=== PATIENT | male | born 1965 | race Caucasian/White ===

== ENCOUNTER → 2018-04-10 09:07 | Outpatient (REF) | payer MEDICAID, SELFPAY ==
[2018-04-10 20:16] LABS: Abs Immature Grans 0.01 k/cumm (0.0-0.09); Absolute Basophil Count 0.02 k/cumm (0.0-0.2); Absolute Eosinophil Count 0.43 k/cumm (0.0-0.7); Absolute Lymphocyte Count 2.38 k/cumm (1.2-3.4); Absolute Monocyte Count 0.66 k/cumm (0.11-0.7); Absolute Neutrophil Count 4.46 k/cumm (1.2-6.7); Basophils % 0.3; Eosinophils % 5.4; HGB 13.5 g/dL (13.5-17.5); Immature Grans % 0.1; Lymphocytes % 29.9; Mean Corp. HGB Concentration 32.9 g/dL (32.0-36.0); Mean Corpuscular Hemoglobin 31.5 pg (27.0-33.0); Mean Corpuscular Volume 95.6 fL (80-95); Mean Platelet Volume 10.9 fL (8.0-11.0); Monocytes % 8.3; Platelet Count 151 x1000/uL (130-400); RBC 4.29 m/cumm (4.50-6.00); RBC Distribution Width 14.9 % (11.8-14.1); White Blood Cell Count 7.96 k/cumm (4.4-10.8)
== END ==
LOC: NCHCN 09:07
PROVIDERS: PCP Internal Medicine; Visit Provider Internal Medicine
DX: F20.9 Schizophrenia, unspecified (principal); Z79.899 Other long term (current) drug therapy
CPT/HCPCS: 85025

== ENCOUNTER → 2018-05-08 15:51 | Outpatient (REF) | payer MEDICAID, SELFPAY ==
[2018-05-08 19:46] LABS: Abs Immature Grans 0.01 k/cumm (0.0-0.09); Absolute Basophil Count 0.02 k/cumm (0.0-0.2); Absolute Eosinophil Count 0.22 k/cumm (0.0-0.7); Absolute Lymphocyte Count 2.11 k/cumm (1.2-3.4); Absolute Monocyte Count 0.72 k/cumm (0.11-0.7); Absolute Neutrophil Count 6.09 k/cumm (1.2-6.7); Basophils % 0.2; Eosinophils % 2.4; HCT 42.9 % (40.0-50.0); Immature Grans % 0.1; Mean Corp. HGB Concentration 32.6 g/dL (32.0-36.0); Mean Corpuscular Hemoglobin 31.1 pg (27.0-33.0); Mean Corpuscular Volume 95.3 fL (80-95); Mean Platelet Volume 10.2 fL (8.0-11.0); Monocytes % 7.9; Neutrophils % 66.4; Platelet Count 169 x1000/uL (130-400); RBC Distribution Width 14.9 % (11.8-14.1); White Blood Cell Count 9.17 k/cumm (4.4-10.8)
== END ==
LOC: NCHCN 15:51
PROVIDERS: PCP Internal Medicine; Visit Provider Internal Medicine
DX: Z51.81 Encounter for therapeutic drug level monitoring (principal); Z79.899 Other long term (current) drug therapy; F20.9 Schizophrenia, unspecified
CPT/HCPCS: 85025

== ENCOUNTER 2018-06-05 10:29 | Outpatient (REF) | payer MEDICAID, SELFPAY ==
[2018-06-05 20:36] LABS: Abs Immature Grans 0.02 k/cumm (0.0-0.09); Absolute Basophil Count 0.03 k/cumm (0.0-0.2); Absolute Eosinophil Count 0.56 k/cumm (0.0-0.7); Absolute Lymphocyte Count 2.44 k/cumm (1.2-3.4); Absolute Monocyte Count 0.79 k/cumm (0.11-0.7); Absolute Neutrophil Count 7.28 k/cumm (1.2-6.7); Basophils % 0.3; HCT 39.7 % (40.0-50.0); HGB 13.2 g/dL (13.5-17.5); Immature Grans % 0.2; Lymphocytes % 21.9; Mean Corp. HGB Concentration 33.2 g/dL (32.0-36.0); Mean Corpuscular Hemoglobin 31.4 pg (27.0-33.0); Mean Corpuscular Volume 94.3 fL (80-95); Monocytes % 7.1; Neutrophils % 65.5; Platelet Count 216 x1000/uL (130-400); RBC 4.21 m/cumm (4.50-6.00); RBC Distribution Width 14.3 % (11.8-14.1); White Blood Cell Count 11.12 k/cumm (4.4-10.8)
== END 2018-06-05 10:49 ==
LOC: NCHCN 10:29
PROVIDERS: PCP Internal Medicine; Visit Provider Internal Medicine
DX: Z51.81 Encounter for therapeutic drug level monitoring (principal)
CPT/HCPCS: 85025

== ENCOUNTER 2018-07-02 20:05 | Outpatient (RCR) | payer MEDICAID, SELFPAY ==
[2018-07-02 21:46] LABS: Abs Immature Grans 0.03 k/cumm (0.0-0.09); Absolute Basophil Count 0.04 k/cumm (0.0-0.2); Absolute Eosinophil Count 0.52 k/cumm (0.0-0.7); Absolute Monocyte Count 1.02 k/cumm (0.11-0.7); Basophils % 0.3; HCT 40.8 % (40.0-50.0); HGB 13.5 g/dL (13.5-17.5); Immature Grans % 0.2; Lymphocytes % 19.8; Mean Corp. HGB Concentration 33.1 g/dL (32.0-36.0); Mean Corpuscular Hemoglobin 31.6 pg (27.0-33.0); Mean Corpuscular Volume 95.6 fL (80-95); Mean Platelet Volume 11.1 fL (8.0-11.0); Monocytes % 7.8; Neutrophils % 67.9; Platelet Count 169 x1000/uL (130-400); RBC 4.27 m/cumm (4.50-6.00); RBC Distribution Width 15.3 % (11.8-14.1); White Blood Cell Count 13.11 k/cumm (4.4-10.8)
== END 2018-07-10 23:59 | disposition home or self-care (01) ==
LOC: NCHCN 20:05
PROVIDERS: PCP Internal Medicine; Visit Provider Internal Medicine
DX: Z51.81 Encounter for therapeutic drug level monitoring (principal)
CPT/HCPCS: 85025

== ENCOUNTER 2018-07-30 13:18 | Outpatient (REF) | payer MEDICAID, SELFPAY ==
[2018-07-30 19:38] LABS: Abs Immature Grans 0.02 k/cumm (0.0-0.09); Absolute Basophil Count 0.03 k/cumm (0.0-0.2); Absolute Eosinophil Count 0.32 k/cumm (0.0-0.7); Absolute Lymphocyte Count 1.76 k/cumm (1.2-3.4); Absolute Monocyte Count 0.55 k/cumm (0.11-0.7); Basophils % 0.4; Eosinophils % 4.4; HCT 42.3 % (40.0-50.0); HGB 13.9 g/dL (13.5-17.5); Immature Grans % 0.3; Lymphocytes % 24.2; Mean Corp. HGB Concentration 32.9 g/dL (32.0-36.0); Mean Corpuscular Hemoglobin 31.2 pg (27.0-33.0); Mean Corpuscular Volume 95.1 fL (80-95); Mean Platelet Volume 10.5 fL (8.0-11.0); Monocytes % 7.6; Neutrophils % 63.1; Platelet Count 183 x1000/uL (130-400); RBC 4.45 m/cumm (4.50-6.00); RBC Distribution Width 14.7 % (11.8-14.1); White Blood Cell Count 7.28 k/cumm (4.4-10.8)
[2018-07-30 19:51] LABS: ALT 18 U/L (12-78); AST 25 U/L (15-37); Albumin 4.1 g/dL (3.4-5.0); Alkaline Phosphatase 129 U/L (46-116); Anion Gap 9.7 mmol/L (3-11); BUN 12 mg/dL (7-18); Bilirubin, Total 0.3 mg/dL (0.2-1.0); CO2 29.3 mmol/L (21.0-32.0); CREATININE 1.16 mg/dL (0.70-1.30); Calcium 9.8 mg/dL (8.5-10.1); Chloride 100 mmol/L (98-107); Glucose 99 mg/dL (70-100); LDL CHOLESTEROL 145 mg/dL (<100); Potassium 4.3 mmol/L (3.5-5.1); Sodium 139 mmol/L (136-145); TSH 1.49 uIU/mL (0.358-3.74); Total Protein 7.9 g/dL (6.4-8.2)
== END 2018-07-30 13:38 ==
LOC: NCHCN 13:18
PROVIDERS: PCP Internal Medicine; Visit Provider Internal Medicine
DX: F20.9 Schizophrenia, unspecified (principal); Z79.899 Other long term (current) drug therapy; E78.5 Hyperlipidemia, unspecified; Z13.29 Encounter for screening for other suspected endocrine disorder
CPT/HCPCS: 80053; 83721; 84443; 85025

== ENCOUNTER 2018-08-26 19:08 | Outpatient (REF) | payer MEDICAID, SELFPAY ==
[2018-08-26 19:40] LABS: Abs Immature Grans 0.01 k/cumm (0.0-0.09); Absolute Basophil Count 0.02 k/cumm (0.0-0.2); Absolute Eosinophil Count 0.54 k/cumm (0.0-0.7); Absolute Lymphocyte Count 2.86 k/cumm (1.2-3.4); Absolute Monocyte Count 0.73 k/cumm (0.11-0.7); Absolute Neutrophil Count 6.19 k/cumm (1.2-6.7); Basophils % 0.2; Eosinophils % 5.2; HCT 39.3 % (40.0-50.0); Immature Grans % 0.1; Lymphocytes % 27.6; Mean Corp. HGB Concentration 33.1 g/dL (32.0-36.0); Mean Corpuscular Hemoglobin 31.5 pg (27.0-33.0); Mean Corpuscular Volume 95.2 fL (80-95); Mean Platelet Volume 11.2 fL (8.0-11.0); Monocytes % 7.1; Neutrophils % 59.8; Platelet Count 174 x1000/uL (130-400); RBC 4.13 m/cumm (4.50-6.00); RBC Distribution Width 14.2 % (11.8-14.1); White Blood Cell Count 10.35 k/cumm (4.4-10.8)
== END 2018-08-26 19:28 ==
LOC: NCHCN 19:08
PROVIDERS: PCP Internal Medicine; Visit Provider Internal Medicine
DX: Z51.81 Encounter for therapeutic drug level monitoring (principal); Z79.899 Other long term (current) drug therapy
CPT/HCPCS: 85025

== ENCOUNTER 2018-09-24 14:18 | Outpatient (REF) | payer MEDICAID, SELFPAY ==
[2018-09-24 19:27] LABS: Abs Immature Grans 0.01 k/cumm (0.0-0.09); Absolute Basophil Count 0.02 k/cumm (0.0-0.2); Absolute Eosinophil Count 0.31 k/cumm (0.0-0.7); Absolute Lymphocyte Count 2.32 k/cumm (1.2-3.4); Absolute Monocyte Count 0.86 k/cumm (0.11-0.7); Absolute Neutrophil Count 5.62 k/cumm (1.2-6.7); Basophils % 0.2; Eosinophils % 3.4; HCT 38.9 % (40.0-50.0); Immature Grans % 0.1; Lymphocytes % 25.4; Mean Corp. HGB Concentration 33.4 g/dL (32.0-36.0); Mean Corpuscular Hemoglobin 31.3 pg (27.0-33.0); Mean Corpuscular Volume 93.7 fL (80-95); Mean Platelet Volume 10.2 fL (8.0-11.0); Monocytes % 9.4; Neutrophils % 61.5; Platelet Count 155 x1000/uL (130-400); RBC 4.15 m/cumm (4.50-6.00); RBC Distribution Width 13.6 % (11.8-14.1); White Blood Cell Count 9.14 k/cumm (4.4-10.8)
== END 2018-09-24 14:38 ==
LOC: NCHCN 14:18
PROVIDERS: PCP Internal Medicine; Visit Provider Internal Medicine
DX: F20.9 Schizophrenia, unspecified (principal); Z51.81 Encounter for therapeutic drug level monitoring; Z79.899 Other long term (current) drug therapy
CPT/HCPCS: 85025

== ENCOUNTER 2018-10-22 09:37 | Outpatient (REF) | payer MEDICAID, SELFPAY ==
[2018-10-22 18:22] LABS: Abs Immature Grans 0.08 k/cumm (0.0-0.09); Absolute Basophil Count 0.01 k/cumm (0.0-0.2); Absolute Eosinophil Count 0.17 k/cumm (0.0-0.7); Absolute Monocyte Count 1.37 k/cumm (0.11-0.7); Absolute Neutrophil Count 10.55 k/cumm (1.2-6.7); Basophils % 0.1; Eosinophils % 1.2; HCT 38.3 % (40.0-50.0); HGB 12.9 g/dL (13.5-17.5); Immature Grans % 0.6; Lymphocytes % 12.9; Mean Corp. HGB Concentration 33.7 g/dL (32.0-36.0); Mean Corpuscular Hemoglobin 31.5 pg (27.0-33.0); Mean Corpuscular Volume 93.6 fL (80-95); Monocytes % 9.8; Neutrophils % 75.4; Platelet Count 145 x1000/uL (130-400); RBC 4.09 m/cumm (4.50-6.00); RBC Distribution Width 12.9 % (11.8-14.1); White Blood Cell Count 13.99 k/cumm (4.4-10.8)
== END 2018-10-22 09:57 ==
LOC: NCHCN 09:37
PROVIDERS: PCP Internal Medicine; Visit Provider Internal Medicine
DX: Z51.81 Encounter for therapeutic drug level monitoring (principal); Z79.899 Other long term (current) drug therapy
CPT/HCPCS: 85025

== ENCOUNTER 2018-11-20 21:32 | Outpatient (REF) | payer MEDICAID, SELFPAY ==
[2018-11-20 21:23] LABS: Abs Immature Grans 0.01 k/cumm (0.0-0.09); Absolute Basophil Count 0.02 k/cumm (0.0-0.2); Absolute Eosinophil Count 0.21 k/cumm (0.0-0.7); Absolute Monocyte Count 0.71 k/cumm (0.11-0.7); Absolute Neutrophil Count 5.49 k/cumm (1.2-6.7); Basophils % 0.2; Eosinophils % 2.6; HCT 40.2 % (40.0-50.0); HGB 13.6 g/dL (13.5-17.5); Immature Grans % 0.1; Lymphocytes % 20.9; Mean Corp. HGB Concentration 33.8 g/dL (32.0-36.0); Mean Corpuscular Hemoglobin 31.8 pg (27.0-33.0); Mean Corpuscular Volume 93.9 fL (80-95); Monocytes % 8.7; Neutrophils % 67.5; Platelet Count 186 x1000/uL (130-400); RBC 4.28 m/cumm (4.50-6.00); RBC Distribution Width 13.7 % (11.8-14.1); Reticulocyte 1.8 % (0.5-2.4); White Blood Cell Count 8.14 k/cumm (4.4-10.8)
[2018-11-20 21:33] LABS: Iron 71 ug/dL (50-175)
[2018-11-20 21:58] LABS: ALT 19 U/L (12-78); AST 30 U/L (15-37); Albumin 4.3 g/dL (3.4-5.0); Alkaline Phosphatase 148 U/L (46-116); Anion Gap 9.9 mmol/L (3-11); BUN 5 mg/dL (7-18); Bilirubin, Total 0.4 mg/dL (0.2-1.0); CO2 29.1 mmol/L (21.0-32.0); CREATININE 1.14 mg/dL (0.70-1.30); Calcium 9.9 mg/dL (8.5-10.1); Chloride 94 mmol/L (98-107); Ferritin 186 ng/mL (8-388); Folate 16.7 ng/mL (8.6-20.0); Glucose 109 mg/dL (70-100); Potassium 4.3 mmol/L (3.5-5.1); Sodium 133 mmol/L (136-145); Vitamin B12 496 pg/mL (193-986)
[2018-11-22 09:36] LABS: Hepatitis C Ab w Rflx HCV PCR Negative (NEGAT)
[2018-11-26 13:22] LABS: Methylmalonic Acid 0.18 nmol/mL (<=0.40)
== END 2018-11-20 21:52 ==
LOC: NCHCN 21:32
PROVIDERS: PCP Internal Medicine; Visit Provider Internal Medicine
DX: E78.5 Hyperlipidemia, unspecified (principal); K21.9 Gastro-esophageal reflux disease without esophagitis; F20.9 Schizophrenia, unspecified; Z51.81 Encounter for therapeutic drug level monitoring; Z11.59 Encounter for screening for other viral diseases
CPT/HCPCS: 80053; 80186; 86803; 82607; 82728; 82746; 83540; 85025; 85045

== ENCOUNTER 2018-12-17 10:58 | Outpatient (REF) | payer MEDICAID, SELFPAY ==
[2018-12-17 19:02] LABS: HCT 40.6 % (40.0-50.0); HGB 13.6 g/dL (13.5-17.5); Mean Corp. HGB Concentration 33.5 g/dL (32.0-36.0); Mean Corpuscular Hemoglobin 31.5 pg (27.0-33.0); Mean Platelet Volume 10.1 fL (8.0-11.0); Platelet Count 177 x1000/uL (130-400); RBC 4.32 m/cumm (4.50-6.00); RBC Distribution Width 13.5 % (11.8-14.1); White Blood Cell Count 7.81 k/cumm (4.4-10.8)
[2018-12-17 19:07] LABS: TSH 0.91 uIU/mL (0.358-3.74)
[2018-12-17 19:15] LABS: GGT 121 U/L (15-85)
[2018-12-18 14:14] LABS: Abs Immature Grans 0.03 k/cumm (0.0-0.09); Absolute Basophil Count 0.02 k/cumm (0.0-0.2); Absolute Eosinophil Count 0.25 k/cumm (0.0-0.7); Absolute Lymphocyte Count 1.93 k/cumm (1.2-3.4); Absolute Monocyte Count 0.64 k/cumm (0.11-0.7); Absolute Neutrophil Count 4.94 k/cumm (1.2-6.7); Basophils % 0.3; Eosinophils % 3.2; Immature Grans % 0.4; Lymphocytes % 24.7; Monocytes % 8.2; Neutrophils % 63.2
[2018-12-19 06:08] LABS: Vitamin D 25 Total 24.4 ng/ml (30-100)
== END 2018-12-17 11:18 ==
LOC: NCHCN 10:58
PROVIDERS: PCP Internal Medicine; Visit Provider Internal Medicine
DX: Z00.00 Encounter for general adult medical examination without abnormal findings (principal); Z51.81 Encounter for therapeutic drug level monitoring
CPT/HCPCS: 82306; 85027; 82977; 84443; 85007

== ENCOUNTER 2019-01-14 09:36 | Outpatient (REF) | payer MEDICAID, SELFPAY ==
[2019-01-14 20:07] LABS: Abs Immature Grans 0.01 k/cumm (0.0-0.09); Absolute Basophil Count 0.01 k/cumm (0.0-0.2); Absolute Eosinophil Count 0.18 k/cumm (0.0-0.7); Absolute Lymphocyte Count 1.92 k/cumm (1.2-3.4); Absolute Monocyte Count 0.59 k/cumm (0.11-0.7); Basophils % 0.1; Eosinophils % 2.6; HCT 42.1 % (40.0-50.0); HGB 14.1 g/dL (13.5-17.5); Immature Grans % 0.1; Lymphocytes % 28.2; Mean Corp. HGB Concentration 33.5 g/dL (32.0-36.0); Mean Corpuscular Hemoglobin 31.3 pg (27.0-33.0); Mean Corpuscular Volume 93.3 fL (80-95); Mean Platelet Volume 10.5 fL (8.0-11.0); Monocytes % 8.7; Neutrophils % 60.3; Platelet Count 171 x1000/uL (130-400); RBC 4.51 m/cumm (4.50-6.00); RBC Distribution Width 13.4 % (11.8-14.1); White Blood Cell Count 6.81 k/cumm (4.4-10.8)
== END 2019-01-14 09:56 ==
LOC: NCHCN 09:36
PROVIDERS: PCP Internal Medicine; Visit Provider Internal Medicine
DX: Z51.81 Encounter for therapeutic drug level monitoring (principal)
CPT/HCPCS: 85025

== ENCOUNTER 2019-02-12 12:10 | Outpatient (REF) | payer MEDICAID, SELFPAY ==
[2019-02-12 20:12] LABS: Abs Immature Grans 0.01 k/cumm (0.0-0.09); Absolute Basophil Count 0.01 k/cumm (0.0-0.2); Absolute Eosinophil Count 0.26 k/cumm (0.0-0.7); Absolute Neutrophil Count 3.62 k/cumm (1.2-6.7); Basophils % 0.1; Eosinophils % 3.8; HGB 13.9 g/dL (13.5-17.5); Immature Grans % 0.1; Lymphocytes % 33.8; Mean Corp. HGB Concentration 33.9 g/dL (32.0-36.0); Mean Corpuscular Hemoglobin 31.6 pg (27.0-33.0); Mean Corpuscular Volume 93.2 fL (80-95); Monocytes % 8.8; Neutrophils % 53.4; Platelet Count 177 x1000/uL (130-400); RBC Distribution Width 13.8 % (11.8-14.1)
== END 2019-02-12 12:30 ==
LOC: NCHCN 12:10
PROVIDERS: PCP Internal Medicine; Visit Provider Internal Medicine
DX: Z79.899 Other long term (current) drug therapy (principal); Z51.81 Encounter for therapeutic drug level monitoring
CPT/HCPCS: 85025

== ENCOUNTER 2019-03-18 11:28 | Outpatient (REF) | payer MEDICAID, SELFPAY ==
[2019-03-18 18:50] LABS: Abs Immature Grans 0.02 k/cumm (0.0-0.09); Absolute Basophil Count 0.02 k/cumm (0.0-0.2); Absolute Eosinophil Count 0.23 k/cumm (0.0-0.7); Absolute Neutrophil Count 4.37 k/cumm (1.2-6.7); Basophils % 0.3; Eosinophils % 3.1; HCT 40.4 % (40.0-50.0); HGB 13.6 g/dL (13.5-17.5); Immature Grans % 0.3; Lymphocytes % 31.8; Mean Corp. HGB Concentration 33.7 g/dL (32.0-36.0); Mean Corpuscular Hemoglobin 31.2 pg (27.0-33.0); Mean Corpuscular Volume 92.7 fL (80-95); Mean Platelet Volume 10.6 fL (8.0-11.0); Monocytes % 6.6; Neutrophils % 57.9; Platelet Count 128 x1000/uL (130-400); RBC 4.36 m/cumm (4.50-6.00); RBC Distribution Width 13.9 % (11.8-14.1); White Blood Cell Count 7.54 k/cumm (4.4-10.8)
== END 2019-03-18 11:48 ==
LOC: NCHCN 11:28
PROVIDERS: PCP Internal Medicine; Visit Provider Internal Medicine
DX: Z51.81 Encounter for therapeutic drug level monitoring (principal); Z79.899 Other long term (current) drug therapy
CPT/HCPCS: 85025

== ENCOUNTER 2019-03-20 09:21 | Emergency (ER) | payer MEDICAID, SELFPAY ==
--- NOTE | 2019-03-20 09:23 | ED.GENADUL_ITS ---
Discharge Plan Disposition Patient Disposition: HOME Condition: Improving Discharge Details Chief Complaint: Abd Prob Clinical Impression: Ileus, Constipation, Nausea & vomiting, Dehydration Primary Care Provider: Vaibhav Brock ED Provider: Jailene Velasquez [place] Meds and New Rx's Prescriptions: New ondansetron 4 mg tablet,disintegrating 4 mg PO TID PRN (Reason: nausea and vomiting) Qty: 10 RF: 0 Continued Myrbetriq 25 MG tablet extended release 24 hr 25 mg PO DAILY Qty: 30 RF: 12 tamsulosin [Flomax] 0.4 mg capsule 0.4 mg PO DAILY Qty: 90 RF: 4 clonazepam 0.5 mg Tablet 0.5 - 1 mg PO TID PRNRF: 0 carbamazepine 200 mg Tablet 200 mg PO BID RF: 0 acetaminophen 325 MG tablet 650 mg PO PRN PRN (Reason: Discomfort) RF: 0 polyethylene glycol 3350 17 GM powder in packet 17 gm PO DAILY RF: 0 clozapine [Clozaril] 100 MG tablet 300 mg PO DAILY AM RF: 0 clonazepam 0.5 MG tablet 0.5 mg PO BID RF: 0 propranolol 60 MG tablet 60 mg PO BID RF: 0 simvastatin 40 MG tablet 60 mg PO HS RF: 0 pantoprazole 40 MG tablet,delayed release (DR/EC) 40 mg PO DAILY RF: 0 buspirone 10 MG tablet 20 mg PO HS RF: 0 benztropine 2 MG tablet 2 mg PO BID RF: 0 risperidone 4 MG tablet,disintegrating 6 mg PO HS RF: 0 Discharge Instructions Instructions: Constipation (ED), Dehydration (ED), Ileus (ED) Additional Instructions: You need to increase the amount of water you drink on a daily basis. Cut back on the soda. Pain increase in your water, you will soften your stools. Please take a stool softener after daily. Please follow-up with your primary care, call today to schedule follow-up within the next few days. Monitor for worsening symptoms including increased pain, fever/chills, inability stay hydrated. If these or other new/worsening symptoms arise please seek care urgently once again. You may use the Zofran as prescribed if you develop recurrence of your nausea. Referrals: Vaibhav Brock [Primary Care Provider] - Discharge Data Discharge Date/Time-TO BE ENTERED AT DEPARTURE: 03/20/19 12:46 Medical Decision Making Patient is a 53-year-old male, accompanied by home care provider, presenting today with c/c of abdominal pain. He reports that he awoke this morning at 2 AM with abdominal discomfort, nausea and vomiting. No change in bowel or bladder habits. No previous abdominal surgeries. He reports that he has had fairly generalized abdominal discomfort since onset. States that it is slightly improved at this time. Has had 3 episodes of emesis. He does report chronic dry heaves but states that this is typically associated with coughing fit that he has every morning. Patient is a heavy smoker and smokes 2 packs/day. On exam, the patient appears nontoxic. His abdomen is round but soft with no peritoneal findings. Normal bowel sounds. Endorses generalized discomfort but seems to be maximal over the left lower quadrant. And concern for possible diverticulitis versus other etiology. He denies any pain radiating into the testicles. No back pain. Plan for laboratory evaluation and CT scan. Patient denies nausea at this time. Laboratory evaluation significant for leukocytosis with white count of 12.4. Creatinine 1.31 which is up from patient's baseline. Is likely associated with his vomiting and dehydrated state. Patient receiving IV fluids. He is drinking here, able to tolerate his daily medications which were offered by his home care provider. CT reviewed by radiologist: MPRESSION: 1. Large amount of stool throughout the colon suspicious for c onstipation. 2. Mild to moderately dilated loops of small bowel without transition point, which may represent an ileus. 3. Nonspecific trace amount of free fluid in the pelvis. Discussed findings with the patient. He takes Miralax occasionally for constipation. he has history of constipation. Discussed using oral treatment vs. enema. Patient feels he is able to have a BM at this point. Patient was able to have a very large bowel movement. Patient feeling much improved. Has not had any nausea or vomiting here today. No pain on reexamination of abdomen. Patient drinking water. Typically only drinks soda, patient was counseled on this. Called [facility] where patient resides and gave report, customer care specialist is calling patients PCP for appointmenttomorrow for reevaluation. Advised that his nausea and vomiting may be associated with viral illness. Will be prescribed Zofran for any recurrence of symptoms. Advise close follow-up with primary care, care provider is contacting PCP to arrange for follow-up. Encourage hydration. Advised on new/worsening symptoms that should prompt him to seek emergent evaluation once again. Advised that he stick with a daily bowel regimen at this time. All the questions and concerns were addressed and they are in agreement with this plan. HPI General Mode of arrival: ambulatory . Date/Time Provider Initiated Documentation: 03/20/19 09:22 . Limitations to Documentation: no limitations . Information obtained by: patient, family (Accompanied by home care provider) and RN notes reviewed . History of Present Illness 53 year old M presents to the emergency department with the chief complaint of abdominal pain, nausea/vomiting, described as moderate, Quality is described as aching, and is localized to the abdomen. Patient reports no radiation. Patient started experiencing this hour(s) (0200) and it has been constant. No relieving factors improve symptom(s), No exacerbating factors reported . Patient notes cough (chronic, smokes 2ppd), loss of appetite and nausea/vomiting; denies chest pain, diaphoresis, fever/chills, headaches, malaise, rash, shortness of breath and weakness. Patient did receive the following treatments prior to arrival, none Related Data Home Medications Medication Instructions Recorded Confirmed acetaminophen 650 mg PO PRN PRN 01/19/17 03/20/19 benztropine 2 mg PO BID 01/19/17 03/20/19 buspirone 20 mg PO HS 01/19/17 03/20/19 clonazepam 0.5 mg PO BID 01/19/17 03/20/19 clozapine [Clozaril] 300 mg PO DAILY AM 01/19/17 03/20/19 pantoprazole 40 mg PO DAILY 01/19/17 03/20/19 polyethylene glycol 3350 17 gm PO DAILY 01/19/17 03/20/19 propranolol 60 mg PO BID 01/19/17 03/20/19 risperidone 6 mg PO HS 01/19/17 03/20/19 simvastatin 60 mg PO HS 01/19/17 03/20/19 Myrbetriq 25 mg PO DAILY #30 tab-cap 02/15/18 03/20/19 tamsulosin 0.4 mg capsule 0.4 mg PO DAILY #90 tab-cap 07/09/18 03/20/19 carbamazepine 200 mg PO BID 03/20/19 03/20/19 clonazepam 0.5 - 1 mg PO TID PRN 03/20/19 03/20/19 ondansetron 4 mg PO TID PRN #10 tab 03/20/19 Previous Rx's Medication Instructions Recorded Myrbetriq 25 mg PO DAILY #30 tab-cap 02/15/18 tamsulosin 0.4 mg capsule 0.4 mg PO DAILY #90 tab-cap 07/09/18 ondansetron 4 mg PO TID PRN #10 tab 03/20/19 Allergies Allergy/AdvReac Type Severity Reaction Status Date / Time No Known Allergies Allergy Unverified 03/20/19 09:33 Review of Systems Constitutional Reports as per HPI, Denies chills, Denies fatigue, Denies fever(s) and Denies headache(s) ENT Denies headache(s) Cardiovascular Reports as per HPI, Denies chest pain and Denies dyspnea Respiratory Reports as per HPI, Denies cough and Denies dyspnea Gastrointestinal Reports as per HPI Genitourinary Denies system reviewed and no additional complaints, except as docu (patient denies any change in urinary habits) Musculoskeletal Reports as per HPI and Denies back pain Integumentary/Breasts Reports as per HPI and Denies rash Neurologic Reports as per HPI and Denies headache(s) Endocrine Denies fatigue [facility] Medical History Paranoid schizophrenia (Acute) Social History Smoking/Tobacco Use Status: Current every day Alcohol Intake: never Drug use: Never Substance use type: does not use Do you feel safe at home: Yes Do you feel safe in your relationship?: Yes Exam Const General: cooperative, healthy appearing, comfortable, no acute distress and well developed Nutritional Appearance: average body habitus and well nourished Orientation: alert and awake [facility] Head: normal to inspection Mouth: moist mucous membranes Resp Effort & Inspection: normal respiratory effort, able to speak in complete sentences and no respiratory distress Auscultation: clear to auscultation bilaterally, no rales, no rhonchi and no wheezes Cardio Rate: regular rate Rhythm: regular rhythm Heart Sounds: S1 normal and S2 normal GI Inspection: distended (patients abdomen round and firm, he reports this is typical for him) and no large pannus Palpation: soft, no hepatosplenomegaly, no aortic enlargement, no guarding, not rigid and nontender Percussion: normal to percussion Auscultation: normal bowel sounds Back/Spine/Pelvis Back: no CVA tenderness Skin General skin exam: no rashes or lesions noted Trauma: no lacerations or abrasions Neuro General: alert and awake Cognition: normal cognition Speech: speech normal Gait: normal gait Psych Appearance: grossly normal and well kempt Mental Status: mental status grossly normal Speech and Movement: speech and movement normal
[2019-03-20 09:28] VITALS: BP 116/93; PULSE 104; RESP 16; TEMP 36.6; O2SAT 99
--- NOTE | 2019-03-20 09:39 | DI.CT_ITS ---
SYMPTOMS/DIAGNOSIS: LEFT LOWER QUADRANT PAIN, NAUSEA/VOMITING X [address] SCAN OF THE ABDOMEN AND PELVIS: CT scan of the abdomen and pelvis was performed following the uneventful administration of intravenous contrast material. Comparison CT scan of the pelvis was 01/19/17. Mild dependent atelectatic changes are seen in the lung bases. The liver is normal in size. No suspicious hepatic mass is seen. The portal, superior mesenteric and splenic veins are patent. The gallbladder is negative. There is no biliary ductal dilatation. The pancreas and peripancreatic soft tissues are unremarkable. There are calcified splenic granulomas seen. The adrenal glands are unremarkable. The kidneys show normal and symmetric enhancement. No evidence of a solid renal mass or obstruction. The urinary bladder is intact and incompletely distended. The reproductive organs are unremarkable. There is atherosclerosis of the abdominal aorta, but no aneurysmal dilatation is present. No significant abdominal or pelvic adenopathy or pneumoperitoneum is present. There is a large amount of stool seen throughout the colon and rectum. No bowel wall thickening is present. There is mild to moderate distention of the small bowel throughout its length. No transition point is seen. No significant bowel wall thickening is present. This may represent an ileus. There is a trace amount of free fluid in the pelvis, which is nonspecific. Degenerative changes are seen in the spine. IMPRESSION: 1. Large amount of stool throughout the colon suspicious for constipation. 2. Mild to moderately dilated loops of small bowel without transition point, which may represent an ileus. 3. Nonspecific trace amount of free fluid in the pelvis. The findings were discussed with the Emergency Department on the date of the examination.
[2019-03-20] MEDS: Normal Saline 1,000 ML 1000 ML IV ×2 (10:00→12:01)
[2019-03-20 10:09] LABS: Abs Immature Grans 0.02 k/cumm (0.0-0.09); Absolute Basophil Count 0.01 k/cumm (0.0-0.2); Absolute Eosinophil Count 0.09 k/cumm (0.0-0.7); Absolute Lymphocyte Count 1.96 k/cumm (1.2-3.4); Absolute Monocyte Count 0.76 k/cumm (0.11-0.7); Absolute Neutrophil Count 9.56 k/cumm (1.2-6.7); Basophils % 0.1; Eosinophils % 0.7; HCT 43.9 % (40.0-50.0); HGB 15.2 g/dL (13.5-17.5); Immature Grans % 0.2; Lymphocytes % 15.8; Mean Corp. HGB Concentration 34.6 g/dL (32.0-36.0); Mean Corpuscular Hemoglobin 31.7 pg (27.0-33.0); Mean Corpuscular Volume 91.5 fL (80-95); Mean Platelet Volume 9.1 fL (8.0-11.0); Monocytes % 6.1; Neutrophils % 77.1; Platelet Count 191 x1000/uL (130-400); RBC Distribution Width 14.1 % (11.8-14.1)
[2019-03-20 10:24] LABS: ALT 24 U/L (12-78); AST 24 U/L (15-37); Albumin 4.6 g/dL (3.4-5.0); Alkaline Phosphatase 160 U/L (46-116); Anion Gap 11.8 mmol/L (3-11); BUN 17 mg/dL (7-18); Bilirubin, Total 0.5 mg/dL (0.2-1.0); CO2 29.2 mmol/L (21.0-32.0); CREATININE 1.31 mg/dL (0.70-1.30); Calcium 9.8 mg/dL (8.5-10.1); Chloride 92 mmol/L (98-107); Estimated GFR 57.46 (mL/min/1.73m2); Glucose 123 mg/dL (70-100); Lipase 107 U/L (73-393); Magnesium 2.1 mg/dL (1.8-2.4); Potassium 4.3 mmol/L (3.5-5.1); Sodium 133 mmol/L (136-145); Total Protein 8.7 g/dL (6.4-8.2)
[2019-03-20 10:26] LABS: Troponin I < 0.05 ng/mL (0.00-0.06)
[2019-03-20] MEDS: Omnipaque 350 MG/ML 100 ML BTL IV (11:09)
[2019-03-20 11:39] LABS: Bilirubin Negative (Negative); Blood Trace-intact (Negative); Clarity Clear (Clear); Glucose Negative (Negative); Ketones Negative (Negative); Leukocyte Esterase Negative (Negative); Nitrite Negative (Negative); Urobilinogen 0.2 EU/dL (Up TO 0.2)
--- NOTE | 2019-03-20 11:55 | NUR.NOTE ---
Nursing Note: pt stated that he need to have a bowel movement, ambulated to bathroom and had an extremely large soft brown bowel movement.
[2019-03-20 12:01] LABS: Bacteria Negative HPF (Negative); C & S Indicated? No; Casts Negative LPF (Negative); Crystals Negative HPF (Negative); Epithelial Cells Negative HPF (Negative); Mucus Negative (Negative); RBC 0-2 (0-2); WBC Negative HPF (0-5)
[2019-03-20 12:45] VITALS: BP 116/90; PULSE 90; RESP 16; TEMP 36.6; O2SAT 99
== END 2019-03-20 12:46 | disposition home or self-care (01) ==
PROVIDERS: Emergency Provider Physician Assistant; PCP Internal Medicine
DX: K56.7 Ileus, unspecified (principal); K59.00 Constipation, unspecified; R11.2 Nausea with vomiting, unspecified; E86.0 Dehydration; R10.84 Generalized abdominal pain; F17.210 Nicotine dependence, cigarettes, uncomplicated
CPT/HCPCS: 36415; 80053; 83690; 93005; 96360; 96361; 99285; 74177; 81003; 81015; 83735; 84484; 85025; 93010; 99284; J3490

== ENCOUNTER 2019-04-08 18:23 | Outpatient (REF) | payer MEDICAID, SELFPAY ==
[2019-04-08 18:49] LABS: Abs Immature Grans 0.01 k/cumm (0.0-0.09); Absolute Basophil Count 0.01 k/cumm (0.0-0.2); Absolute Eosinophil Count 0.31 k/cumm (0.0-0.7); Absolute Lymphocyte Count 2.18 k/cumm (1.2-3.4); Absolute Monocyte Count 0.44 k/cumm (0.11-0.7); Absolute Neutrophil Count 4.67 k/cumm (1.2-6.7); Basophils % 0.1; Eosinophils % 4.1; HCT 38.3 % (40.0-50.0); HGB 13.2 g/dL (13.5-17.5); Immature Grans % 0.1; Lymphocytes % 28.6; Mean Corp. HGB Concentration 34.5 g/dL (32.0-36.0); Mean Corpuscular Hemoglobin 31.6 pg (27.0-33.0); Mean Corpuscular Volume 91.6 fL (80-95); Monocytes % 5.8; Neutrophils % 61.3; Platelet Count 175 x1000/uL (130-400); RBC 4.18 m/cumm (4.50-6.00); RBC Distribution Width 13.4 % (11.8-14.1); White Blood Cell Count 7.62 k/cumm (4.4-10.8)
== END 2019-04-08 18:43 ==
LOC: NCHCN 18:23
PROVIDERS: PCP Internal Medicine; Visit Provider Internal Medicine
DX: Z79.899 Other long term (current) drug therapy (principal)
CPT/HCPCS: 85025

== ENCOUNTER 2019-05-04 12:23 | Emergency (ER) | payer MEDICAID, SELFPAY ==
[2019-05-04 12:25] VITALS: BP 155/96; PULSE 80; RESP 18; TEMP 36.4; O2SAT 97
--- NOTE | 2019-05-04 13:26 | ED.GENADUL_ITS ---
Discharge Plan Disposition Patient Disposition: HOME Discharge Details Chief Complaint: Abd Prob Clinical Impression: Constipation Primary Care Provider: Vaibhav Brock ED Provider: George Zaidi Home Meds and New Rx's Prescriptions: New docusate sodium [Dulcolax Stool Softener (dss)] 100 mg capsule 100 mg PO DAILY Qty: 30 RF: 2 Continued Myrbetriq 25 MG tablet extended release 24 hr 25 mg PO DAILY Qty: 30 RF: 12 tamsulosin [Flomax] 0.4 mg capsule 0.4 mg PO QAM Qty: 90 RF: 4 clonazepam 0.5 mg Tablet 0.5 - 1 mg PO BID RF: 0 carbamazepine 200 mg Tablet 200 mg PO BID RF: 0 ondansetron 4 mg tablet,disintegrating 4 mg PO TID PRN (Reason: nausea and vomiting) Qty: 10 RF: 0 amantadine HCl 100 mg Tablet 100 mg PO BID RF: 0 diphenhydramine HCl [Benadryl] 25 mg Capsule 25 - 50 mg PO Q6H PRNRF: 0 ibuprofen 400 mg Tablet 400 mg PO TID PRNRF: 0 loperamide 2 mg Tablet 2 - 4 mg PO PRN PRNRF: 0 magnesium hydroxide [Milk of Magnesia] 400 mg/5 mL Suspension 5 - 15 ml PO PRN PRNRF: 0 Cerovite Senior Tablet 1 tab PO QAM RF: 0 cholecalciferol (vitamin D3) [Vitamin D3] 400 unit Tablet 400 unit PO QAM RF: 0 acetaminophen 325 MG tablet 650 mg PO PRN PRN (Reason: Discomfort) RF: 0 polyethylene glycol 3350 17 GM powder in packet 17 gm PO DAILY RF: 0 clozapine [Clozaril] 100 MG tablet 300 - 500 mg PO BID RF: 0 clonazepam 0.5 MG tablet 0.5 mg PO BID RF: 0 propranolol 60 MG tablet 60 mg PO BID RF: 0 simvastatin 40 MG tablet 60 mg PO HS RF: 0 pantoprazole 40 MG tablet,delayed release (DR/EC) 40 mg PO DAILY RF: 0 buspirone 10 MG tablet 20 mg PO QAM RF: 0 benztropine 2 MG tablet 2 mg PO BID RF: 0 risperidone 4 MG tablet,disintegrating 4 mg PO HS RF: 0 Discharge Instructions Instructions: Constipation (ED) Additional Instructions: Please follow-up with your primary care physician regarding your medications. Please take a stool softener like Dulcolax daily. Please contact your primary care physician to arrange follow-up. Return to the ER for any worsening or new concerning symptoms. Referrals: Vaibhav Brock [Primary Care Provider] - Discharge Data Discharge Date/Time-TO BE ENTERED AT DEPARTURE: 05/04/19 14:05 Medical Decision Making 53-year-old male here with constipation. Abdominal exam benign. Patient was given soapsuds enema here and had large bowel movement. Feeling much better, symptoms completely resolved. Usual customary discharge instructions were provided. HPI General Mode of arrival: ambulatory . Date/Time Provider Initiated Documentation: 05/04/19 12:26 . Limitations to Documentation: no limitations . Information obtained by: patient . HPI Narrative: 53-year-old male here with constipation. Patient notes no bowel movement over the past 4 days. Constipation is severe. Usually has bowel movements daily. He tried a stool softener/laxative which did not help. He has associated abdominal fullness. No vomiting. No fever. Patient had similar a couple months ago. Related Data Home Medications Medication Instructions Recorded Confirmed acetaminophen 650 mg PO PRN PRN 01/19/17 03/20/19 benztropine 2 mg PO BID 01/19/17 03/20/19 buspirone 20 mg PO QAM 01/19/17 05/04/19 clonazepam 0.5 mg PO BID 01/19/17 05/04/19 clozapine [Clozaril] 300 - 500 mg PO BID 01/19/17 05/04/19 pantoprazole 40 mg PO DAILY 01/19/17 05/04/19 polyethylene glycol 3350 17 gm PO DAILY 01/19/17 05/04/19 propranolol 60 mg PO BID 01/19/17 05/04/19 risperidone 4 mg PO HS 01/19/17 05/04/19 simvastatin 60 mg PO HS 01/19/17 05/04/19 Myrbetriq 25 mg PO DAILY #30 tab-cap 02/15/18 05/04/19 tamsulosin 0.4 mg capsule 0.4 mg PO QAM #90 tab-cap 07/09/18 05/04/19 carbamazepine 200 mg PO BID 03/20/19 05/04/19 clonazepam 0.5 - 1 mg PO BID 03/20/19 05/04/19 ondansetron 4 mg PO TID PRN #10 tab 03/20/19 Cerovite Senior 1 tab PO QAM 05/04/19 05/04/19 amantadine HCl 100 mg PO BID 05/04/19 05/04/19 cholecalciferol (vitamin D3) 400 unit PO QAM 05/04/19 05/04/19 [Vitamin D3] diphenhydramine HCl [Benadryl] 25 - 50 mg PO Q6H PRN 05/04/19 05/04/19 docusate sodium [Dulcolax Stool 100 mg PO DAILY #30 cap 05/04/19 Softener (dss)] ibuprofen 400 mg PO TID PRN 05/04/19 05/04/19 loperamide 2 - 4 mg PO PRN PRN 05/04/19 05/04/19 magnesium hydroxide [Milk of 5 - 15 ml PO PRN PRN 05/04/19 05/04/19 Magnesia] Previous Rx's Medication Instructions Recorded Myrbetriq 25 mg PO DAILY #30 tab-cap 02/15/18 tamsulosin 0.4 mg capsule 0.4 mg PO QAM #90 tab-cap 07/09/18 ondansetron 4 mg PO TID PRN #10 tab 03/20/19 docusate sodium [Dulcolax Stool 100 mg PO DAILY #30 cap 05/04/19 Softener (dss)] Allergies Allergy/AdvReac Type Severity Reaction Status Date / Time No Known Allergies Allergy Unverified 05/04/19 12:31 General Stated Complaint: Abd Prob MILENA: 3 Review of Systems Review of Systems All systems reviewed & are unremarkable except as noted in HPI and below Constitutional Denies fever(s) Gastrointestinal Reports as per HPI, Denies abdominal pain, Denies nausea and Denies vomiting PFSH Medical History Paranoid schizophrenia (Acute) Social History Smoking/Tobacco Use Status: Former Tobacco Use Quit Date: 04/20/19 Alcohol Intake: never Drug use: Never Substance use type: does not use Do you feel safe at home: Yes Do you feel safe in your relationship?: Yes Exam Const General: cooperative and no acute distress HENMT Mouth: moist mucous membranes Eyes Conjunctivae: normal conjunctivae Sclera: normal sclerae Resp Auscultation: clear to auscultation bilaterally, no rales, no rhonchi and no wheezes Cardio Jugular venous pressure: no JVD Rate: regular rate and not tachycardic Rhythm: regular rhythm GI Palpation: soft, not firm, no guarding, no masses, not rigid and nontender Neuro General: alert, awake and tone normal Extrem General: no edema Course Vital Signs Temperature 36.4 C L 05/04/19 12:25 Pulse 80 05/04/19 12:25 Respiratory Rate 18 05/04/19 12:25 Blood Pressure 155/96 H 05/04/19 12:25 Pulse Oximetry 97 05/04/19 12:25 Temperature 36.4 C L 05/04/19 12:25 Temperature Source Skin 05/04/19 12:25 Pulse 80 05/04/19 12:25 Respiratory Rate 18 05/04/19 12:25 Respiratory Effort 05/04/19 12:31 Blood Pressure 155/96 H 05/04/19 12:25 Pulse Oximetry 97 05/04/19 12:25 Oxygen Delivery Method Room Air 05/04/19 12:25 Oxygen Flow Rate 0 05/04/19 12:25 Pain Level 2 05/04/19 12:25
== END 2019-05-04 14:05 | disposition home or self-care (01) ==
LOC: ER 14:17
PROVIDERS: Emergency Provider Student in an Organized Health Care Education/Training Program; PCP Internal Medicine
DX: K59.00 Constipation, unspecified (principal)
CPT/HCPCS: 99283; 99282

== ENCOUNTER 2019-05-06 12:29 | Outpatient (REF) | payer MEDICAID, SELFPAY ==
[2019-05-06 18:39] LABS: Abs Immature Grans 0.01 k/cumm (0.0-0.09); Absolute Basophil Count 0.01 k/cumm (0.0-0.2); Absolute Eosinophil Count 0.21 k/cumm (0.0-0.7); Absolute Lymphocyte Count 2.17 k/cumm (1.2-3.4); Absolute Monocyte Count 0.57 k/cumm (0.11-0.7); Absolute Neutrophil Count 4.58 k/cumm (1.2-6.7); Basophils % 0.1; Eosinophils % 2.8; HCT 40.1 % (40.0-50.0); HGB 13.7 g/dL (13.5-17.5); Immature Grans % 0.1; Lymphocytes % 28.7; Mean Corp. HGB Concentration 34.2 g/dL (32.0-36.0); Mean Corpuscular Hemoglobin 31.6 pg (27.0-33.0); Mean Corpuscular Volume 92.6 fL (80-95); Mean Platelet Volume 9.6 fL (8.0-11.0); Monocytes % 7.5; Neutrophils % 60.8; Platelet Count 219 x1000/uL (130-400); RBC 4.33 m/cumm (4.50-6.00); RBC Distribution Width 12.8 % (11.8-14.1); White Blood Cell Count 7.55 k/cumm (4.4-10.8)
== END 2019-05-06 12:49 ==
LOC: NCHCN 12:29
PROVIDERS: PCP Internal Medicine; Visit Provider Internal Medicine
DX: Z79.899 Other long term (current) drug therapy (principal)
CPT/HCPCS: 85025

== ENCOUNTER 2019-06-04 11:05 | Outpatient (REF) | payer MEDICAID, SELFPAY ==
[2019-06-04 20:30] LABS: Abs Immature Grans 0.02 k/cumm (0.0-0.09); Absolute Basophil Count 0.02 k/cumm (0.0-0.2); Absolute Lymphocyte Count 2.07 k/cumm (1.2-3.4); Absolute Monocyte Count 0.48 k/cumm (0.11-0.7); Absolute Neutrophil Count 3.29 k/cumm (1.2-6.7); Basophils % 0.3; Eosinophils % 4.9; HGB 13.6 g/dL (13.5-17.5); Immature Grans % 0.3; Lymphocytes % 33.5; Mean Corpuscular Hemoglobin 32.2 pg (27.0-33.0); Mean Corpuscular Volume 94.8 fL (80-95); Mean Platelet Volume 9.8 fL (8.0-11.0); Monocytes % 7.8; Neutrophils % 53.2; Platelet Count 182 x1000/uL (130-400); RBC 4.22 m/cumm (4.50-6.00); RBC Distribution Width 13.9 % (11.8-14.1); White Blood Cell Count 6.18 k/cumm (4.4-10.8)
== END 2019-06-04 11:25 ==
LOC: NCHCN 11:05
PROVIDERS: PCP Internal Medicine; Visit Provider Internal Medicine
DX: F20.9 Schizophrenia, unspecified (principal); Z79.899 Other long term (current) drug therapy
CPT/HCPCS: 85025

== ENCOUNTER 2019-07-01 11:31 | Outpatient (REF) | payer MEDICAID, SELFPAY ==
[2019-07-01 20:16] LABS: Abs Immature Grans 0.04 k/cumm (0.0-0.09); Basophils % 0.1; Eosinophils % 1.9; HCT 42.4 % (40.0-50.0); HGB 14.2 g/dL (13.5-17.5); Immature Grans % 0.3; Lymphocytes % 16.1; Mean Corp. HGB Concentration 33.5 g/dL (32.0-36.0); Mean Corpuscular Hemoglobin 31.6 pg (27.0-33.0); Mean Corpuscular Volume 94.4 fL (80-95); Mean Platelet Volume 9.9 fL (8.0-11.0); Monocytes % 6.9; Neutrophils % 74.7; Platelet Count 223 x1000/uL (130-400); RBC 4.49 m/cumm (4.50-6.00); RBC Distribution Width 13.4 % (11.8-14.1); White Blood Cell Count 14.39 k/cumm (4.4-10.8)
[2019-07-01 20:28] LABS: Absolute Basophil Count 0.01 k/cumm (0.0-0.2); Absolute Eosinophil Count 0.27 k/cumm (0.0-0.7); Absolute Lymphocyte Count 2.32 k/cumm (1.2-3.4); Absolute Monocyte Count 0.99 k/cumm (0.11-0.7); Absolute Neutrophil Count 10.75 k/cumm (1.2-6.7)
== END 2019-07-01 11:51 ==
LOC: NCHCN 11:31
PROVIDERS: PCP Internal Medicine; Visit Provider Internal Medicine
DX: F20.9 Schizophrenia, unspecified (principal); Z79.899 Other long term (current) drug therapy
CPT/HCPCS: 85025

== ENCOUNTER 2019-07-29 11:00 | Outpatient (REF) | payer MEDICAID, SELFPAY ==
[2019-07-29 20:53] LABS: Abs Immature Grans 0.01 k/cumm (0.0-0.09); Absolute Basophil Count 0.01 k/cumm (0.0-0.2); Absolute Eosinophil Count 0.36 k/cumm (0.0-0.7); Absolute Lymphocyte Count 2.58 k/cumm (1.2-3.4); Absolute Monocyte Count 0.58 k/cumm (0.11-0.7); Absolute Neutrophil Count 3.55 k/cumm (1.2-6.7); Basophils % 0.1; Eosinophils % 5.1; HCT 43.2 % (40.0-50.0); HGB 14.6 g/dL (13.5-17.5); Immature Grans % 0.1; Lymphocytes % 36.4; Mean Corp. HGB Concentration 33.8 g/dL (32.0-36.0); Mean Corpuscular Hemoglobin 31.5 pg (27.0-33.0); Mean Corpuscular Volume 93.3 fL (80-95); Mean Platelet Volume 9.9 fL (8.0-11.0); Monocytes % 8.2; Neutrophils % 50.1; Platelet Count 201 x1000/uL (130-400); RBC 4.63 m/cumm (4.50-6.00); White Blood Cell Count 7.09 k/cumm (4.4-10.8)
== END 2019-07-29 11:20 ==
LOC: NCHCN 11:00
PROVIDERS: PCP Internal Medicine; Visit Provider Internal Medicine
DX: Z79.899 Other long term (current) drug therapy (principal); Z51.81 Encounter for therapeutic drug level monitoring
CPT/HCPCS: 85025

== ENCOUNTER 2019-08-26 11:36 | Outpatient (REF) | payer MEDICAID, SELFPAY ==
[2019-08-26 19:12] LABS: Abs Immature Grans 0.02 k/cumm (0.0-0.09); Absolute Basophil Count 0.02 k/cumm (0.0-0.2); Absolute Eosinophil Count 0.33 k/cumm (0.0-0.7); Absolute Lymphocyte Count 2.47 k/cumm (1.2-3.4); Absolute Monocyte Count 0.66 k/cumm (0.11-0.7); Basophils % 0.2; Eosinophils % 3.5; HCT 41.2 % (40.0-50.0); Immature Grans % 0.2; Mean Corpuscular Hemoglobin 31.5 pg (27.0-33.0); Mean Corpuscular Volume 92.6 fL (80-95); Mean Platelet Volume 9.2 fL (8.0-11.0); Monocytes % 6.9; Neutrophils % 63.2; Platelet Count 192 x1000/uL (130-400); RBC 4.45 m/cumm (4.50-6.00); RBC Distribution Width 13.2 % (11.8-14.1)
== END 2019-08-26 11:56 ==
LOC: NCHCN 11:36
PROVIDERS: PCP Internal Medicine; Visit Provider Internal Medicine
DX: Z51.81 Encounter for therapeutic drug level monitoring (principal); Z79.899 Other long term (current) drug therapy
CPT/HCPCS: 85025

== ENCOUNTER 2019-09-23 11:43 | Outpatient (REF) | payer MEDICAID, SELFPAY ==
[2019-09-23 19:44] LABS: Abs Immature Grans 0.01 k/cumm (0.0-0.09); Absolute Basophil Count 0.02 k/cumm (0.0-0.2); Absolute Eosinophil Count 0.32 k/cumm (0.0-0.7); Absolute Lymphocyte Count 2.22 k/cumm (1.2-3.4); Absolute Monocyte Count 0.63 k/cumm (0.11-0.7); Absolute Neutrophil Count 4.73 k/cumm (1.2-6.7); Basophils % 0.3; HCT 40.4 % (40.0-50.0); HGB 13.7 g/dL (13.5-17.5); Immature Grans % 0.1 %; Mean Corp. HGB Concentration 33.9 g/dL (32.0-36.0); Mean Corpuscular Hemoglobin 31.4 pg (27.0-33.0); Mean Corpuscular Volume 92.7 fL (80-95); Mean Platelet Volume 9.9 fL (8.0-11.0); Monocytes % 7.9; Neutrophils % 59.7; Platelet Count 191 x1000/uL (130-400); RBC 4.36 m/cumm (4.50-6.00); RBC Distribution Width 13.3 % (11.8-14.1); White Blood Cell Count 7.93 k/cumm (4.4-10.8)
== END 2019-09-23 12:03 ==
LOC: NCHCN 11:43
PROVIDERS: PCP Internal Medicine; Visit Provider Internal Medicine
DX: Z51.81 Encounter for therapeutic drug level monitoring (principal); Z79.899 Other long term (current) drug therapy
CPT/HCPCS: 85025

== ENCOUNTER 2019-10-09 11:29 | Emergency (ER) | payer MEDICAID, SELFPAY ==
--- NOTE | 2019-10-09 | DI.RAD_ITS ---
EXAM: XR HUMERUS LT CLINICAL HISTORY: known fracture TECHNIQUE: COMPARISON: No exams were available for comparison FINDINGS: Five views were obtained. There is a comminuted moderately displaced fracture of the proximal humeru s. No additional humeral fracture seen. No evidence of a glenohumeral dislocation. IMPRESSION:
[2019-10-09 11:32] VITALS: BP 105/87; PULSE 75; RESP 18; TEMP 37.1; O2SAT 99
--- NOTE | 2019-10-09 11:55 | ED.GENADUL_ITS ---
Discharge Plan Disposition Patient Disposition: HOME Condition: Good Discharge Details Chief Complaint: Orthopedic Clinical Impression: Fracture of humeral head Primary Care Provider: Vaibhav Brock ED Provider: Jailene Velasquez Pacolet Meds and New Rx's Prescriptions: Continued Myrbetriq 25 MG tablet extended release 24 hr 25 mg PO DAILY Qty: 30 RF: 12 tamsulosin [Flomax] 0.4 mg capsule 0.4 mg PO QAM Qty: 90 RF: 4 clonazepam 0.5 mg Tablet 0.5 - 1 mg PO BID RF: 0 carbamazepine 200 mg Tablet 200 mg PO BID RF: 0 ondansetron 4 mg tablet,disintegrating 4 mg PO TID PRN (Reason: nausea and vomiting) Qty: 10 RF: 0 amantadine HCl 100 mg Tablet 100 mg PO BID RF: 0 diphenhydramine HCl [Benadryl] 25 mg Capsule 25 - 50 mg PO Q6H PRNRF: 0 ibuprofen 400 mg Tablet 400 mg PO TID PRNRF: 0 loperamide 2 mg Tablet 2 - 4 mg PO PRN PRNRF: 0 magnesium hydroxide [Milk of Magnesia] 400 mg/5 mL Suspension 5 - 15 ml PO PRN PRNRF: 0 Cerovite Senior Tablet 1 tab PO QAM RF: 0 cholecalciferol (vitamin D3) [Vitamin D3] 400 unit Tablet 400 unit PO QAM RF: 0 docusate sodium [Dulcolax Stool Softener (dss)] 100 mg capsule 100 mg PO DAILY Qty: 30 RF: 2 acetaminophen 325 MG tablet 650 mg PO PRN PRN (Reason: Discomfort) RF: 0 polyethylene glycol 3350 17 GM powder in packet 17 gm PO DAILY RF: 0 clozapine [Clozaril] 100 MG tablet 300 - 500 mg PO BID RF: 0 clonazepam 0.5 MG tablet 0.5 mg PO BID RF: 0 propranolol 60 MG tablet 60 mg PO BID RF: 0 simvastatin 40 MG tablet 60 mg PO HS RF: 0 pantoprazole 40 MG tablet,delayed release (DR/EC) 40 mg PO DAILY RF: 0 buspirone 10 MG tablet 20 mg PO QAM RF: 0 benztropine 2 MG tablet 2 mg PO BID RF: 0 risperidone 4 MG tablet,disintegrating 4 mg PO HS RF: 0 No Action Mylanta Maximum Strength 400-400-40 mg/5 mL Suspension 15 - 30 ml PO QID PRNRF: 0 Discharge Instructions Instructions: Proximal Humerus Fracture (ED) Additional Instructions: Encourage rest, ice. You may use the Tylenol and/or ibuprofen as needed for discomfort. If this is unsuccessful alleviating your discomfort, please augment this with the narcotics as prescribed by orthopedics. Continue with sling to help with immobilization. You have an appointment with orthopedics October 14 at 2:45 PM. If you develop increased pain, fever/chills, altered sensation or other new/worsening symptom please seek care urgently once again. Referrals: Chase Sun MD [ [facility]FF PHYSICIAN] - 10/14/19 2:45 pm Vaibhav Brock [Primary Care Provider] - Discharge Data Discharge Date/Time-TO BE ENTERED AT DEPARTURE: 10/09/19 14:30 Medical Decision Making Patient is a 54-year-old [id number] male presenting with chief complaint of left humeral pain. We made aware of the patient coming in prior to his arrival. Patient was seen at [facility] 8 days ago at which time he was diagnosed with a comminuted proximal left humeral fracture. Surgical intervention was advised at that point but was delayed secondary to postoperative planning management issues. Per caregivers history, patient has had a history of aggression but it has been several years since his last outburst. Sounds like this is what caused the delay in the patient getting the help that was recommended. He denies any other injury since that time. Denies any numbness or tingling. No previous surgery or injury to this arm prior to recent fracture. No recent fevers or chills. Has been having difficulty sleeping secondary to the discomfort. Has been using hydrocodone to help with his pain. On exam, patient is pleasant and appropriate. He does not appear to be in any acute discomfort or distress. He does have discomfort when trying to move the left upper extremity. 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 He has notable ecchymosis across the left upper extremity extending onto the left lateral chest wall. Unable to see images from [facility]. Plan to repeat x-rays of the left humerus. Patient does have notable ecchymosis down the left upper extremity and across the left anterior chest wall. He is neurologically intact, good range of motion of the elbow. Would not attempt to range the shoulder with known fractured discomfort. FINDINGS: Five views were obtained. There is a comminuted moderately displaced fracture of the proximal humerus. No additional humeral fracture seen. No evidence of a glenohumeral dislocation. IMPRESSION: Consulted with orthopedics regarding the patient's fracture. He advised that he was able to compare this to the previous CT that was completed. He feels like the alignment is improved and that this could heal with Nonsurgical option. He did not recommend any acute intervention. He recommended follow-up with orthopedics next week. As the patient did not like the fit of his previous sling, he was refitted with one today and feels that this is much improved. Patient has an appointment with orthopedics next Sunday. We discussed supportive measures to help with his discomfort. In particular, we did discuss positioning while asleep which should greatly help with his pain. Although anjum velasco has been taking his hydrocodone, he has not been using his as needed Tylenol or ibuprofen which I encouraged they begin using primarily and then augment this further with the narcotics as needed. They are given return precautions. All of their questions and concerns were addressed and they are in agreement this plan. HPI General Mode of arrival: ambulatory . Date/Time Provider Initiated Documentation: 10/09/19 11:47 . Limitations to Documentation: no limitations . Information obtained by: patient, family (accompanied by care givers) and RN notes reviewed . History of Present Illness 54 year old M presents to the emergency department with the chief complaint of left humeral fracture, described as severe, with intensity rated at 10. Quality is described as stabbing, and is localized to the left and upper extremity. Patient extremity. Patient started experiencing this day(s) (8) and it has been constant. Immobilization improves symptom(s), Movement worsens symptoms . Patient notes no other symptoms.. Patient did receive the following treatments prior to arrival, other (vicodin) Related Data Home Medications Medication Instructions Recorded Confirmed acetaminophen 650 mg PO PRN PRN 01/19/17 10/09/19 benztropine 2 mg PO BID 01/19/17 03/20/19 buspirone 20 mg PO QAM 01/19/17 10/09/19 clonazepam 0.5 mg PO BID 01/19/17 10/09/19 clozapine [Clozaril] 300 - 500 mg PO BID 01/19/17 10/09/19 pantoprazole 40 mg PO DAILY 01/19/17 10/09/19 polyethylene glycol 3350 17 gm PO DAILY 01/19/17 10/09/19 propranolol 60 mg PO BID 01/19/17 10/09/19 risperidone 4 mg PO HS 01/19/17 10/09/19 simvastatin 60 mg PO HS 01/19/17 10/09/19 Myrbetriq 25 mg PO DAILY #30 tab-cap 02/15/18 10/09/19 tamsulosin 0.4 mg capsule 0.4 mg PO QAM #90 tab-cap 07/09/18 10/09/19 carbamazepine 200 mg PO BID 03/20/19 10/09/19 clonazepam 0.5 - 1 mg PO BID 03/20/19 10/09/19 ondansetron 4 mg PO TID PRN #10 tab 03/20/19 10/09/19 Cerovite Senior 1 tab PO QAM 05/04/19 10/09/19 amantadine HCl 100 mg PO BID 05/04/19 10/09/19 cholecalciferol (vitamin D3) 400 unit PO QAM 05/04/19 10/09/19 [Vitamin D3] diphenhydramine HCl [Benadryl] 25 - 50 mg PO Q6H PRN 05/04/19 10/09/19 docusate sodium [Dulcolax Stool 100 mg PO DAILY #30 cap 05/04/19 10/09/19 Softener (dss)] ibuprofen 400 mg PO TID PRN 05/04/19 10/09/19 loperamide 2 - 4 mg PO PRN PRN 05/04/19 10/09/19 magnesium hydroxide [Milk of 5 - 15 ml PO PRN PRN 05/04/19 10/09/19 Magnesia] alum-mag hydroxide-simeth [Mylanta 15 - 30 ml PO QID PRN 10/09/19 10/09/19 Maximum Strength] Previous Rx's Medication Instructions Recorded Myrbetriq 25 mg PO DAILY #30 tab-cap 02/15/18 tamsulosin 0.4 mg capsule 0.4 mg PO QAM #90 tab-cap 07/09/18 ondansetron 4 mg PO TID PRN #10 tab 03/20/19 docusate sodium [Dulcolax Stool 100 mg PO DAILY #30 cap 05/04/19 Softener (dss)] Allergies Allergy/AdvReac Type Severity Reaction Status Date / Time No Known Allergies Allergy Unverified 10/09/19 11:41 General Stated Complaint: Orthopedic MILENA: 3 Review of Systems Constitutional Constitutional: Reports as per HPI, Denies chills, Denies fever(s), Denies headache(s) and Denies weakness ENT Ears, Nose, Mouth, and Throat: Denies headache(s) Cardiovascular Cardiovascular: Reports as per HPI Respiratory Respiratory: Reports as per HPI and Denies cough Musculoskeletal Musculoskeletal: Reports as per HPI and Denies tingling Integumentary/Breasts Skin/Breast: Reports as per HPI, Denies rash and Denies wounds Neurologic Neurologic: Reports as per HPI, Denies headache(s), Denies tingling, Denies paresthesias and Denies weakness [facility] Medical History Lower urinary tract symptoms (LUTS) (Acute) Paranoid schizophrenia (Acute) Social History Smoking/Tobacco Use Status: Current every day Tobacco Type: cigarettes Alcohol Intake: never Drug use: Never Substance use type: does not use Do you feel safe at home: Yes Do you feel safe in your relationship?: Yes Exam Const General: cooperative, healthy appearing, comfortable, no acute distress, well developed and well groomed Nutritional Appearance: average body habitus and well nourished Orientation: alert and awake Chest Chest: abnormal inspection of the chest (Yellowed ecchymosis noted on the left lateral aspect of his chest wall), normal palpation of entire chest wall, no localized rib tenderness, no masses and no tenderness Resp Effort & Inspection: normal respiratory effort, able to speak in complete sentences and no respiratory distress Auscultation: clear to auscultation bilaterally Cardio Rate: regular rate Rhythm: regular rhythm Heart Sounds: S1 normal and S2 normal Skin General skin exam: ecchymosis (Hydrated ecchymosis extending from left upper extremity across chest and to) Neuro General: alert and awake Cognition: normal cognition Speech: speech normal Gait: normal gait Motor: muscle tone normal throughout Sensory Exam: no sensory deficits noted Extrem Left upper extremity: normal capillary refill, no joint enlargement, shoulder/upper arm Details: tenderness, axillary nerve sensory function normal and ecchymosis; abnormal to inspection, no swelling, ROM limited, no abrasions, no crepitus, no deformity and no unsual warmth, elbow/forearm Details: normal to inspection and normal ROM; no tenderness and no swelling, wrist Details: normal to inspection and hand Details: normal to inspection, normal capillary refill, neuromotor exam normal and neurosensory exam normal; abnormal to inspection (Ecchymosis is diffuse, circumferential) and ROM limited (Did not assess range of motion of the patient's left shoulder) Psych Appearance: grossly normal and well kempt Mental Status: mental status grossly normal Speech and Movement: speech and movement normal Course Vital Signs Vital signs: Vital Signs Temperature 37.1 C 10/09/19 11:32 Pulse 75 10/09/19 11:32 Respiratory Rate 18 10/09/19 11:32 Blood Pressure 105/87 10/09/19 11:32 Pulse Oximetry 99 10/09/19 11:32 Temperature 37.1 C 10/09/19 11:32 Temperature Source Skin 10/09/19 11:32 Pulse 75 10/09/19 11:32 Respiratory Rate 18 10/09/19 11:32 Respiratory Effort Non-Labored 10/09/19 11:45 Blood Pressure 105/87 10/09/19 11:32 Blood Pressure Position Sitting 10/09/19 11:32 Pulse Oximetry 99 10/09/19 11:32 Oxygen Delivery Method Room Air 10/09/19 11:32 Oxygen Flow Rate 0 10/09/19 11:32 Pain Level 10 10/09/19 11:47
--- NOTE | 2019-10-09 13:59 | NUR.NOTE ---
Nursing Note: JENNIFER CALLED FOR APPT TO SEE HIM ON AT [id number]
--- NOTE | 2019-10-09 14:01 | NUR.NOTE ---
Nursing Note: order food for patient, [id number]
== END 2019-10-09 14:30 | disposition home or self-care (01) ==
PROVIDERS: Emergency Provider Physician Assistant; PCP Internal Medicine
DX: S42.292A Other displaced fracture of upper end of left humerus, initial encounter for closed fracture (principal); W19.XXXA Unspecified fall, initial encounter
CPT/HCPCS: 99283; 73060; L3650

== ENCOUNTER 2019-10-14 15:20 | Outpatient (CLI) | payer MEDICAID, SELFPAY ==
--- NOTE | 2019-10-14 15:40 | DI.RAD_ITS ---
EXAM: XR SHOULDER LT COMPLETE 2+V INDICATION: Pain. COMPARISON: XR SHOULDER MIN 2V LT from 10/01/2019 TECHNIQUE: 2D digital imaging was performed. FINDINGS: There is again seen a comminuted fracture of the proximal left humerus. Two small fracture fragments show mild displacement but overall the alignment of the fracture is stable. No new fractures are id entified. There are degenerative changes of the acromioclavicular joint. The soft tissues are unrem arkable.
--- NOTE | 2019-10-14 15:52 | DI.RAD_ITS ---
EXAM: XR CHEST 1V IN DI DEPT CLINICAL HISTORY: check lungs. TECHNIQUE: 2D digital imaging was performed. COMPARISON: No exams were available for comparison FINDINGS: LUNGS: Clear. No pleural abnormality seen. HEART: Normal. MEDIASTINUM: Normal. OTHER FINDINGS: None. IMPRESSION: No acute pulmonary findings.
== END 2019-10-14 15:40 ==
PROVIDERS: PCP Internal Medicine; Visit Provider Student in an Organized Health Care Education/Training Program
DX: M25.512 Pain in left shoulder (principal); S42.292A Other displaced fracture of upper end of left humerus, initial encounter for closed fracture; Z13.83 Encounter for screening for respiratory disorder NEC
CPT/HCPCS: 71045; 73030

== ENCOUNTER 2019-10-16 09:20 | Day surgery (SDC) | payer MEDICAID, SELFPAY ==
[2019-10-16] VITALS (7 sets, daily range): BP systolic 100–118; BP diastolic 56–80; PULSE 68–75; RESP 12–18; TEMP 36.1–36.6; O2SAT 96–99
[2019-10-16] MEDS: Lactated Ringers 1,000 ML 100 ML IV ×3 (10:19→15:07)
--- NOTE | 2019-10-16 10:39 | W.PM.OP ---
Date of service: 10/16/19 Time of Service: 16:11 Operative Note Operative Note DATE OF PROCEDURE: 10/16/19 PRE-OP DIAGNOSIS: Left complex 4 part proximal humerus fracture POST-OP DIAGNOSIS: other 1. Left complex four-part proximal humerus fracture 2. Left long head of the biceps tendon incarceration fracture site PROCEDURE: 1. Left proximal humerus ORIF 2. Open biceps tenodesis SURGEON: Chase Sun NAIL KEGGER: mAalia Revelse ANESTHESIA: GETA and regional ESTIMATED BLOOD LOSS: 150 COMPLICATIONS: None Patient was transported to: PACU Patient's condition: stable Implants: 3.5 mm LCP Proximal Humerus Plate Indications: Please see complete medical record for details. Procedure Description: The patient was taken to the operating room and transferred to the operating room table. Anesthesia was induced. All bony prominences were well-padded. Preoperative antibiotics were administered. 1 g of TXA was administered. The left shoulder was prepped and draped in the usual sterile fashion. The correct patient, procedure, and side of the procedure were all verified prior to incision. The standard deltopectoral approach was used to obtain access to the proximal humerus fracture. Care was taken to mobilize and protect the cephalic vein medially. Hemorrhagic bursa was removed. Fracture fragments were identified. The anterior, superior, and posterior rotator cuff was tagged using #2 FiberWire at the tendon bone junction for later mobilization repair. Care was taken to avoid dissection medial to the humeral head and neck to preserve blood flow as best possible. The biceps tendon was identified incarcerated between the humeral head lesser tuberosity and shaft fracture and components with the distal tendon still present in the groove. A biceps tenodesis was performed in situ to the superior border of the pectoralis major tendon using #2 FiberWire in a [id number] fashion twice. The long head of the biceps remnant was was freed up from the fracture fragments and used to identify the rotator interval before amputating it from the superior labrum. Humeral head, greater tuberosity, and humeral shaft fracture fragments were carefully mobilized callus was removed, and provisionally reduced and fixated. An anatomic precontoured proximal humerus locking plate was placed appropriately lateral to the bicipital groove and distal to superior cuff insertion. This plate was provisionally held in place using K wires and a cortex shaft screw placed in the oblong hole to allow for adjustments. The reduction and plate placement were confirmed and optimized on orthogonal external rotation and internal rotation AP fluoroscopy. The most superior locking screws were then filled using an osteoporotic bone technique of drilling only the lateral cortex and then using the depth gauge as a sound for screw measurement taking care not to penetrate the articular surface. The distal most locking screws in the shaft were then placed in a bicortical fashion. The remainder of the proximal locking screw options were filled to obtain the most spread and purchase in the humeral head. Orthogonal AP external rotation and internal rotation fluoroscopy as well as modified axial views confirmed appropriate fracture site reduction and hardware placement. The #2 FiberWire previously placed in the rotator cuff was used to augment the repair and secure the anterior, superior, and posterior rotator cuff tendon and and bone fracture fragments to the suture holes in the plate. The shoulder was mobilized through a moderate arc of motion and fixation was found to be stable. The wound was copiously irrigated with normal saline. 1 g of vancomycin powder was distributed about the wound. The interval was reapproximated using 0 Vicryl in an interrupted fashion taking care to bury the cephalic vein atraumatically. Subcutaneous tissues were copiously irrigated with normal saline. Subcutaneous tissue was closed in 2-0 Monocryl in buried interrupted fashion. The skin was closed with 3-0 Monocryl in a buried running subcuticular fashion. Skin glue was applied over the incision followed by a silver impregnated bandage. Sling was applied. The patient woke from anesthesia without complication was taken to recovery room in stable condition.
[2019-10-16] MEDS: ceFAZolin 2 GM/50 ML BAG IVPB ×2 (11:25→14:25)
[2019-10-16] MEDS: Tranexamic Acid 1,000 MG/10 ML VIAL 1000 MG (11:47)
--- NOTE | 2019-10-16 12:30 | DI.RAD_ITS ---
EXAM: XR HUMERUS LT CLINICAL HISTORY: Closed fracture of left proximal humerus TECHNIQUE: C-arm fluoroscopy was utilized by Dr. Sun during open reduction and internal fixation o f fracture of the proximal humerus. COMPARISON: No exams were available for comparison FINDINGS: Hard copy shows plate and screw fixation in place transfixing the fracture fragments. Fluoro time: 142.3 seconds. IMPRESSION:
--- NOTE | 2019-10-16 16:11 | W.PM.DSUDISC ---
Discharge Plan Disposition Patient Disposition: OTHER Condition: Stable Discharge Details Reason For Visit: (L) PROXIMAL HUMERUS FX Attending Provider: Chase Sun Primary Care Provider: Vaibhav Brock Home Meds and New Rx's Prescriptions: New naproxen 250 mg tablet 250 - 500 mg PO BID PRN (Reason: pain, moderate) Qty: 60 RF: 0 aspirin 81 mg tablet,delayed release (DR/EC) 81 mg PO DAILY 14 Days Qty: 14 RF: 0 oxycodone 5 mg tablet 5 - 10 mg PO Q4H PRN (Reason: moderate to severe pain) Qty: 22 RF: 0 Continued hydrocodone-acetaminophen 7.5-500 mg tablet PO .Q4 PRNRF: 0 Myrbetriq 25 MG tablet extended release 24 hr 25 mg PO DAILY Qty: 30 RF: 12 tamsulosin [Flomax] 0.4 mg capsule 0.4 mg PO QAM Qty: 90 RF: 4 carbamazepine 200 mg Tablet 200 mg PO BID RF: 0 ondansetron 4 mg tablet,disintegrating 4 mg PO TID PRN (Reason: nausea and vomiting) Qty: 10 RF: 0 amantadine HCl 100 mg Tablet 100 mg PO BID RF: 0 diphenhydramine HCl [Benadryl] 25 mg Capsule 25 - 50 mg PO Q6H PRNRF: 0 ibuprofen 400 mg Tablet 400 mg PO TID PRNRF: 0 loperamide 2 mg Tablet 2 - 4 mg PO PRN PRNRF: 0 magnesium hydroxide [Milk of Magnesia] 400 mg/5 mL Suspension 5 - 15 ml PO PRN PRNRF: 0 Cerovite Senior Tablet 1 tab PO QAM RF: 0 cholecalciferol (vitamin D3) [Vitamin D3] 400 unit Tablet 400 unit PO QAM RF: 0 docusate sodium [Dulcolax Stool Softener (dss)] 100 mg capsule 100 mg PO DAILY Qty: 30 RF: 2 Mylanta Maximum Strength 400-400-40 mg/5 mL Suspension 15 - 30 ml PO QID PRNRF: 0 propranolol [Inderal LA] 60 mg Capsule,Extended Release 24 Hr 60 mg PO BID RF: 0 amantadine HCl 100 mg Capsule 100 mg PO BID RF: 0 acetaminophen 325 MG tablet 650 mg PO PRN PRN (Reason: Discomfort) RF: 0 polyethylene glycol 3350 17 GM powder in packet 17 gm PO DAILY RF: 0 clozapine [Clozaril] 100 MG tablet 300 - 500 mg PO BID RF: 0 clonazepam 0.5 MG tablet 0.5 mg PO BID RF: 0 propranolol 60 MG tablet 60 mg PO BID RF: 0 simvastatin 40 MG tablet 60 mg PO HS RF: 0 pantoprazole 40 MG tablet,delayed release (DR/EC) 40 mg PO DAILY RF: 0 buspirone 10 MG tablet 20 mg PO QAM RF: 0 benztropine 2 MG tablet 2 mg PO BID RF: 0 risperidone 4 MG tablet,disintegrating 4 mg PO HS RF: 0 Discharge Instructions Additional Instructions: Surgery: Left proximal humerus open reduction internal fixation and biceps tenodesis Activity: Non-weightbearing in sling for comfort. Recommend removing sling while inside and using sling outside. While inside, may rest forearm on a pillow or at side. May use left arm lightly for activities of daily living. No lifting, reaching away from body, or overhead. Encourage daily range of motion to the elbow, wrist, and hand. A physical therapy prescription will be provided separately today. Prescriptions: Aspirin 81 mg take 1 daily to prevent a blood clot for 2 weeks Naproxen 250 mg take 1-2 every 12 hours with a meal as needed for moderate pain Oxycodone 5 mg take 1-2 every 4-6 hours as needed for severe pain You may use [id number] Tylenol (acetaminophen) as needed for mild pain. These pain medications may be taken all at once or in different combinations as needed. Also, recommend Colace (docusate) as a stool softener as surgery and pain medicine cause constipation. Dressings: Leave splint and dressing in place until follow-up. Keep clean and dry at all times. Follow-up: 10-[address] Sun Please call the office during business hours with any questions or concerns. Let us know right away if you develop any redness, drainage, fevers, chest pain, or trouble breathing. Do not drink alcohol or drive for at least 24 hours after anesthesia. Stand Alone Forms: Anes.Nerve Block Instructions, DSU Post op Instructions, Elsa Jauregui (DSU) Referrals: Chase Sun MD [ [facility]YSIC[facility]] - Discharge Orders Discharge Orders: Discharge Order (Routine); Ordered 10/16/19 Ordered By: Chase Sun DS: Diagnosis Discharge Diagnosis (1) Closed fracture of left proximal humerus: Status: Acute (2) Schizophrenia: Status: Chronic
== END 2019-10-16 17:09 | disposition other institution (70) ==
PROVIDERS: PCP Internal Medicine; Visit Provider Student in an Organized Health Care Education/Training Program
PROC: (CPT 24420; principal; 2019-10-16 11:00)
PROC: (CPT 23430; 2019-10-16 11:00)
PROC: (CPT 23615; 2019-10-16 11:00)
DX: S42.242A 4-part fracture of surgical neck of left humerus, initial encounter for closed fracture (principal); S46.192A Other injury of muscle, fascia and tendon of long head of biceps, left arm, initial encounter; W00.0XXA Fall on same level due to ice and snow, initial encounter; F17.210 Nicotine dependence, cigarettes, uncomplicated; F20.0 Paranoid schizophrenia
CPT/HCPCS: 23615; 23430; C1713; 76942; 73060; J0171; J0690; J1100; J1720; J2001; J2250; J2370; J2405

== ENCOUNTER 2019-10-21 14:39 | Outpatient (REF) | payer MEDICAID, SELFPAY ==
[2019-10-21 19:39] LABS: Abs Immature Grans 0.03 k/cumm (0.0-0.09); HGB 10.5 g/dL (13.5-17.5); Mean Corp. HGB Concentration 32.8 g/dL (32.0-36.0); Mean Corpuscular Hemoglobin 30.9 pg (27.0-33.0); Mean Corpuscular Volume 94.1 fL (80-95); Mean Platelet Volume 9.2 fL (8.0-11.0); Platelet Count 378 x1000/uL (130-400); RBC Distribution Width 13.4 % (11.8-14.1); White Blood Cell Count 7.35 k/cumm (4.4-10.8)
[2019-10-21 20:42] LABS: Absolute Eosinophil Count 0.44 k/cumm (0.0-0.7); Absolute Monocyte Count 0.51 k/cumm (0.11-0.7); Absolute Neutrophil Count 5.29 k/cumm (1.2-6.7); Atypical Lymphocytes % 1; Diff Comment Manual Differential; RBC Morphology Normal
== END 2019-10-21 14:59 ==
LOC: NCHCN 14:39
PROVIDERS: PCP Internal Medicine; Visit Provider Internal Medicine
DX: Z51.81 Encounter for therapeutic drug level monitoring (principal)
CPT/HCPCS: 85025

== ENCOUNTER 2019-10-28 16:11 | Outpatient (CLI) | payer MEDICAID, SELFPAY ==
--- NOTE | 2019-10-28 11:45 | DI.RAD_ITS ---
EXAM: XR SHOULDER LT COMPLETE 2+V INDICATION: FOLLOW UP. COMPARISON: XR HUMERUS LT from 10/16/2019 TECHNIQUE: 2D digital imaging was performed. FINDINGS: There are again seen side plates and screws transfixing the comminuted proximal left humeral fracture . There has been no change in alignment of the orthopedic hardware or fracture components.
== END 2019-10-28 16:31 ==
PROVIDERS: PCP Internal Medicine; Visit Provider Student in an Organized Health Care Education/Training Program
DX: S42.292A Other displaced fracture of upper end of left humerus, initial encounter for closed fracture (principal)
CPT/HCPCS: 73030

== ENCOUNTER 2019-11-18 15:50 | Outpatient (REF) | payer MEDICAID, SELFPAY ==
[2019-11-18 20:13] LABS: Abs Immature Grans 0.02 k/cumm (0.0-0.09); Absolute Basophil Count 0.03 k/cumm (0.0-0.2); Absolute Eosinophil Count 0.21 k/cumm (0.0-0.7); Absolute Lymphocyte Count 1.82 k/cumm (1.2-3.4); Absolute Monocyte Count 0.64 k/cumm (0.11-0.7); Absolute Neutrophil Count 3.51 k/cumm (1.2-6.7); Basophils % 0.5; Eosinophils % 3.4; HCT 37.8 % (40.0-50.0); HGB 12.4 g/dL (13.5-17.5); Immature Grans % 0.3 %; Lymphocytes % 29.2; Mean Corp. HGB Concentration 32.8 g/dL (32.0-36.0); Mean Corpuscular Hemoglobin 31.3 pg (27.0-33.0); Mean Corpuscular Volume 95.5 fL (80-95); Mean Platelet Volume 9.3 fL (8.0-11.0); Monocytes % 10.3; Neutrophils % 56.3; Platelet Count 225 x1000/uL (130-400); RBC 3.96 m/cumm (4.50-6.00); RBC Distribution Width 14.1 % (11.8-14.1); White Blood Cell Count 6.23 k/cumm (4.4-10.8)
== END 2019-11-18 16:10 ==
LOC: NCHCN 15:50
PROVIDERS: PCP Internal Medicine; Visit Provider Internal Medicine
DX: Z51.81 Encounter for therapeutic drug level monitoring (principal)
CPT/HCPCS: 85025

== ENCOUNTER 2019-12-16 11:13 | Outpatient (REF) | payer MEDICAID, SELFPAY ==
[2019-12-16 19:13] LABS: Abs Immature Grans 0.03 k/cumm (0.0-0.09); Absolute Basophil Count 0.01 k/cumm (0.0-0.2); Absolute Lymphocyte Count 1.86 k/cumm (1.2-3.4); Absolute Monocyte Count 0.52 k/cumm (0.11-0.7); Absolute Neutrophil Count 3.45 k/cumm (1.2-6.7); Basophils % 0.2; Eosinophils % 3.3; HCT 40.7 % (40.0-50.0); HGB 13.8 g/dL (13.5-17.5); Immature Grans % 0.5 %; Lymphocytes % 30.6; Mean Corp. HGB Concentration 33.9 g/dL (32.0-36.0); Mean Corpuscular Hemoglobin 31.7 pg (27.0-33.0); Mean Corpuscular Volume 93.3 fL (80-95); Mean Platelet Volume 9.8 fL (8.0-11.0); Monocytes % 8.6; Neutrophils % 56.8; Platelet Count 163 x1000/uL (130-400); RBC 4.36 m/cumm (4.50-6.00); RBC Distribution Width 13.4 % (11.8-14.1); White Blood Cell Count 6.07 k/cumm (4.4-10.8)
== END 2019-12-16 11:33 ==
LOC: NCHCN 11:13
PROVIDERS: PCP Internal Medicine; Visit Provider Internal Medicine
DX: Z51.81 Encounter for therapeutic drug level monitoring (principal)
CPT/HCPCS: 85025

== ENCOUNTER 2020-01-13 11:46 | Outpatient (REF) | payer MEDICAID, SELFPAY ==
[2020-01-13 19:56] LABS: Abs Immature Grans 0.01 k/cumm (0.0-0.09); Absolute Basophil Count 0.02 k/cumm (0.0-0.2); Absolute Eosinophil Count 0.24 k/cumm (0.0-0.7); Absolute Lymphocyte Count 2.27 k/cumm (1.2-3.4); Absolute Monocyte Count 0.56 k/cumm (0.11-0.7); Absolute Neutrophil Count 3.69 k/cumm (1.2-6.7); Basophils % 0.3; Eosinophils % 3.5; HCT 38.2 % (40.0-50.0); Immature Grans % 0.1 %; Lymphocytes % 33.4; Mean Corpuscular Volume 91.2 fL (80-95); Mean Platelet Volume 9.5 fL (8.0-11.0); Monocytes % 8.2; Neutrophils % 54.5; Platelet Count 190 x1000/uL (130-400); RBC 4.19 m/cumm (4.50-6.00); RBC Distribution Width 13.1 % (11.8-14.1); White Blood Cell Count 6.79 k/cumm (4.4-10.8)
== END 2020-01-13 12:06 ==
LOC: NCHCN 11:46
PROVIDERS: PCP Internal Medicine; Visit Provider Internal Medicine
DX: Z79.899 Other long term (current) drug therapy (principal); Z51.81 Encounter for therapeutic drug level monitoring
CPT/HCPCS: 85025

== ENCOUNTER 2020-01-21 13:33 | Outpatient (CLI) | payer MEDICAID, SELFPAY ==
--- NOTE | 2020-01-21 13:15 | DI.RAD_ITS ---
EXAM: XR SHOULDER LT COMPLETE 2+V CLINICAL HISTORY: fracture TECHNIQUE: COMPARISON: CR XR SHOULDER LT COMPLETE 2+V from 10/28/2019 FINDINGS: Two views were obtained and show plate and screw fixation proximal humeral fracture. Alignment appea rs essentially unchanged comparison with previous examination October 28. IMPRESSION:
== END 2020-01-21 13:53 ==
PROVIDERS: PCP Internal Medicine; Visit Provider Physician Assistant Surgical
DX: S42.242D 4-part fracture of surgical neck of left humerus, subsequent encounter for fracture with routine healing (principal)
CPT/HCPCS: 73030

== ENCOUNTER 2020-02-10 14:52 | Outpatient (REF) | payer MEDICAID, SELFPAY ==
[2020-02-10 20:22] LABS: Abs Immature Grans 0.01 k/cumm (0.0-0.09); Absolute Basophil Count 0.01 k/cumm (0.0-0.2); Absolute Eosinophil Count 0.24 k/cumm (0.0-0.7); Absolute Lymphocyte Count 2.17 k/cumm (1.2-3.4); Absolute Monocyte Count 0.61 k/cumm (0.11-0.7); Absolute Neutrophil Count 2.77 k/cumm (1.2-6.7); Basophils % 0.2; Eosinophils % 4.1; HCT 40.4 % (40.0-50.0); HGB 13.5 g/dL (13.5-17.5); Immature Grans % 0.2 %; Lymphocytes % 37.3; Mean Corp. HGB Concentration 33.4 g/dL (32.0-36.0); Mean Corpuscular Hemoglobin 30.8 pg (27.0-33.0); Mean Platelet Volume 9.7 fL (8.0-11.0); Monocytes % 10.5; Neutrophils % 47.7; Platelet Count 190 x1000/uL (130-400); RBC 4.39 m/cumm (4.50-6.00); RBC Distribution Width 13.6 % (11.8-14.1); White Blood Cell Count 5.81 k/cumm (4.4-10.8)
== END 2020-02-10 15:12 ==
LOC: NCHCN 14:52
PROVIDERS: PCP Internal Medicine; Visit Provider Internal Medicine
DX: Z51.81 Encounter for therapeutic drug level monitoring (principal)
CPT/HCPCS: 85025

== ENCOUNTER 2020-02-18 18:09 | Outpatient (CLI) | payer MEDICAID, SELFPAY ==
--- NOTE | 2020-02-18 12:53 | DI.RAD_ITS ---
EXAM: XR SHOULDER LT COMPLETE 2+V CLINICAL HISTORY: fu fracture. TECHNIQUE: 2D digital imaging was performed. COMPARISON: CR XR SHOULDER LT COMPLETE 2+V from 01/21/2020 FINDINGS: BONES: There has been no change in alignment the sideplate and screws transfixing the fracture of the proximal left humerus. Fracture line is still visualized. Orthopedic hardware appears intact. No new fracture or dislocation is seen. No bony destructive lesion is seen. JOINTS: No dislocation present. SOFT TISSUE: Normal. IMPRESSION: Stable proximal left humeral fracture. DATA REPOSITORY: RADIATION DOSE DELIVERED:
== END 2020-02-18 18:29 ==
PROVIDERS: PCP Internal Medicine; Visit Provider Student in an Organized Health Care Education/Training Program
DX: S42.242D 4-part fracture of surgical neck of left humerus, subsequent encounter for fracture with routine healing (principal)
CPT/HCPCS: 73030

== ENCOUNTER 2020-02-23 11:38 | Outpatient (CLI) | payer MEDICAID, SELFPAY ==
--- NOTE | 2020-02-20 15:00 | DI.CT_ITS ---
EXAM: CT UPPER EXTREMITY LT WO CLINICAL HISTORY: Prominent screw, incomplete healing,[employer],S42.292.A TECHNIQUE: Imaging Protocol: Axial computed tomography images with coronal and sagittal reformatted images were created and reviewed. CONTRAST MATERIAL: Noncontrast COMPARISON: CR XR SHOULDER LT COMPLETE 2+V from 10/14/2019 CR XR SHOULDER LT COMPLETE 2+V from 02/18/2020 FINDINGS: Screw and plate in plate fixation is again noted lung the lateral aspect of the humeral head and and proximal humeral shaft. The hardware appears intact. There is some heterotopic ossification seen in the soft in the adjacent cysts soft tissues. A ends verse fracture remains visible at the inferior aspect of the humeral head with some fluid seen extending along the main fracture margin which does n ot show evidence of healing. A joint effusion is seen. There is no asymmetric muscle atrophy. The visualized portions of the left lung appear clear. 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 RADIATION DOSE DELIVERED: 316.58mGy.cm Total DLP DATA REPOSITORY: All CT scans at this facility are submitted to the National Radiology Data Registry (NRDR) Dose Index Registry (DIR) with the [employer] (ACR). RADIATION OPTIMIZATION: All CT scans at this facility use at least one of these dose optimization te chniques: automated exposure control; mA and/or kV adjustment per patient size (includes targeted exa ms where dose is matched to clinical indication); or iterative reconstruction.
== END 2020-02-23 11:58 ==
PROVIDERS: PCP Internal Medicine; Visit Provider Student in an Organized Health Care Education/Training Program
DX: S42.292K Other displaced fracture of upper end of left humerus, subsequent encounter for fracture with nonunion (principal); T84.84XA Pain due to internal orthopedic prosthetic devices, implants and grafts, initial encounter; M25.412 Effusion, left shoulder
CPT/HCPCS: 73200

== ENCOUNTER 2020-02-24 07:58 | Outpatient (CLI) | payer MEDICAID, SELFPAY ==
[2020-02-25 03:45] LABS: COVID-19 RT-PCR UVMMC Result Negative (Negative)
== END 2020-02-24 08:18 ==
PROVIDERS: PCP Internal Medicine; Visit Provider Student in an Organized Health Care Education/Training Program
DX: Z11.59 Encounter for screening for other viral diseases (principal); Z01.818 Encounter for other preprocedural examination
CPT/HCPCS: U0003

== ENCOUNTER 2020-02-27 08:50 | Day surgery (SDC) | payer MEDICAID, SELFPAY ==
[2020-02-27 09:04] VITALS: BP 130/97; PULSE 88; RESP 16; TEMP 35.9; O2SAT 99
[2020-02-27 09:30] LABS: Abs Immature Grans 0.01 k/cumm (0.0-0.09); Absolute Basophil Count 0.01 k/cumm (0.0-0.2); Absolute Eosinophil Count 0.29 k/cumm (0.0-0.7); Absolute Lymphocyte Count 2.05 k/cumm (1.2-3.4); Absolute Monocyte Count 0.49 k/cumm (0.11-0.7); Absolute Neutrophil Count 2.88 k/cumm (1.2-6.7); Basophils % 0.2; Eosinophils % 5.1; HCT 40.7 % (40.0-50.0); HGB 13.5 g/dL (13.5-17.5); Immature Grans % 0.2 %; Lymphocytes % 35.8; Mean Corp. HGB Concentration 33.2 g/dL (32.0-36.0); Mean Corpuscular Hemoglobin 30.8 pg (27.0-33.0); Mean Corpuscular Volume 92.7 fL (80-95); Mean Platelet Volume 9.1 fL (8.0-11.0); Monocytes % 8.6; Neutrophils % 50.1; Platelet Count 166 x1000/uL (130-400); RBC 4.39 m/cumm (4.50-6.00); RBC Distribution Width 13.9 % (11.8-14.1); White Blood Cell Count 5.73 k/cumm (4.4-10.8)
[2020-02-27] MEDS: Lactated Ringers 1,000 ML 100 ML IV (09:36)
[2020-02-27 10:13] LABS: ESR 28 mm/hr (1-20)
--- NOTE | 2020-02-27 11:29 | PDOC.DSDIS_ITS ---
Discharge Plan Disposition Patient Disposition: OTHER Condition: Stable Discharge Details Reason For Visit: Left shoulder surgery Attending Provider: Chase Sun Primary Care Provider: Vaibhav Brock Home Meds and New Rx's Prescriptions: New tramadol 50 mg Tablet 50 mg PO Q8H PRN PRN (Reason: severe pain) Qty: 5 RF: 0 Continued Myrbetriq 25 MG tablet extended release 24 hr 25 mg PO DAILY Qty: 30 RF: 12 tamsulosin [Flomax] 0.4 mg capsule 0.4 mg PO QAM Qty: 90 RF: 4 carbamazepine 200 mg Tablet 200 mg PO BID RF: 0 ondansetron 4 mg tablet,disintegrating 4 mg PO TID PRN (Reason: nausea and vomiting) Qty: 10 RF: 0 diphenhydramine HCl [Benadryl] 25 mg Capsule 25 - 50 mg PO Q6H PRNRF: 0 ibuprofen 400 mg Tablet 400 mg PO TID PRNRF: 0 loperamide 2 mg Tablet 2 - 4 mg PO PRN PRNRF: 0 magnesium hydroxide [Milk of Magnesia] 400 mg/5 mL Suspension 5 - 15 ml PO PRN PRNRF: 0 Cerovite Senior Tablet 1 tab PO QAM RF: 0 cholecalciferol (vitamin D3) [Vitamin D3] 400 unit Tablet 400 unit PO QAM RF: 0 docusate sodium [Dulcolax Stool Softener (dss)] 100 mg capsule 100 mg PO DAILY Qty: 30 RF: 2 alum-mag hydroxide-simeth [Mylanta Maximum Strength] 400-400-40 mg/5 mL Suspension 15 - 30 ml PO QID PRNRF: 0 amantadine HCl 100 mg Capsule 100 mg PO BID RF: 0 acetaminophen 325 MG tablet 650 mg PO PRN PRN (Reason: Discomfort) RF: 0 polyethylene glycol 3350 17 GM powder in packet 17 gm PO DAILY RF: 0 clozapine [Clozaril] 100 MG tablet 300 - 500 mg PO BID RF: 0 clonazepam 0.5 MG tablet 0.5 mg PO BID RF: 0 propranolol 60 MG tablet 60 mg PO BID RF: 0 simvastatin 40 MG tablet 60 mg PO HS RF: 0 pantoprazole 40 MG tablet,delayed release (DR/EC) 40 mg PO DAILY RF: 0 buspirone 10 MG tablet 20 mg PO QAM RF: 0 risperidone 4 MG tablet,disintegrating 4 mg PO HS RF: 0 Discharge Instructions Additional Instructions: Surgery: Left shoulder removal of hardware (1 screw) Activity: Continue light weightbearing, no heavy lifting left shoulder to allow for fracture healing. May use arm for ADLs. Gentle progressive range of motion okay. A physical therapy prescription will be provided separately in the office at follow-up if needed. Prescriptions: Naproxen 250 mg take 1-2 every 12 hours with a meal as needed for moderate pain Tramadol 50 mg take 1 every 8 hours as needed for severe pain You may use [id number] Tylenol (acetaminophen) as needed for mild pain. These pain medications may be taken all at once or in different combinations as needed. Also, recommend Colace (docusate) as a stool softener as surgery and pain medicine cause constipation. Dressings: Leave dressing in place for 5 days. May then remove and leave open to air or cover with Band-Aid. May shower after 7 days. Follow-up: 10-[address] Sun Please call the office during business hours with any questions or concerns. Let us know right away if you develop any redness, drainage, fevers, chest pain, or trouble breathing. Do not drink alcohol or drive for at least 24 hours after anesthesia. Referrals: Chase Sun MD [ [facility] STAFF PHYSICIAN] - Discharge Orders Discharge Orders: Discharge Order (Routine); Ordered 02/27/20 Ordered By: Chase Sun DS: Diagnosis Discharge Diagnosis (1) Painful orthopaedic hardware: Status: Acute
--- NOTE | 2020-02-27 11:30 | W.PM.OP ---
Date of service: 02/27/20 Time of Service: 13:02 Operative Note Operative Note DATE OF PROCEDURE: 02/27/20 PRE-OP DIAGNOSIS: Left shoulder prominent hardware POST-OP DIAGNOSIS: same PROCEDURE: Left shoulder removal of deep implant, CPT# 87683 SURGEON: Chase Sun [employer] WORKERS: Amalia Reveles ANESTHESIA: GETA and local ESTIMATED BLOOD LOSS: 5 COMPLICATIONS: None Patient was transported to: PACU Patient's condition: stable Implants: Removal of 1x 3.5 mm Synthes LCP proximal humerus plate screw Indications: Please see complete medical record for details. Findings: Proximal humerus fracture and all remaining hardware moving as one unit under exam under anesthesia. No signs of infection. Procedure Description: In the operating room, general anesthesia was induced. The patient was positioned supine on the operating room table. All bony prominences were well-padded. Preoperative antibiotics were administered. The left shoulder was prepped and draped in the usual sterile fashion. The correct patient, procedure, and side of the procedure were all verified prior to incision. Fluoroscopic guidance was used to localize the appropriate anterior lateral start point to target the removal of the planned slightly prominent most superior and posterior proximal humerus locking screw. A longitudinal stab incision was made, subcutaneous, deep tissues, and deltoid muscle fibers were split gently in line using a snap and then a tonsil. The tonsil was advanced down until the plate was palpated and then adjusted using fluoroscopic guidance until the tips were in the appropriate screw hole. The tonsil tips were spread apart and the screwdriver was inserted into the head of the screw. The screwdriver was used to unlock the screw from the plate but as it was backing out farther it did not have enough bony purchase to continue driving itself outward. Attempt was made to grab the head of the screw using a tonsil and then an Allis clamp so that it could be brought out while pulling backwards. This could not be done percutaneously. The incision was lengthened a centimeter proximally and distally. A Wily was used to spread again in line with deep tissue and gently through deltoid muscle fibers and retractors were placed exposing the screw head. Allis clamp was placed on had a screw and used to maintain backwards pressure all the screw was removed without difficulty. The screw was inspected found to be remove entirety. C arm images were used to confirm appropriate screw removal. Multiple orthogonal oblique views were used to also confirm there were no other prominent or loose screws. The fracture site malunion/delayed union move as a single unit through external rotation to 60 degrees, internal rotation to the patient's side, and almost 90 degrees abduction. There were no blocks to motion. Deeply, in the incision there was no purulence, fluid, or significant scar tissue about the visible superior posterior aspect of the plate. Normal saline irrigation was used copiously irrigate deeply. Deep fascia was closed using a single stitch of 0 Vicryl in a buried interrupted fashion. Subcutaneous tissues were irrigated and then closed in 2-0 Monocryl in buried and fashion. Skin was closed with 3-0 Monocryl in a buried running subcuticular fashion. Skin glue was applied over the incision followed by dry nonadherent Telfa, gauze and Tegaderm dressing. The patient awoke from anesthesia without complication and was transferred to the recovery room in a stable condition.
--- NOTE | 2020-02-27 12:40 | DI.RAD_ITS ---
EXAM: XR SHOULDER LT 1V CLINICAL HISTORY: PA[employer]. TECHNIQUE: 2D and realtime digital imaging was performed. COMPARISON: CR XR SHOULDER LT COMPLETE 2+V from 02/18/2020 FINDINGS: Fluoroscopy was provided in the OR. A fracture beneath the level of the humeral head and lateral fi xation plate is again noted. There has been no change in fracture alignment. Please see procedure n ote for details. Fluoro time: 5.17 mGy, 73 sec RADIATION DOSE DELIVERED:
[2020-02-27 12:54] VITALS: BP 131/84; PULSE 67; RESP 13; TEMP 36.5; O2SAT 98
[2020-02-27 12:59] VITALS: BP 137/89; PULSE 66; RESP 14; TEMP 36.5; O2SAT 98
[2020-02-27 13:04] VITALS: BP 136/92; PULSE 67; RESP 17; TEMP 36.5; O2SAT 98
[2020-02-27 14:00] VITALS: BP 140/97; PULSE 68; RESP 16; TEMP 36.1; O2SAT 16
[2020-02-27 16:46] LABS: CRP, High Sensitivity 2.69 mg/L (See Note)
== END 2020-02-27 14:40 | disposition other institution (70) ==
PROVIDERS: PCP Internal Medicine; Visit Provider Student in an Organized Health Care Education/Training Program
PROC: (CPT 20680; principal; 2020-02-27 10:00)
DX: T84.84XA Pain due to internal orthopedic prosthetic devices, implants and grafts, initial encounter (principal); S42.292D Other displaced fracture of upper end of left humerus, subsequent encounter for fracture with routine healing; X58.XXXD Exposure to other specified factors, subsequent encounter
CPT/HCPCS: 20680; 36415; 85652; 86141; 73020; 85025; J1100; J1885; J2001; J2405

== ENCOUNTER 2020-03-09 12:46 | Outpatient (REF) | payer MEDICAID, SELFPAY ==
[2020-03-09 19:11] LABS: Abs Immature Grans 0.02 k/cumm (0.0-0.09); Absolute Basophil Count 0.01 k/cumm (0.0-0.2); Absolute Eosinophil Count 0.21 k/cumm (0.0-0.7); Absolute Monocyte Count 0.62 k/cumm (0.11-0.7); Absolute Neutrophil Count 3.91 k/cumm (1.2-6.7); Basophils % 0.1; Eosinophils % 3.1; HCT 39.7 % (40.0-50.0); HGB 13.3 g/dL (13.5-17.5); Immature Grans % 0.3 %; Lymphocytes % 29.5; Mean Corp. HGB Concentration 33.5 g/dL (32.0-36.0); Mean Corpuscular Hemoglobin 30.9 pg (27.0-33.0); Mean Corpuscular Volume 92.1 fL (80-95); Mean Platelet Volume 9.5 fL (8.0-11.0); Monocytes % 9.2; Neutrophils % 57.8; Platelet Count 193 x1000/uL (130-400); RBC 4.31 m/cumm (4.50-6.00); RBC Distribution Width 13.7 % (11.8-14.1); White Blood Cell Count 6.77 k/cumm (4.4-10.8)
== END 2020-03-09 13:06 ==
LOC: NCHCN 12:46
PROVIDERS: PCP Internal Medicine; Visit Provider Internal Medicine
DX: Z51.81 Encounter for therapeutic drug level monitoring (principal)
CPT/HCPCS: 85025

== ENCOUNTER 2020-04-06 11:55 | Outpatient (REF) | payer MEDICAID, SELFPAY ==
[2020-04-06 19:01] LABS: Abs Immature Grans 0.02 10^3/uL (0.0-0.06); Absolute Basophil Count 0.03 10^3/uL (0.0-0.2); Absolute Eosinophil Count 0.26 10^3/uL (0.0-0.7); Absolute Lymphocyte Count 2.25 10^3/uL (1.2-3.4); Absolute Monocyte Count 0.55 10^3/uL (0.1-0.8); Absolute Neutrophil Count 4.76 10^3/uL (1.2-6.7); Basophils % 0.4; Eosinophils % 3.3; HCT 39.1 % (40.0-50.0); HGB 12.9 g/dL (13.5-17.5); Immature Grans % 0.3; Lymphocytes % 28.6; MCH 31.5 pg (27.0-33.0); MCV 95.6 fL (80-95); MPV 9.8 fL (8.0-11.0); Neutrophils % 60.4; Platelet Count 151 10^3/uL (130-400); RBC 4.09 10^6/uL (4.36-5.78); RDW 13.9 % (11.8-14.1); RDW-SD 48.7 fL; WBC 7.87 10^3/uL (4.4-10.8)
[2020-04-06 19:36] LABS: ALT 35 U/L (16-63); Anion Gap 10.3 mmol/L (3-11); BUN 13 mg/dL (7-18); CO2 27.7 mmol/L (21.0-32.0); CREATININE 0.93 mg/dL (0.70-1.30); Calcium 9.8 mg/dL (8.5-10.1); Calculated LDL 142 mg/dL (<100); Chloride 97 mmol/L (98-107); Cholesterol 238 mg/dL (<200); Glucose 88 mg/dL (74-106); HDL Cholesterol 65 mg/dL (40-60); Potassium 4.6 mmol/L (3.5-5.1); Sodium 135 mmol/L (136-145); Triglyceride 155 mg/dL (<150)
[2020-04-06 19:37] LABS: Hemoglobin A1C 5.5 % (3.8-5.6)
== END 2020-04-06 12:15 ==
LOC: NCHCN 11:55
PROVIDERS: PCP Internal Medicine; Visit Provider Internal Medicine
DX: E78.5 Hyperlipidemia, unspecified (principal); Z51.81 Encounter for therapeutic drug level monitoring; F20.9 Schizophrenia, unspecified
CPT/HCPCS: 80048; 80061; 83036; 84460; 85025

== ENCOUNTER 2020-04-28 15:50 | Outpatient (CLI) | payer MEDICAID, SELFPAY ==
--- NOTE | 2020-04-28 13:15 | DI.RAD_ITS ---
EXAM: XR SHOULDER LT COMPLETE 2+V INDICATION: fu after removal of hardware. COMPARISON: CR XR SHOULDER LT COMPLETE 2+V from 10/14/2019 XR HUMERUS LT from 10/16/2019 CR XR SHOULDER LT COMPLETE 2+V from 02/18/[address] UPPER EXTREMITY LT WO from 02/20/2020 RF XR SHOULDER LT 1V from 02/27/2020 TECHNIQUE: 2D digital imaging was performed. FINDINGS: There has been no change in the alignment of the proximal humeral fracture or fixation plate. No new abnormalities are seen. DATA REPOSITORY: RADIATION DOSE DELIVERED:
== END 2020-04-28 16:10 ==
PROVIDERS: PCP Internal Medicine; Referring Provider Internal Medicine; Visit Provider Student in an Organized Health Care Education/Training Program
DX: S42.202A Unspecified fracture of upper end of left humerus, initial encounter for closed fracture (principal)
CPT/HCPCS: 73030

== ENCOUNTER 2020-06-01 10:38 | Outpatient (REF) | payer MEDICAID, SELFPAY ==
[2020-06-01 19:44] LABS: Abs Immature Grans 0.02 10^3/uL (0.0-0.06); Absolute Basophil Count 0.03 10^3/uL (0.0-0.2); Absolute Eosinophil Count 0.42 10^3/uL (0.0-0.7); Absolute Lymphocyte Count 2.32 10^3/uL (1.2-3.4); Absolute Monocyte Count 0.51 10^3/uL (0.1-0.8); Absolute Neutrophil Count 4.16 10^3/uL (1.2-6.7); Basophils % 0.4; Eosinophils % 5.6; Immature Grans % 0.3; Lymphocytes % 31.1; MCH 31.9 pg (27.0-33.0); MCHC 35.1 % (32.0-36.0); MCV 90.7 fL (80-95); MPV 10.1 fL (8.0-11.0); Monocytes % 6.8; Neutrophils % 55.8; Nucleated RBC 0 %; Platelet Count 179 10^3/uL (130-400); RBC 4.08 10^6/uL (4.36-5.78); RDW 12.5 % (11.8-14.1); RDW-SD 41.6 fL; WBC 7.46 10^3/uL (4.4-10.8)
== END 2020-06-01 10:58 ==
LOC: NCHCN 10:38
PROVIDERS: PCP Internal Medicine; Visit Provider Internal Medicine
DX: Z51.81 Encounter for therapeutic drug level monitoring (principal)
CPT/HCPCS: 85025

== ENCOUNTER 2020-06-29 19:20 | Outpatient (REF) | payer MEDICAID, SELFPAY ==
[2020-06-29 19:18] LABS: Abs Immature Grans 0.02 10^3/uL (0.0-0.06); Absolute Basophil Count 0.04 10^3/uL (0.0-0.2); Absolute Eosinophil Count 0.27 10^3/uL (0.0-0.7); Absolute Lymphocyte Count 2.15 10^3/uL (1.2-3.4); Absolute Monocyte Count 0.42 10^3/uL (0.1-0.8); Basophils % 0.5; Eosinophils % 3.6; HGB 13.2 g/dL (13.5-17.5); Immature Grans % 0.3; Lymphocytes % 29.1; MCH 31.4 pg (27.0-33.0); MCHC 33.8 % (32.0-36.0); MCV 92.6 fL (80-95); Monocytes % 5.7; Neutrophils % 60.8; Nucleated RBC 0 %; Platelet Count 183 10^3/uL (130-400); RBC 4.21 10^6/uL (4.36-5.78); RDW 12.3 % (11.8-14.1)
== END 2020-06-29 19:40 ==
LOC: NCHCN 19:20
PROVIDERS: PCP Internal Medicine; Visit Provider Internal Medicine
DX: Z51.81 Encounter for therapeutic drug level monitoring (principal)
CPT/HCPCS: 85025

== ENCOUNTER 2020-07-14 14:39 | Outpatient (CLI) | payer MEDICAID, SELFPAY ==
--- NOTE | 2020-07-14 12:45 | DI.RAD_ITS ---
EXAM: XR SHOULDER LT COMPLETE 2+V CLINICAL HISTORY: f/u fracture. TECHNIQUE: 2D digital imaging was performed. COMPARISON: CR XR SHOULDER LT COMPLETE 2+V from 10/14/2019 CR XR SHOULDER LT COMPLETE 2+V from 10/28/2019 CR XR SHOULDER LT COMPLETE 2+V from 02/18/2020 CR XR SHOULDER LT COMPLETE 2+V from 04/28/2020 FINDINGS: There is again seen a sideplate and screws transfixing the proximal left humeral fracture. There is no change in alignment of the orthopedic hardware. There is a question of increased comminution of t he superior aspect of the humeral head. IMPRESSION: DATA REPOSITORY: RADIATION DOSE DELIVERED:
== END 2020-07-14 14:59 ==
PROVIDERS: PCP Internal Medicine; Visit Provider Student in an Organized Health Care Education/Training Program
DX: S42.292A Other displaced fracture of upper end of left humerus, initial encounter for closed fracture (principal)
CPT/HCPCS: 73030

== ENCOUNTER 2020-07-27 12:06 | Outpatient (REF) | payer MEDICAID, SELFPAY ==
[2020-07-27 19:36] LABS: HCT 39.6 % (40.0-50.0); HGB 13.5 g/dL (13.5-17.5); MCHC 34.1 % (32.0-36.0); MPV 9.8 fL (8.0-11.0); Platelet Count 194 10^3/uL (130-400); RBC 4.35 10^6/uL (4.36-5.78); RDW 12.9 % (11.8-14.1); RDW-SD 43.1 fL; WBC 7.68 10^3/uL (4.4-10.8)
== END 2020-07-27 12:26 ==
LOC: NCHCN 12:06
PROVIDERS: PCP Internal Medicine; Visit Provider Internal Medicine
DX: F20.9 Schizophrenia, unspecified (principal); Z51.81 Encounter for therapeutic drug level monitoring
CPT/HCPCS: 85027

== ENCOUNTER 2020-08-24 20:13 | Outpatient (REF) | payer MEDICAID, SELFPAY ==
[2020-08-24 19:37] LABS: Abs Immature Grans 0.01 10^3/uL (0.0-0.06); Absolute Basophil Count 0.04 10^3/uL (0.0-0.2); Absolute Eosinophil Count 0.36 10^3/uL (0.0-0.7); Absolute Lymphocyte Count 2.88 10^3/uL (1.2-3.4); Absolute Monocyte Count 0.63 10^3/uL (0.1-0.8); Absolute Neutrophil Count 3.55 10^3/uL (1.2-6.7); Basophils % 0.5; Eosinophils % 4.8; HGB 12.7 g/dL (13.5-17.5); Immature Grans % 0.1; Lymphocytes % 38.6; MCH 31.4 pg (27.0-33.0); MCHC 34.3 % (32.0-36.0); MCV 91.6 fL (80-95); MPV 9.3 fL (8.0-11.0); Monocytes % 8.4; Neutrophils % 47.6; Nucleated RBC 0 %; Platelet Count 188 10^3/uL (130-400); RBC 4.04 10^6/uL (4.36-5.78); RDW 13.2 % (11.8-14.1); RDW-SD 44.8 fL; WBC 7.47 10^3/uL (4.4-10.8)
== END 2020-08-24 20:33 ==
LOC: NCHCN 20:13
PROVIDERS: PCP Internal Medicine; Visit Provider Internal Medicine
DX: Z51.81 Encounter for therapeutic drug level monitoring (principal); F20.9 Schizophrenia, unspecified
CPT/HCPCS: 85025

== ENCOUNTER 2020-09-23 15:14 | Outpatient (REF) | payer MEDICAID, SELFPAY ==
[2020-09-23 15:25] LABS: Abs Immature Grans 0.01 10^3/uL (0.0-0.06); Absolute Basophil Count 0.03 10^3/uL (0.0-0.2); Absolute Eosinophil Count 0.22 10^3/uL (0.0-0.7); Absolute Lymphocyte Count 2.08 10^3/uL (1.2-3.4); Absolute Monocyte Count 0.49 10^3/uL (0.1-0.8); Absolute Neutrophil Count 3.99 10^3/uL (1.2-6.7); Basophils % 0.4; Eosinophils % 3.2; HCT 40.4 % (40.0-50.0); HGB 13.4 g/dL (13.5-17.5); Immature Grans % 0.1; Lymphocytes % 30.5; MCH 31.6 pg (27.0-33.0); MCHC 33.2 % (32.0-36.0); MCV 95.3 fL (80-95); MPV 9.6 fL (8.0-11.0); Monocytes % 7.2; Neutrophils % 58.6; Nucleated RBC 0 %; Platelet Count 184 10^3/uL (130-400); RBC 4.24 10^6/uL (4.36-5.78); RDW 13.1 % (11.8-14.1); RDW-SD 46.5 fL; WBC 6.82 10^3/uL (4.4-10.8)
== END 2020-09-23 15:34 ==
LOC: NCHCN 15:14
PROVIDERS: PCP Internal Medicine; Visit Provider Internal Medicine
DX: F20.9 Schizophrenia, unspecified (principal); Z79.899 Other long term (current) drug therapy; Z51.81 Encounter for therapeutic drug level monitoring
CPT/HCPCS: 85025

== ENCOUNTER 2020-10-21 11:43 | Outpatient (REF) | payer MEDICAID, SELFPAY ==
[2020-10-21 15:15] LABS: Abs Immature Grans 0.02 10^3/uL (0.0-0.06); Absolute Basophil Count 0.05 10^3/uL (0.0-0.2); Absolute Eosinophil Count 0.31 10^3/uL (0.0-0.7); Absolute Lymphocyte Count 2.62 10^3/uL (1.2-3.4); Absolute Monocyte Count 0.58 10^3/uL (0.1-0.8); Absolute Neutrophil Count 3.81 10^3/uL (1.2-6.7); Basophils % 0.7; Eosinophils % 4.2; HCT 39.1 % (40.0-50.0); HGB 13.5 g/dL (13.5-17.5); Immature Grans % 0.3; Lymphocytes % 35.5; MCH 32.2 pg (27.0-33.0); MCHC 34.5 % (32.0-36.0); MCV 93.3 fL (80-95); MPV 9.2 fL (8.0-11.0); Monocytes % 7.8; Neutrophils % 51.5; Nucleated RBC 0 %; Platelet Count 171 10^3/uL (130-400); RBC 4.19 10^6/uL (4.36-5.78); RDW 12.4 % (11.8-14.1); RDW-SD 42.8 fL; WBC 7.39 10^3/uL (4.4-10.8)
== END 2020-10-21 11:44 | disposition home or self-care (01) ==
LOC: NCHCN 11:43
PROVIDERS: PCP Internal Medicine; Visit Provider Internal Medicine
DX: Z51.81 Encounter for therapeutic drug level monitoring (principal)
CPT/HCPCS: 85025

== ENCOUNTER 2020-10-26 09:37 | Outpatient (CLI) | payer MEDICAID, SELFPAY ==
--- NOTE | 2020-10-26 08:45 | DI.RAD_ITS ---
EXAM: XR SHOULDER LT COMPLETE 2+V CLINICAL HISTORY: f/u TECHNIQUE: COMPARISON: CR XR SHOULDER LT COMPLETE 2+V from 07/14/2020 FINDINGS: Three views were obtained and show plate and screw fixation previous described proximal humeral fract ure. Alignment appears essentially unchanged in comparison with previous examination July 14 0. Humeral head appears grossly normally aligned with glenoid. IMPRESSION: RADIATION DOSE DELIVERED: Total DLP
== END 2020-10-26 09:38 | disposition home or self-care (01) ==
LOC: DIORS 09:37
PROVIDERS: PCP Internal Medicine; Visit Provider Student in an Organized Health Care Education/Training Program
DX: S42.292A Other displaced fracture of upper end of left humerus, initial encounter for closed fracture (principal)
CPT/HCPCS: 73030

== ENCOUNTER 2020-11-18 18:11 | Outpatient (REF) | payer MEDICAID, SELFPAY ==
[2020-11-18 18:22] LABS: HCT 37.5 % (40.0-50.0); HGB 12.6 g/dL (13.5-17.5); MCH 31.7 pg (27.0-33.0); MCHC 33.6 % (32.0-36.0); MCV 94.5 fL (80-95); MPV 10.1 fL (8.0-11.0); Platelet Count 170 10^3/uL (130-400); RBC 3.97 10^6/uL (4.36-5.78); RDW 12.4 % (11.8-14.1); RDW-SD 43.6 fL; WBC 7.25 10^3/uL (4.4-10.8)
== END 2020-11-18 18:12 | disposition home or self-care (01) ==
LOC: NCHCN 18:11
PROVIDERS: PCP Internal Medicine; Visit Provider Internal Medicine
DX: F20.9 Schizophrenia, unspecified (principal); Z79.899 Other long term (current) drug therapy
CPT/HCPCS: 85027

== ENCOUNTER 2020-12-10 14:16 | Outpatient (REF) | payer MEDICAID, SELFPAY ==
[2020-12-10 18:12] LABS: Abs Immature Grans 0.01 10^3/uL (0.0-0.06); Absolute Basophil Count 0.03 10^3/uL (0.0-0.2); Absolute Eosinophil Count 0.29 10^3/uL (0.0-0.7); Absolute Monocyte Count 0.59 10^3/uL (0.1-0.8); Absolute Neutrophil Count 3.16 10^3/uL (1.2-6.7); Basophils % 0.5; Eosinophils % 4.5; HCT 39.5 % (40.0-50.0); HGB 13.3 g/dL (13.5-17.5); Immature Grans % 0.2; Lymphocytes % 36.1; MCH 32.2 pg (27.0-33.0); MCHC 33.7 % (32.0-36.0); MCV 95.6 fL (80-95); MPV 9.4 fL (8.0-11.0); Monocytes % 9.2; Neutrophils % 49.5; Nucleated RBC 0 %; Platelet Count 180 10^3/uL (130-400); RBC 4.13 10^6/uL (4.36-5.78); RDW-SD 45.9 fL; WBC 6.38 10^3/uL (4.4-10.8)
== END 2020-12-10 14:17 | disposition home or self-care (01) ==
LOC: NCHCN 14:16
PROVIDERS: PCP Internal Medicine; Visit Provider Internal Medicine
DX: Z51.81 Encounter for therapeutic drug level monitoring (principal)
CPT/HCPCS: 85025

== ENCOUNTER 2020-12-16 16:12 | Outpatient (REF) | payer MEDICAID, SELFPAY ==
[2020-12-16 16:02] LABS: Abs Immature Grans 0.04 10^3/uL (0.0-0.06); Absolute Basophil Count 0.03 10^3/uL (0.0-0.2); Absolute Neutrophil Count 11.12 10^3/uL (1.2-6.7); Basophils % 0.2; Eosinophils % 1.6; HCT 38.2 % (40.0-50.0); HGB 12.9 g/dL (13.5-17.5); Immature Grans % 0.3; Lymphocytes % 17.7; MCH 31.9 pg (27.0-33.0); MCHC 33.8 % (32.0-36.0); MCV 94.6 fL (80-95); MPV 10.1 fL (8.0-11.0); Monocytes % 7.3; Neutrophils % 72.9; Nucleated RBC 0 %; Platelet Count 163 10^3/uL (130-400); RBC 4.04 10^6/uL (4.36-5.78); RDW 12.9 % (11.8-14.1); RDW-SD 44.9 fL; WBC 15.26 10^3/uL (4.4-10.8)
[2020-12-16 16:58] LABS: Absolute Eosinophil Count 0.24 10^3/uL (0.0-0.7); Absolute Monocyte Count 1.11 10^3/uL (0.1-0.8)
== END 2020-12-16 16:13 | disposition home or self-care (01) ==
LOC: NCHCN 16:12
PROVIDERS: PCP Internal Medicine; Visit Provider Internal Medicine
DX: F20.9 Schizophrenia, unspecified (principal); Z79.899 Other long term (current) drug therapy
CPT/HCPCS: 85025

== ENCOUNTER 2021-01-13 13:08 | Outpatient (REF) | payer MEDICAID, SELFPAY ==
[2021-01-13 15:27] LABS: Abs Immature Grans 0.02 10^3/uL (0.0-0.06); Absolute Basophil Count 0.04 10^3/uL (0.0-0.2); Absolute Eosinophil Count 0.31 10^3/uL (0.0-0.7); Absolute Lymphocyte Count 2.25 10^3/uL (1.2-3.4); Absolute Monocyte Count 0.66 10^3/uL (0.1-0.8); Absolute Neutrophil Count 4.04 10^3/uL (1.2-6.7); Basophils % 0.5; Eosinophils % 4.2; HCT 39.9 % (40.0-50.0); HGB 13.1 g/dL (13.5-17.5); Immature Grans % 0.3; Lymphocytes % 30.7; MCH 31.5 pg (27.0-33.0); MCHC 32.8 % (32.0-36.0); MCV 95.9 fL (80-95); Neutrophils % 55.3; Nucleated RBC 0 %; Platelet Count 177 10^3/uL (130-400); RBC 4.16 10^6/uL (4.36-5.78); RDW 13.1 % (11.8-14.1); RDW-SD 46.6 fL; WBC 7.32 10^3/uL (4.4-10.8)
== END 2021-01-13 13:09 | disposition home or self-care (01) ==
LOC: NCHCN 13:08
PROVIDERS: PCP Internal Medicine; Visit Provider Internal Medicine
DX: F20.9 Schizophrenia, unspecified (principal); Z79.899 Other long term (current) drug therapy
CPT/HCPCS: 85025

== ENCOUNTER 2021-02-17 23:58 | Outpatient (REF) | payer MEDICAID, SELFPAY ==
[2021-02-17 18:32] LABS: Abs Immature Grans 0.02 10^3/uL (0.0-0.06); Absolute Basophil Count 0.03 10^3/uL (0.0-0.2); Absolute Eosinophil Count 0.31 10^3/uL (0.0-0.7); Absolute Lymphocyte Count 2.51 10^3/uL (1.2-3.4); Absolute Monocyte Count 0.72 10^3/uL (0.1-0.8); Absolute Neutrophil Count 6.47 10^3/uL (1.2-6.7); Basophils % 0.3; Eosinophils % 3.1; HCT 37.8 % (40.0-50.0); HGB 12.7 g/dL (13.5-17.5); Immature Grans % 0.2; MCH 31.5 pg (27.0-33.0); MCHC 33.6 % (32.0-36.0); MCV 93.8 fL (80-95); MPV 9.8 fL (8.0-11.0); Monocytes % 7.2; Neutrophils % 64.2; Nucleated RBC 0 %; Platelet Count 190 10^3/uL (130-400); RBC 4.03 10^6/uL (4.36-5.78); RDW 12.7 % (11.8-14.1); RDW-SD 44.3 fL; WBC 10.06 10^3/uL (4.4-10.8)
== END 2021-02-17 23:59 | disposition home or self-care (01) ==
LOC: NCHCN 23:58
PROVIDERS: PCP Internal Medicine; Visit Provider Internal Medicine
DX: F20.9 Schizophrenia, unspecified (principal); Z79.899 Other long term (current) drug therapy
CPT/HCPCS: 85025

== ENCOUNTER 2021-03-10 10:20 | Outpatient (REF) | payer MEDICAID, SELFPAY ==
[2021-03-10 19:03] LABS: Abs Immature Grans 0.04 10^3/uL (0.0-0.06); Absolute Basophil Count 0.03 10^3/uL (0.0-0.2); Absolute Eosinophil Count 0.36 10^3/uL (0.0-0.7); Absolute Lymphocyte Count 1.87 10^3/uL (1.2-3.4); Absolute Monocyte Count 0.72 10^3/uL (0.1-0.8); Absolute Neutrophil Count 5.31 10^3/uL (1.2-6.7); Basophils % 0.4; Eosinophils % 4.3; HCT 38.6 % (40.0-50.0); HGB 12.8 g/dL (13.5-17.5); Immature Grans % 0.5; Lymphocytes % 22.4; MCH 31.3 pg (27.0-33.0); MCHC 33.2 % (32.0-36.0); MCV 94.4 fL (80-95); MPV 9.4 fL (8.0-11.0); Monocytes % 8.6; Neutrophils % 63.8; Nucleated RBC 0 %; Platelet Count 212 10^3/uL (130-400); RBC 4.09 10^6/uL (4.36-5.78); RDW 12.9 % (11.8-14.1); RDW-SD 44.7 fL; WBC 8.33 10^3/uL (4.4-10.8)
== END 2021-03-10 10:21 | disposition home or self-care (01) ==
LOC: NCHCN 10:20
PROVIDERS: PCP Internal Medicine; Visit Provider Internal Medicine
DX: Z51.81 Encounter for therapeutic drug level monitoring (principal); F20.9 Schizophrenia, unspecified
CPT/HCPCS: 85025

== ENCOUNTER 2021-04-07 16:05 | Outpatient (REF) | payer MEDICAID, SELFPAY ==
[2021-04-07 19:10] LABS: Abs Immature Grans 0.02 10^3/uL (0.0-0.06); Absolute Basophil Count 0.02 10^3/uL (0.0-0.2); Absolute Eosinophil Count 0.31 10^3/uL (0.0-0.7); Absolute Lymphocyte Count 2.03 10^3/uL (1.2-3.4); Absolute Monocyte Count 0.63 10^3/uL (0.1-0.8); Absolute Neutrophil Count 5.26 10^3/uL (1.2-6.7); Basophils % 0.2; Eosinophils % 3.7; HCT 39.3 % (40.0-50.0); HGB 13.1 g/dL (13.5-17.5); Immature Grans % 0.2; Lymphocytes % 24.5; MCH 31.3 pg (27.0-33.0); MCHC 33.3 % (32.0-36.0); MCV 93.8 fL (80-95); MPV 9.5 fL (8.0-11.0); Monocytes % 7.6; Neutrophils % 63.8; Nucleated RBC 0 %; Platelet Count 206 10^3/uL (130-400); RBC 4.19 10^6/uL (4.36-5.78); RDW 12.8 % (11.8-14.1); RDW-SD 43.9 fL; WBC 8.27 10^3/uL (4.4-10.8)
== END 2021-04-07 16:06 | disposition home or self-care (01) ==
LOC: NCHCN 16:05
PROVIDERS: PCP Internal Medicine; Visit Provider Internal Medicine
DX: F20.9 Schizophrenia, unspecified (principal); Z79.899 Other long term (current) drug therapy; Z51.81 Encounter for therapeutic drug level monitoring
CPT/HCPCS: 85025

== ENCOUNTER 2021-05-27 13:37 | Outpatient (REF) | payer MEDICAID, SELFPAY ==
[2021-05-27 18:40] LABS: Abs Immature Grans 0.05 10^3/uL (0.0-0.06); Absolute Eosinophil Count 0.32 10^3/uL (0.0-0.7); Absolute Monocyte Count 0.92 10^3/uL (0.1-0.8); Basophils % 0.5; Eosinophils % 2.9; HCT 39.7 % (40.0-50.0); Immature Grans % 0.5; Lymphocytes % 20.6; MCH 30.9 pg (27.0-33.0); MCHC 32.7 % (32.0-36.0); MCV 94.3 fL (80-95); MPV 9.7 fL (8.0-11.0); Monocytes % 8.3; Neutrophils % 67.2; Nucleated RBC 0 %; Platelet Count 202 10^3/uL (130-400); RBC 4.21 10^6/uL (4.36-5.78); RDW 13.8 % (11.8-14.1); RDW-SD 47.4 fL; WBC 11.09 10^3/uL (4.4-10.8)
[2021-05-27 18:42] LABS: Absolute Basophil Count 0.06 10^3/uL (0.0-0.2); Absolute Lymphocyte Count 2.28 10^3/uL (1.2-3.4); Absolute Neutrophil Count 7.45 10^3/uL (1.2-6.7)
== END 2021-05-27 13:38 | disposition home or self-care (01) ==
LOC: NCHCN 13:37
PROVIDERS: PCP Internal Medicine; Referring Provider Internal Medicine; Visit Provider Internal Medicine
DX: F20.9 Schizophrenia, unspecified (principal); Z51.81 Encounter for therapeutic drug level monitoring
CPT/HCPCS: 85025

== ENCOUNTER 2021-06-27 13:42 | Outpatient (REF) | payer MEDICAID, SELFPAY ==
[2021-06-27 19:53] LABS: Abs Immature Grans 0.01 10^3/uL (0.0-0.06); Absolute Basophil Count 0.03 10^3/uL (0.0-0.2); Absolute Eosinophil Count 0.26 10^3/uL (0.0-0.7); Absolute Lymphocyte Count 2.67 10^3/uL (1.2-3.4); Absolute Neutrophil Count 4.97 10^3/uL (1.2-6.7); Basophils % 0.4; Eosinophils % 3.1; HCT 38.4 % (40.0-50.0); HGB 13.1 g/dL (13.5-17.5); Immature Grans % 0.1; MCH 31.6 pg (27.0-33.0); MCHC 34.1 % (32.0-36.0); MCV 92.8 fL (80-95); MPV 9.7 fL (8.0-11.0); Monocytes % 4.8; Neutrophils % 59.6; Nucleated RBC 0 %; Platelet Count 203 10^3/uL (130-400); RBC 4.14 10^6/uL (4.36-5.78); RDW 13.3 % (11.8-14.1); RDW-SD 45.7 fL; WBC 8.34 10^3/uL (4.4-10.8)
== END 2021-06-27 13:43 | disposition home or self-care (01) ==
LOC: NCHCN 13:42
PROVIDERS: PCP Internal Medicine; Visit Provider Internal Medicine
DX: F20.9 Schizophrenia, unspecified (principal); Z51.81 Encounter for therapeutic drug level monitoring
CPT/HCPCS: 85025

== ENCOUNTER 2021-08-03 12:25 | Outpatient (REF) | payer MEDICAID, SELFPAY ==
[2021-08-03 17:15] LABS: Abs Immature Grans 0.01 10^3/uL (0.0-0.06); Absolute Basophil Count 0.03 10^3/uL (0.0-0.2); Absolute Eosinophil Count 0.32 10^3/uL (0.0-0.7); Absolute Lymphocyte Count 2.49 10^3/uL (1.2-3.4); Absolute Monocyte Count 0.58 10^3/uL (0.1-0.8); Absolute Neutrophil Count 3.48 10^3/uL (1.2-6.7); Basophils % 0.4; Eosinophils % 4.6; HGB 12.9 g/dL (13.5-17.5); Immature Grans % 0.1; MCH 31.1 pg (27.0-33.0); MCHC 33.1 % (32.0-36.0); MPV 9.9 fL (8.0-11.0); Monocytes % 8.4; Neutrophils % 50.5; Nucleated RBC 0 %; Platelet Count 179 10^3/uL (130-400); RBC 4.15 10^6/uL (4.36-5.78); RDW 13.5 % (11.8-14.1); RDW-SD 46.7 fL; WBC 6.91 10^3/uL (4.4-10.8)
== END 2021-08-03 12:26 | disposition home or self-care (01) ==
LOC: NCHCN 12:25
PROVIDERS: PCP Internal Medicine; Visit Provider Internal Medicine
DX: Z51.81 Encounter for therapeutic drug level monitoring (principal)
CPT/HCPCS: 85025

== ENCOUNTER 2021-08-24 14:46 | Outpatient (REF) | payer MEDICAID, SELFPAY ==
[2021-08-24 21:00] LABS: Abs Immature Grans 0.03 10^3/uL (0.0-0.06); Absolute Basophil Count 0.04 10^3/uL (0.0-0.2); Absolute Eosinophil Count 0.32 10^3/uL (0.0-0.7); Absolute Lymphocyte Count 2.22 10^3/uL (1.2-3.4); Absolute Monocyte Count 0.76 10^3/uL (0.1-0.8); Basophils % 0.5; Eosinophils % 3.7; HCT 38.1 % (40.0-50.0); HGB 12.5 g/dL (13.5-17.5); Immature Grans % 0.4; Lymphocytes % 25.9; MCH 31.3 pg (27.0-33.0); MCHC 32.8 % (32.0-36.0); MCV 95.3 fL (80-95); MPV 9.5 fL (8.0-11.0); Monocytes % 8.9; Neutrophils % 60.6; Nucleated RBC 0 %; Platelet Count 211 10^3/uL (130-400); RDW 13.1 % (11.8-14.1); RDW-SD 46.2 fL; WBC 8.57 10^3/uL (4.4-10.8)
== END 2021-08-24 14:47 | disposition home or self-care (01) ==
LOC: NCHCN 14:46
PROVIDERS: PCP Internal Medicine; Visit Provider Internal Medicine
DX: Z51.81 Encounter for therapeutic drug level monitoring (principal)
CPT/HCPCS: 85025

== ENCOUNTER 2021-09-23 20:36 | Outpatient (REF) | payer MEDICAID, SELFPAY ==
[2021-09-23 19:41] LABS: Abs Immature Grans 0.01 10^3/uL (0.0-0.06); Absolute Basophil Count 0.03 10^3/uL (0.0-0.2); Absolute Eosinophil Count 0.31 10^3/uL (0.0-0.7); Absolute Lymphocyte Count 2.15 10^3/uL (1.2-3.4); Absolute Monocyte Count 0.62 10^3/uL (0.1-0.8); Absolute Neutrophil Count 4.46 10^3/uL (1.2-6.7); Basophils % 0.4; Eosinophils % 4.1; HCT 41.6 % (40.0-50.0); HGB 13.7 g/dL (13.5-17.5); Immature Grans % 0.1; Lymphocytes % 28.4; MCHC 32.9 % (32.0-36.0); MCV 94.1 fL (80-95); Monocytes % 8.2; Neutrophils % 58.8; Nucleated RBC 0 %; Platelet Count 198 10^3/uL (130-400); RBC 4.42 10^6/uL (4.36-5.78); RDW 13.2 % (11.8-14.1); RDW-SD 45.7 fL; WBC 7.58 10^3/uL (4.4-10.8)
[2021-09-23 20:16] LABS: ALT 36 U/L (16-63); AST 36 U/L (15-37); Albumin 4.4 g/dL (3.4-5.0); Alkaline Phosphatase 172 U/L (46-116); Anion Gap 8.2 mmol/L (3-11); BUN 12 mg/dL (7-18); Bilirubin, Total 0.4 mg/dL (0.2-1.0); CO2 28.8 mmol/L (21.0-32.0); CREATININE 1.2 mg/dL (0.70-1.30); Calcium 9.3 mg/dL (8.5-10.1); Chloride 94 mmol/L (98-107); Glucose 105 mg/dL (74-106); LDL CHOLESTEROL 138 mg/dL (<100); Potassium 3.9 mmol/L (3.5-5.1); Sodium 131 mmol/L (136-145); Total Protein 7.9 g/dL (6.4-8.2)
== END 2021-09-23 20:37 | disposition home or self-care (01) ==
LOC: LBN 20:36
PROVIDERS: PCP Internal Medicine; Visit Provider Internal Medicine
DX: E78.5 Hyperlipidemia, unspecified (principal); Z51.81 Encounter for therapeutic drug level monitoring
CPT/HCPCS: 80053; 83721; 85025

== ENCOUNTER 2021-10-10 00:30 | Outpatient (CLI) | payer MEDICAID, SELFPAY ==
--- NOTE | 2021-10-10 | DI.CT_ITS ---
Exam(s) CT CHEST W EXAM: CT CHEST W CLINICAL HISTORY: HYPONATREMIA, E87.1,SMOKER TECHNIQUE: Imaging Protocol: Axial computed tomography images with coronal and sagittal reformatted images were created and reviewed CONTRAST MATERIAL: Intravenous: Omnipaque 350 Contrast volume 100 cc COMPARISON: CT CT UPPER EXT LT WO CONTRAST from 10/01/2019 CR XR CHEST 1V IN DI DEPT from 10/14/2019 FINDINGS: Tracheobronchial tree: No bronchiectasis or mucous plugging. Mediastinum and Jina: No dominant adenopathy or fluid collection. Pulmonary parenchyma: No consolidation or dominant measurable mass. No significant emphysematous or f ibrotic changes. Pleura: No effusion or pneumothorax. Heart: The heart is not dilated. Mild coronary artery calcifications are seen. Aorta: Thoracic aorta non-dilated. Mild atherosclerotic changes. Upper abdomen: Unremarkable. Lymph nodes: Within normal limits. Bones: Orthopedic hardware proximal left humerus. Old compression fracture T11. Soft tissues: Unremarkable. IMPRESSION: No acute abnormality. RADIATION DOSE DELIVERED: 688.06mGy.cm Total DLP DATA REPOSITORY: All CT scans at this facility are submitted to the National Radiology Data Registry (NRDR) Dose Index Registry (DIR) with the [employer] (ACR). RADIATION OPTIMIZATION: All CT scans at this facility use at least one of these dose optimization te chniques: automated exposure control; mA and/or kV adjustment per patient size (includes targeted exa ms where dose is matched to clinical indication); or iterative reconstruction.
[2021-10-10] MEDS: Omnipaque 350 MG/ML 100 ML BTL IJ (14:39)
== END 2021-10-10 00:50 ==
PROVIDERS: PCP Internal Medicine; Visit Provider Internal Medicine
DX: F17.210 Nicotine dependence, cigarettes, uncomplicated (principal); E87.1 Hypo-osmolality and hyponatremia
CPT/HCPCS: 71260; J3490

== ENCOUNTER 2021-10-19 14:49 | Outpatient (REF) | payer MEDICAID, SELFPAY ==
[2021-10-19 19:52] LABS: Abs Immature Grans 0.07 10^3/uL (0.0-0.06); Absolute Basophil Count 0.02 10^3/uL (0.0-0.2); Absolute Eosinophil Count 0.27 10^3/uL (0.0-0.7); Absolute Monocyte Count 0.91 10^3/uL (0.1-0.8); Absolute Neutrophil Count 11.21 10^3/uL (1.2-6.7); Basophils % 0.1; Eosinophils % 1.8; HCT 38.9 % (40.0-50.0); HGB 12.6 g/dL (13.5-17.5); Immature Grans % 0.5; Lymphocytes % 17.8; MCH 30.8 pg (27.0-33.0); MCHC 32.4 % (32.0-36.0); MCV 95.1 fL (80-95); MPV 9.3 fL (8.0-11.0); Neutrophils % 73.8; Nucleated RBC 0 %; Platelet Count 233 10^3/uL (130-400); RBC 4.09 10^6/uL (4.36-5.78); RDW 13.2 % (11.8-14.1); RDW-SD 46.5 fL; WBC 15.19 10^3/uL (4.4-10.8)
== END 2021-10-19 14:50 | disposition home or self-care (01) ==
LOC: NCHCN 14:49
PROVIDERS: PCP Internal Medicine; Visit Provider Internal Medicine
DX: Z51.81 Encounter for therapeutic drug level monitoring (principal)
CPT/HCPCS: 85025

== ENCOUNTER 2021-10-25 09:18 | Outpatient (CLI) | payer MEDICAID, SELFPAY ==
--- NOTE | 2021-10-25 09:00 | DI.RAD_ITS ---
Exam(s) XR SHOULDER LT COMPLETE 2+V EXAM: XR SHOULDER LT COMPLETE 2+V CLINICAL HISTORY: s/p ORIF of proximal humerus. TECHNIQUE: 2D digital imaging was performed. COMPARISON: CR XR SHOULDER LT COMPLETE 2+V from 07/14/2020 CR XR SHOULDER LT COMPLETE 2+V from 10/26/[address] CHEST W from 10/10/2021 FINDINGS: Again noted is the previously described plate and screw fixation the level of the proximal humeral fr acture site. Alignment is unchanged but there is presently a larger defect on the articular side of the humeral head now evident. This may be a new significant finding and does not appear to be relate d to differences in projection. There does not appear to be screw loosening IMPRESSION: There appears to be some bone loss on the articular side of the humeral head compared to prior studie s. Further views recommended. DATA REPOSITORY: RADIATION DOSE DELIVERED:
== END 2021-10-25 09:19 | disposition home or self-care (01) ==
LOC: DIORS 09:18
PROVIDERS: PCP Internal Medicine; Referring Provider Internal Medicine; Visit Provider Physician Assistant
DX: M25.512 Pain in left shoulder; S42.292D Other displaced fracture of upper end of left humerus, subsequent encounter for fracture with routine healing; T84.84XA Pain due to internal orthopedic prosthetic devices, implants and grafts, initial encounter
CPT/HCPCS: 73030

== ENCOUNTER 2021-11-08 00:47 | Outpatient (CLI) | payer MEDICAID, SELFPAY ==
--- NOTE | 2021-11-08 07:30 | DI.CT_ITS ---
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 TECHNIQUE: Imaging Protocol: Axial computed tomography images with coronal and sagittal reformatted images were created and reviewed. COMPARISON: CT CT UPPER EXTREMITY LT WO from 02/20/2020 CR XR SHOULDER LT COMPLETE 2+V from 10/25/2021 FINDINGS: Bones: There is artifact from the patient's sideplate and screws. There is an old comminuted fractu re involving the proximal humerus. Hypertrophic changes are seen at the nonunion of fracture fragmen ts anteriorly. (Series 3, image 102). This may represent a pseudoarticulation. There are several w ell corticated osseous densities at the superior and medial aspect of the humeral head consistent wit h old fracture fragments. A lucency persists through the humeral head and shaft. There is some brid ging bone along the lateral aspect. (Series 5, image 85). No change in the alignment of the bones i s noted. No cellulitic or osteomyelitic changes are identified. Degenerative changes are seen at ac romioclavicular and glenohumeral joints. No lytic or sclerotic lesions are identified. Soft Tissues: Normal. IMPRESSION: Findings in the left shoulder secondary to sequelae of malunion. RADIATION DOSE DELIVERED: 931.03mGy.cm Total DLP 931.03mGy.cm Total DLP DATA REPOSITORY: All CT scans at this facility are submitted to the National Radiology Data Registry (NRDR) Dose Index Registry (DIR) with the [employer] (ACR). RADIATION OPTIMIZATION: All CT scans at this facility use at least one of these dose optimization te chniques: automated exposure control; mA and/or kV adjustment per patient size (includes targeted exa ms where dose is matched to clinical indication); or iterative reconstruction.
== END 2021-11-08 01:07 ==
PROVIDERS: PCP Internal Medicine; Visit Provider Student in an Organized Health Care Education/Training Program
DX: S42.292P Other displaced fracture of upper end of left humerus, subsequent encounter for fracture with malunion (principal); W00.0XXD Fall on same level due to ice and snow, subsequent encounter
CPT/HCPCS: 73200

== ENCOUNTER 2021-11-18 16:58 | Outpatient (REF) | payer MEDICAID, SELFPAY ==
[2021-11-18 18:53] LABS: Abs Immature Grans 0.02 10^3/uL (0.0-0.06); Absolute Basophil Count 0.03 10^3/uL (0.0-0.2); Absolute Eosinophil Count 0.31 10^3/uL (0.0-0.7); Absolute Lymphocyte Count 2.53 10^3/uL (1.2-3.4); Absolute Monocyte Count 0.54 10^3/uL (0.1-0.8); Absolute Neutrophil Count 5.46 10^3/uL (1.2-6.7); Basophils % 0.3; Eosinophils % 3.5; HCT 38.9 % (40.0-50.0); HGB 13.2 g/dL (13.5-17.5); Immature Grans % 0.2; Lymphocytes % 28.5; MCH 31.1 pg (27.0-33.0); MCHC 33.9 % (32.0-36.0); MCV 91.7 fL (80-95); MPV 9.8 fL (8.0-11.0); Monocytes % 6.1; Neutrophils % 61.4; Nucleated RBC 0 %; Platelet Count 196 10^3/uL (130-400); RBC 4.24 10^6/uL (4.36-5.78); RDW 13.1 % (11.8-14.1); RDW-SD 44.1 fL; WBC 8.89 10^3/uL (4.4-10.8)
[2021-11-18 19:12] LABS: Anion Gap 10.3 mmol/L (3-11); BUN 10 mg/dL (7-18); CO2 27.7 mmol/L (21.0-32.0); CREATININE 1.1 mg/dL (0.70-1.30); Calcium 9.5 mg/dL (8.5-10.1); Chloride 92 mmol/L (98-107); Glucose 85 mg/dL (74-106); Sodium 130 mmol/L (136-145); TSH 0.79 uIU/mL (0.36-3.74)
== END 2021-11-18 16:59 | disposition home or self-care (01) ==
LOC: NCHCN 16:58
PROVIDERS: PCP Internal Medicine; Visit Provider Internal Medicine
DX: E87.1 Hypo-osmolality and hyponatremia (principal); F20.9 Schizophrenia, unspecified; Z51.81 Encounter for therapeutic drug level monitoring
CPT/HCPCS: 80048; 84443; 85025

== ENCOUNTER 2021-12-15 18:57 | Outpatient (REF) | payer MEDICAID, SELFPAY ==
[2021-12-15 19:46] LABS: Abs Immature Grans 0.01 10^3/uL (0.0-0.06); Absolute Basophil Count 0.03 10^3/uL (0.0-0.2); Absolute Eosinophil Count 0.34 10^3/uL (0.0-0.7); Absolute Lymphocyte Count 2.43 10^3/uL (1.2-3.4); Absolute Monocyte Count 0.57 10^3/uL (0.1-0.8); Basophils % 0.4; Eosinophils % 4.7; HCT 40.3 % (40.0-50.0); HGB 13.4 g/dL (13.5-17.5); Immature Grans % 0.1; Lymphocytes % 33.4; MCH 30.9 pg (27.0-33.0); MCHC 33.3 % (32.0-36.0); MCV 93.1 fL (80-95); MPV 10.1 fL (8.0-11.0); Monocytes % 7.8; Neutrophils % 53.6; Nucleated RBC 0 %; Platelet Count 203 10^3/uL (130-400); RBC 4.33 10^6/uL (4.36-5.78); RDW 13.2 % (11.8-14.1); RDW-SD 45.9 fL; WBC 7.28 10^3/uL (4.4-10.8)
== END 2021-12-15 18:58 | disposition home or self-care (01) ==
LOC: NCHCN 18:57
PROVIDERS: PCP Internal Medicine; Visit Provider Internal Medicine
DX: F20.9 Schizophrenia, unspecified (principal); Z79.899 Other long term (current) drug therapy; Z51.81 Encounter for therapeutic drug level monitoring
CPT/HCPCS: 85025

== ENCOUNTER 2022-01-18 15:31 | Outpatient (REF) | payer MEDICAID, SELFPAY ==
[2022-01-18 20:35] LABS: Abs Immature Grans 0.02 10^3/uL (0.0-0.06); Absolute Basophil Count 0.03 10^3/uL (0.0-0.2); Absolute Eosinophil Count 0.32 10^3/uL (0.0-0.7); Absolute Lymphocyte Count 2.52 10^3/uL (1.2-3.4); Absolute Neutrophil Count 4.99 10^3/uL (1.2-6.7); Basophils % 0.4; Eosinophils % 3.8; HCT 38.4 % (40.0-50.0); HGB 13.1 g/dL (13.5-17.5); Immature Grans % 0.2; Lymphocytes % 29.7; MCH 31.2 pg (27.0-33.0); MCHC 34.1 % (32.0-36.0); MCV 91 fL (80-95); MPV 9.9 fL (8.0-11.0); Monocytes % 7.1; Neutrophils % 58.8; Platelet Count 188 10^3/uL (130-400); RDW-SD 42.8 fL; WBC 8.48 10^3/uL (4.4-10.8)
== END 2022-01-18 15:32 | disposition home or self-care (01) ==
LOC: NCHCN 15:31
PROVIDERS: PCP Internal Medicine; Visit Provider Internal Medicine
DX: F20.9 Schizophrenia, unspecified (principal); Z79.899 Other long term (current) drug therapy
CPT/HCPCS: 85025

== ENCOUNTER 2022-02-15 09:58 | Outpatient (REF) | payer MEDICAID, SELFPAY ==
[2022-02-15 20:01] LABS: Abs Immature Grans 0.02 10^3/uL (0.0-0.06); Absolute Basophil Count 0.04 10^3/uL (0.0-0.2); Absolute Eosinophil Count 0.36 10^3/uL (0.0-0.7); Absolute Lymphocyte Count 2.39 10^3/uL (1.2-3.4); Absolute Neutrophil Count 6.22 10^3/uL (1.2-6.7); Basophils % 0.4; Eosinophils % 3.7; HCT 37.8 % (40.0-50.0); HGB 13.2 g/dL (13.5-17.5); Immature Grans % 0.2; Lymphocytes % 24.8; MCH 31.6 pg (27.0-33.0); MCHC 34.9 % (32.0-36.0); MCV 90 fL (80-95); Monocytes % 6.2; Neutrophils % 64.7; Platelet Count 188 10^3/uL (130-400); RBC 4.18 10^6/uL (4.36-5.78); RDW 13.7 % (11.8-14.1); RDW-SD 46.1 fL; WBC 9.63 10^3/uL (4.4-10.8)
== END 2022-02-15 09:59 | disposition home or self-care (01) ==
LOC: NCHCN 09:58
PROVIDERS: PCP Internal Medicine; Visit Provider Internal Medicine
DX: F20.9 Schizophrenia, unspecified (principal); Z79.899 Other long term (current) drug therapy; Z51.81 Encounter for therapeutic drug level monitoring
CPT/HCPCS: 85025

== ENCOUNTER 2022-03-22 16:20 | Outpatient (REF) | payer MEDICAID, SELFPAY ==
[2022-03-22 19:01] LABS: Abs Immature Grans 0.02 10^3/uL (0.0-0.06); Absolute Basophil Count 0.04 10^3/uL (0.0-0.2); Absolute Eosinophil Count 0.23 10^3/uL (0.0-0.7); Absolute Monocyte Count 0.54 10^3/uL (0.1-0.8); Absolute Neutrophil Count 5.18 10^3/uL (1.2-6.7); Basophils % 0.5; Eosinophils % 2.9; HCT 36.5 % (40.0-50.0); Immature Grans % 0.2; MCH 30.8 pg (27.0-33.0); MCHC 32.9 % (32.0-36.0); MCV 94 fL (80-95); MPV 9.6 fL (8.0-11.0); Monocytes % 6.7; Neutrophils % 64.7; Platelet Count 190 10^3/uL (130-400); RBC 3.89 10^6/uL (4.36-5.78); RDW 14.1 % (11.8-14.1); RDW-SD 48.8 fL; WBC 8.01 10^3/uL (4.4-10.8)
== END 2022-03-22 16:21 | disposition home or self-care (01) ==
LOC: NCHCN 16:20
PROVIDERS: PCP Internal Medicine; Visit Provider Internal Medicine
DX: F20.9 Schizophrenia, unspecified (principal); Z51.81 Encounter for therapeutic drug level monitoring
CPT/HCPCS: 85025

== ENCOUNTER 2022-04-19 10:29 | Outpatient (REF) | payer MEDICAID, SELFPAY ==
[2022-04-19 18:48] LABS: Abs Immature Grans 0.02 10^3/uL (0.0-0.06); Absolute Basophil Count 0.03 10^3/uL (0.0-0.2); Absolute Eosinophil Count 0.23 10^3/uL (0.0-0.7); Absolute Lymphocyte Count 1.89 10^3/uL (1.2-3.4); Absolute Monocyte Count 0.72 10^3/uL (0.1-0.8); Absolute Neutrophil Count 6.94 10^3/uL (1.2-6.7); Basophils % 0.3; Eosinophils % 2.3; HCT 37.3 % (40.0-50.0); HGB 12.9 g/dL (13.5-17.5); Immature Grans % 0.2; Lymphocytes % 19.2; MCH 31.7 pg (27.0-33.0); MCHC 34.6 % (32.0-36.0); MCV 92 fL (80-95); MPV 9.9 fL (8.0-11.0); Monocytes % 7.3; Neutrophils % 70.7; Platelet Count 166 10^3/uL (130-400); RBC 4.07 10^6/uL (4.36-5.78); RDW 13.5 % (11.8-14.1); WBC 9.83 10^3/uL (4.4-10.8)
== END 2022-04-19 10:30 | disposition home or self-care (01) ==
LOC: NCHCN 10:29
PROVIDERS: PCP Internal Medicine; Visit Provider Internal Medicine
DX: Z51.81 Encounter for therapeutic drug level monitoring (principal)
CPT/HCPCS: 85025

== ENCOUNTER 2022-05-24 21:05 | Outpatient (REF) | payer MEDICAID, SELFPAY ==
[2022-05-24 20:06] LABS: Abs Immature Grans 0.03 10^3/uL (0.0-0.06); Absolute Basophil Count 0.04 10^3/uL (0.0-0.2); Absolute Eosinophil Count 0.28 10^3/uL (0.0-0.7); Absolute Lymphocyte Count 2.64 10^3/uL (1.2-3.4); Absolute Monocyte Count 0.78 10^3/uL (0.1-0.8); Absolute Neutrophil Count 4.77 10^3/uL (1.2-6.7); Basophils % 0.5; Eosinophils % 3.3; HCT 36.1 % (40.0-50.0); HGB 12.5 g/dL (13.5-17.5); Immature Grans % 0.4; Lymphocytes % 30.9; MCH 32.1 pg (27.0-33.0); MCHC 34.6 % (32.0-36.0); MCV 93 fL (80-95); MPV 9.7 fL (8.0-11.0); Monocytes % 9.1; Neutrophils % 55.8; Platelet Count 180 10^3/uL (130-400); RBC 3.89 10^6/uL (4.36-5.78); RDW 12.7 % (11.8-14.1); RDW-SD 42.9 fL; WBC 8.54 10^3/uL (4.4-10.8)
== END 2022-05-24 21:06 | disposition home or self-care (01) ==
LOC: NCHCN 21:05
PROVIDERS: PCP Internal Medicine; Visit Provider Nurse Practitioner Psychiatric/Mental Health
DX: F20.9 Schizophrenia, unspecified (principal); Z79.899 Other long term (current) drug therapy
CPT/HCPCS: 85025

== ENCOUNTER 2022-06-14 11:14 | Outpatient (CLI) | payer MEDICAID, SELFPAY ==
--- NOTE | 2022-06-14 09:45 | DI.RAD_ITS ---
Exam(s) XR SHOULDER LT COMPLETE 2+V EXAM: XR SHOULDER LT COMPLETE 2+V INDICATION: LEFT HUMERUS FX F/U. COMPARISON: CR XR SHOULDER LT COMPLETE 2+V from 07/14/2020 CR XR SHOULDER LT COMPLETE 2+V from 10/26/2020 CR XR SHOULDER LT COMPLETE 2+V from 10/25/[address] UPPER EXTREMITY LT WO from 11/08/2021 TECHNIQUE: 2D digital imaging was performed. Two views. FINDINGS: There has been no change in the screw and plate fixation in the proximal humerus. A defect in the ar ticular aspect of the humeral head appears unchanged. The malunited fracture of the proximal humeral shaft appears unchanged. No new findings. DATA REPOSITORY: RADIATION DOSE DELIVERED:
== END 2022-06-14 11:15 | disposition home or self-care (01) ==
LOC: DIORS 11:14
PROVIDERS: PCP Internal Medicine; Referring Provider Internal Medicine; Visit Provider Student in an Organized Health Care Education/Training Program
DX: S42.292P Other displaced fracture of upper end of left humerus, subsequent encounter for fracture with malunion (principal); W00.0XXD Fall on same level due to ice and snow, subsequent encounter
CPT/HCPCS: 73030

== ENCOUNTER 2022-06-21 18:40 | Outpatient (REF) | payer MEDICAID, SELFPAY ==
[2022-06-21 21:12] LABS: Abs Immature Grans 0.01 10^3/uL (0.0-0.06); Absolute Basophil Count 0.02 10^3/uL (0.0-0.2); Absolute Eosinophil Count 0.18 10^3/uL (0.0-0.7); Absolute Monocyte Count 0.51 10^3/uL (0.1-0.8); Absolute Neutrophil Count 3.94 10^3/uL (1.2-6.7); Basophils % 0.3; Eosinophils % 2.7; HGB 13.4 g/dL (13.5-17.5); Immature Grans % 0.2; MCH 31.2 pg (27.0-33.0); MCHC 33.5 % (32.0-36.0); MCV 93 fL (80-95); MPV 9.8 fL (8.0-11.0); Monocytes % 7.7; Neutrophils % 59.1; Platelet Count 214 10^3/uL (130-400); RBC 4.29 10^6/uL (4.36-5.78); RDW 12.8 % (11.8-14.1); RDW-SD 43.9 fL; WBC 6.66 10^3/uL (4.4-10.8)
== END 2022-06-21 18:41 | disposition home or self-care (01) ==
LOC: LBN 18:40
PROVIDERS: PCP Internal Medicine; Visit Provider Nurse Practitioner Psychiatric/Mental Health
DX: D70.8 Other neutropenia (principal); F20.89 Other schizophrenia; Z79.899 Other long term (current) drug therapy
CPT/HCPCS: 85025

== ENCOUNTER 2022-07-19 10:00 | Outpatient (REF) | payer MEDICAID, SELFPAY ==
[2022-07-19 20:51] LABS: Abs Immature Grans 0.02 10^3/uL (0.0-0.06); Absolute Basophil Count 0.05 10^3/uL (0.0-0.2); Absolute Lymphocyte Count 1.97 10^3/uL (1.2-3.4); Absolute Monocyte Count 0.58 10^3/uL (0.1-0.8); Absolute Neutrophil Count 4.16 10^3/uL (1.2-6.7); Basophils % 0.7; Eosinophils % 4.2; HCT 39.2 % (40.0-50.0); HGB 13.4 g/dL (13.5-17.5); Immature Grans % 0.3; Lymphocytes % 27.8; MCH 31.8 pg (27.0-33.0); MCHC 34.2 % (32.0-36.0); MCV 93 fL (80-95); MPV 9.8 fL (8.0-11.0); Monocytes % 8.2; Neutrophils % 58.8; Platelet Count 208 10^3/uL (130-400); RBC 4.22 10^6/uL (4.36-5.78); RDW 12.9 % (11.8-14.1); WBC 7.08 10^3/uL (4.4-10.8)
== END 2022-07-19 10:01 | disposition home or self-care (01) ==
LOC: LBN 10:00
PROVIDERS: PCP Internal Medicine; Visit Provider Nurse Practitioner Psychiatric/Mental Health
DX: F20.89 Other schizophrenia (principal); D70.8 Other neutropenia; Z79.899 Other long term (current) drug therapy
CPT/HCPCS: 85025

== ENCOUNTER 2022-08-17 13:16 | Outpatient (REF) | payer MEDICAID, SELFPAY ==
[2022-08-17 19:57] LABS: Abs Immature Grans 0.03 10^3/uL (0.0-0.06); Absolute Basophil Count 0.03 10^3/uL (0.0-0.2); Absolute Eosinophil Count 0.29 10^3/uL (0.0-0.7); Absolute Lymphocyte Count 2.38 10^3/uL (1.2-3.4); Absolute Monocyte Count 0.91 10^3/uL (0.1-0.8); Absolute Neutrophil Count 4.84 10^3/uL (1.2-6.7); Basophils % 0.4; Eosinophils % 3.4; HCT 41.7 % (40.0-50.0); HGB 14.2 g/dL (13.5-17.5); Immature Grans % 0.4; Lymphocytes % 28.1; MCH 31.6 pg (27.0-33.0); MCHC 34.1 % (32.0-36.0); MCV 93 fL (80-95); MPV 9.7 fL (8.0-11.0); Monocytes % 10.7; Platelet Count 197 10^3/uL (130-400); RDW 12.9 % (11.8-14.1); RDW-SD 44.3 fL; WBC 8.48 10^3/uL (4.4-10.8)
== END 2022-08-17 13:17 | disposition home or self-care (01) ==
LOC: LBN 13:16
PROVIDERS: PCP Internal Medicine; Visit Provider Nurse Practitioner Psychiatric/Mental Health
DX: F20.89 Other schizophrenia (principal); D70.8 Other neutropenia; Z79.899 Other long term (current) drug therapy
CPT/HCPCS: 85025

== ENCOUNTER 2022-10-05 17:06 | Outpatient (REF) | payer MEDICAID, SELFPAY ==
[2022-10-05 18:50] LABS: Abs Immature Grans 0.02 10^3/uL (0.0-0.06); Absolute Basophil Count 0.05 10^3/uL (0.0-0.2); Absolute Eosinophil Count 0.36 10^3/uL (0.0-0.7); Absolute Lymphocyte Count 2.72 10^3/uL (1.2-3.4); Absolute Monocyte Count 0.77 10^3/uL (0.1-0.8); Absolute Neutrophil Count 5.47 10^3/uL (1.2-6.7); Basophils % 0.5; Eosinophils % 3.8; HCT 37.9 % (40.0-50.0); HGB 13.2 g/dL (13.5-17.5); Immature Grans % 0.2; MCH 31.9 pg (27.0-33.0); MCHC 34.8 % (32.0-36.0); MCV 92 fL (80-95); MPV 9.8 fL (8.0-11.0); Monocytes % 8.2; Neutrophils % 58.3; Platelet Count 183 10^3/uL (130-400); RBC 4.14 10^6/uL (4.36-5.78); RDW 13.2 % (11.8-14.1); RDW-SD 44.6 fL; WBC 9.39 10^3/uL (4.4-10.8)
== END 2022-10-05 17:07 | disposition home or self-care (01) ==
LOC: NCHCN 17:06
PROVIDERS: PCP Internal Medicine; Visit Provider Internal Medicine
DX: F20.89 Other schizophrenia (principal); D70.8 Other neutropenia; Z79.899 Other long term (current) drug therapy
CPT/HCPCS: 85025

== ENCOUNTER 2022-10-19 02:08 | Outpatient (CLI) | payer MEDICAID, SELFPAY ==
--- NOTE | 2022-10-20 08:14 | W.PFT ---
Date of service: 10/19/22 Time of Service: 15:01 Pulmonary Function Test Result Requesting Provider Vaibhav Brock Indications: COPD Interpretation Spirometry: There is no airflow limitation. The FVC is low. Impression Normal spirometry. The low FVC may be pseudo-restriction from an elevated BMI, however restrictive lung disease can be ruled out without lung volume testing. Clinical Correlation therefore is recommended.
== END 2022-10-19 02:09 | disposition home or self-care (01) ==
LOC: RT 02:08
PROVIDERS: PCP Internal Medicine; Visit Provider Internal Medicine
DX: J44.9 Chronic obstructive pulmonary disease, unspecified (principal); R05.8 Other specified cough; F17.210 Nicotine dependence, cigarettes, uncomplicated
CPT/HCPCS: 94010

== ENCOUNTER 2022-10-26 11:00 | Outpatient (REF) | payer MEDICAID, SELFPAY ==
[2022-10-26 19:19] LABS: Abs Immature Grans 0.03 10^3/uL (0.0-0.06); Absolute Basophil Count 0.03 10^3/uL (0.0-0.2); Absolute Eosinophil Count 0.23 10^3/uL (0.0-0.7); Absolute Lymphocyte Count 2.42 10^3/uL (1.2-3.4); Absolute Monocyte Count 0.68 10^3/uL (0.1-0.8); Absolute Neutrophil Count 5.62 10^3/uL (1.2-6.7); Basophils % 0.3; Eosinophils % 2.6; HCT 42.6 % (40.0-50.0); HGB 14.1 g/dL (13.5-17.5); Immature Grans % 0.3; Lymphocytes % 26.9; MCH 30.9 pg (27.0-33.0); MCHC 33.1 % (32.0-36.0); MCV 93 fL (80-95); Monocytes % 7.5; Neutrophils % 62.4; Platelet Count 221 10^3/uL (130-400); RBC 4.57 10^6/uL (4.36-5.78); RDW 13.2 % (11.8-14.1); RDW-SD 45.4 fL; WBC 9.01 10^3/uL (4.4-10.8)
== END 2022-10-26 11:01 | disposition home or self-care (01) ==
LOC: NCHCN 11:00
PROVIDERS: PCP Internal Medicine; Visit Provider Nurse Practitioner Psychiatric/Mental Health
DX: F20.9 Schizophrenia, unspecified (principal); Z13.89 Encounter for screening for other disorder
CPT/HCPCS: 85025

== ENCOUNTER 2022-11-29 13:33 | Outpatient (REF) | payer MEDICAID, SELFPAY ==
[2022-11-30 02:08] LABS: Abs Immature Grans 0.02 10^3/uL (0.0-0.06); Absolute Basophil Count 0.03 10^3/uL (0.0-0.2); Absolute Monocyte Count 0.64 10^3/uL (0.1-0.8); Absolute Neutrophil Count 4.69 10^3/uL (1.2-6.7); Basophils % 0.4; Eosinophils % 3.7; HCT 40.4 % (40.0-50.0); HGB 13.6 g/dL (13.5-17.5); Immature Grans % 0.2; Lymphocytes % 30.6; MCH 31.3 pg (27.0-33.0); MCHC 33.7 % (32.0-36.0); MCV 93 fL (80-95); MPV 10.3 fL (8.0-11.0); Monocytes % 7.8; Neutrophils % 57.3; Platelet Count 207 10^3/uL (130-400); RBC 4.35 10^6/uL (4.36-5.78); RDW 12.8 % (11.8-14.1); RDW-SD 43.9 fL; WBC 8.18 10^3/uL (4.4-10.8)
== END 2022-11-29 13:34 | disposition home or self-care (01) ==
LOC: LBN 13:33
PROVIDERS: PCP Internal Medicine; Visit Provider Nurse Practitioner Psychiatric/Mental Health
DX: F20.89 Other schizophrenia (principal); Z79.899 Other long term (current) drug therapy
CPT/HCPCS: 85025

== ENCOUNTER 2022-12-13 10:40 | Outpatient (CLI) | payer MEDICAID, SELFPAY ==
--- NOTE | 2022-12-13 09:45 | DI.RAD_ITS ---
Exam(s) XR SHOULDER LT COMPLETE 2+V EXAM: XR SHOULDER LT COMPLETE 2+V CLINICAL HISTORY: left shoulder f/u. TECHNIQUE: 2D digital imaging was performed. Three views. COMPARISON: CR XR SHOULDER LT COMPLETE 2+V from 04/28/2020 CR XR SHOULDER LT COMPLETE 2+V from 07/14/2020 CR XR SHOULDER LT COMPLETE 2+V from 10/26/2020 CR XR SHOULDER LT COMPLETE 2+V from 10/25/2021 CR XR SHOULDER LT COMPLETE 2+V from 06/14/2022 FINDINGS: There has been some interval healing at the proximal humeral fracture site. The fixation plate is un changed in position. Defect in the medial humeral head is again noted, unchanged. There are degener ative changes at the glenohumeral joint. DATA REPOSITORY: RADIATION DOSE DELIVERED:
== END 2022-12-13 10:41 | disposition home or self-care (01) ==
LOC: DIORS 10:41
PROVIDERS: PCP Internal Medicine; Referring Provider Internal Medicine; Visit Provider Student in an Organized Health Care Education/Training Program
DX: S42.292D Other displaced fracture of upper end of left humerus, subsequent encounter for fracture with routine healing (principal); X58.XXXD Exposure to other specified factors, subsequent encounter
CPT/HCPCS: 73030

== ENCOUNTER 2022-12-19 11:55 | Outpatient (REF) | payer MEDICAID, SELFPAY ==
[2022-12-19 18:31] LABS: Abs Immature Grans 0.01 10^3/uL (0.0-0.06); Absolute Basophil Count 0.05 10^3/uL (0.0-0.2); Absolute Lymphocyte Count 1.93 10^3/uL (1.2-3.4); Absolute Monocyte Count 0.73 10^3/uL (0.1-0.8); Absolute Neutrophil Count 3.86 10^3/uL (1.2-6.7); Basophils % 0.7; Eosinophils % 5.7; HCT 38.3 % (40.0-50.0); HGB 13.2 g/dL (13.5-17.5); Immature Grans % 0.1; Lymphocytes % 27.7; MCH 31.4 pg (27.0-33.0); MCHC 34.5 % (32.0-36.0); MCV 91 fL (80-95); MPV 9.6 fL (8.0-11.0); Monocytes % 10.5; Neutrophils % 55.3; Platelet Count 185 10^3/uL (130-400); RDW 13.3 % (11.8-14.1); RDW-SD 44.8 fL; WBC 6.98 10^3/uL (4.4-10.8)
== END 2022-12-19 11:56 | disposition home or self-care (01) ==
LOC: LBN 11:55
PROVIDERS: PCP Internal Medicine; Visit Provider Nurse Practitioner Psychiatric/Mental Health
DX: F20.89 Other schizophrenia (principal); Z79.899 Other long term (current) drug therapy
CPT/HCPCS: 85025

== ENCOUNTER 2023-01-15 02:29 | Outpatient (CLI) | payer MEDICAID, SELFPAY ==
--- NOTE | 2023-01-15 11:00 | DI.CT_ITS ---
Exam(s) CT UPPER EXTREMITY LT WO EXAM: CT UPPER EXTREMITY LT WO CLINICAL HISTORY: Malunion,CLOSED FX LT PROXI HUMERUS,T84.84XA,W42.292A TECHNIQUE: Imaging Protocol: Axial computed tomography images with coronal and sagittal reformatted images were created and reviewed. CONTRAST MATERIAL: Noncontrast COMPARISON: CR XR SHOULDER LT COMPLETE 2+V from 10/25/[address] UPPER EXTREMITY LT WO from 11/08/2021 CR XR SHOULDER LT COMPLETE 2+V from 06/14/2022 CR XR SHOULDER LT COMPLETE 2+V from 12/13/2022 FINDINGS: Bones: There has been no change in the appearance of the proximal humeral fracture with side plate an d screw fixation. A large calcification is again noted anterior to the humeral head with the appeara nce of pseudoarticulation. Lucency remains present at the main fracture site at the surgical neck. There has been no change in the collapse of the medial humeral head and multiple small adjacent fragm ents. No cellulitic or osteomyelitic changes are identified. Degenerative changes are again noted at the glenohumeral joint.. No lytic or sclerotic lesions are identified. Soft Tissues: Glenohumeral joint effusion and some adjacent soft tissue thickening. Visualized port ions of the left lung appear clear. 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 RADIATION DOSE DELIVERED: 889.55mGy.cm Total DLP DATA REPOSITORY: All CT scans at this facility are submitted to the National Radiology Data Registry (NRDR) Dose Index Registry (DIR) with the [employer] (ACR). RADIATION OPTIMIZATION: All CT scans at this facility use at least one of these dose optimization te chniques: automated exposure control; mA and/or kV adjustment per patient size (includes targeted exa ms where dose is matched to clinical indication); or iterative reconstruction.
== END 2023-01-15 02:49 ==
PROVIDERS: PCP Internal Medicine; Visit Provider Student in an Organized Health Care Education/Training Program
DX: S42.292A Other displaced fracture of upper end of left humerus, initial encounter for closed fracture (principal); T84.84XA Pain due to internal orthopedic prosthetic devices, implants and grafts, initial encounter
CPT/HCPCS: 73200

== ENCOUNTER 2023-01-16 13:41 | Outpatient (REF) | payer MEDICAID, SELFPAY ==
[2023-01-16 19:20] LABS: Abs Immature Grans 0.02 10^3/uL (0.0-0.06); Absolute Basophil Count 0.04 10^3/uL (0.0-0.2); Absolute Eosinophil Count 0.32 10^3/uL (0.0-0.7); Absolute Lymphocyte Count 2.19 10^3/uL (1.2-3.4); Absolute Monocyte Count 0.68 10^3/uL (0.1-0.8); Absolute Neutrophil Count 6.48 10^3/uL (1.2-6.7); Basophils % 0.4; Eosinophils % 3.3; HCT 35.6 % (40.0-50.0); Immature Grans % 0.2; Lymphocytes % 22.5; MCH 30.9 pg (27.0-33.0); MCHC 33.7 % (32.0-36.0); MCV 92 fL (80-95); MPV 9.8 fL (8.0-11.0); Neutrophils % 66.6; Platelet Count 202 10^3/uL (130-400); RBC 3.88 10^6/uL (4.36-5.78); RDW 13.3 % (11.8-14.1); RDW-SD 45.3 fL; WBC 9.73 10^3/uL (4.4-10.8)
[2023-01-16 19:58] LABS: Calculated LDL 107 mg/dL (<100); Cholesterol 198 mg/dL (<200); HDL Cholesterol 70 mg/dL (40-60); Triglyceride 105 mg/dL (<150)
== END 2023-01-16 13:42 | disposition home or self-care (01) ==
LOC: NCHCN 13:41
PROVIDERS: PCP Internal Medicine; Visit Provider Internal Medicine
DX: E78.5 Hyperlipidemia, unspecified (principal); F20.89 Other schizophrenia
CPT/HCPCS: 80061; 85025

== ENCOUNTER 2023-02-20 13:12 | Outpatient (REF) | payer MEDICAID, SELFPAY ==
[2023-02-20 19:29] LABS: Abs Immature Grans 0.02 10^3/uL (0.0-0.06); Absolute Basophil Count 0.03 10^3/uL (0.0-0.2); Absolute Eosinophil Count 0.22 10^3/uL (0.0-0.7); Absolute Lymphocyte Count 2.26 10^3/uL (1.2-3.4); Absolute Neutrophil Count 4.61 10^3/uL (1.2-6.7); Basophils % 0.4; Eosinophils % 2.8; HCT 40.3 % (40.0-50.0); HGB 13.8 g/dL (13.5-17.5); Immature Grans % 0.3; Lymphocytes % 28.8; MCHC 34.2 % (32.0-36.0); MCV 94 fL (80-95); Monocytes % 8.9; Neutrophils % 58.8; Platelet Count 215 10^3/uL (130-400); RBC 4.31 10^6/uL (4.36-5.78); RDW 13.7 % (11.8-14.1); RDW-SD 46.6 fL; WBC 7.84 10^3/uL (4.4-10.8)
== END 2023-02-20 13:13 | disposition home or self-care (01) ==
LOC: NCHCN 13:12
PROVIDERS: PCP Internal Medicine; Visit Provider Internal Medicine
DX: F20.89 Other schizophrenia (principal); Z79.899 Other long term (current) drug therapy
CPT/HCPCS: 85025

== ENCOUNTER 2023-03-01 07:23 | Observation (INO) | payer MEDICAID, SELFPAY ==
[2023-03-01] VITALS (19 sets, daily range): BP systolic 85–143; BP diastolic 61–94; PULSE 73–92; RESP 11–21; TEMP 36–36.8; O2SAT 96–100; BMI 30.2
[2023-03-01] MEDS: Lactated Ringers 1,000 ML 30 ML IV ×3 (06:39→12:00)
--- NOTE | 2023-03-01 06:52 | W.ANESPRE ---
General Info Date of Service Date Performed: 03/01/23 Height: 5 ft 9 in Weight: 93 kg Body Mass Index (BMI): 30.2 Surgical Procedure: Operation Date: 03/01/23 07:40 Proposed Procedure Side Surgeon p Shoulder Reverse Total Arthroplasty Left Chase Sun MD s Hardware Removal Shoulder Left Chase Sun MD Meds Allergies and Home Medications Allergies Allergy/AdvReac Type Severity Reaction Status Date / Time No Known Allergies Allergy Verified 03/01/23 06:04 Home Medication Medication Instructions Recorded acetaminophen 325 mg tablet 650 mg PO PRN PRN Discomfort 01/19/17 buspirone 10 mg tablet 20 mg PO QAM 01/19/17 clonazepam 0.5 mg tablet 0.5 mg PO BID 01/19/17 pantoprazole 40 mg tablet,delayed 40 mg PO DAILY 01/19/17 release polyethylene glycol 3350 17 gram 17 gm PO DAILY 01/19/17 oral powder packet propranolol 60 mg tablet 60 mg PO BID 01/19/17 risperidone 4 mg disintegrating 6 mg PO HS 01/19/17 tablet carbamazepine 200 mg tablet 200 mg PO BID 03/20/19 ondansetron 4 mg disintegrating 4 mg PO TID PRN nausea and 03/20/19 tablet vomiting #10 tabs cholecalciferol (vitamin D3) 10 800 unit PO QAM 05/04/19 mcg (400 unit) tablet (Vitamin D3) diphenhydramine HCl 25 mg capsule 25 - 50 mg PO Q6H PRN 05/04/19 (Benadryl) docusate sodium 100 mg capsule 100 mg PO DAILY #30 caps 05/04/19 (Dulcolax Stool Softener (docusate)) ibuprofen 400 mg tablet 400 mg PO TID PRN 05/04/19 loperamide 2 mg tablet 2 - 4 mg PO PRN PRN 05/04/19 magnesium hydroxide 400 mg/5 mL 5 - 15 ml PO PRN PRN 05/04/19 oral suspension (Milk of Magnesia) embyyaavhdvf-uhrlzsmo-hrjhnv 1 tab PO QAM 05/04/19 tablet (Cerovite Senior) aluminum-mag hydroxide-simethicone 15 - 30 ml PO QID PRN 10/09/19 400 mg-400 mg-40 mg/5 mL oral susp (Mylanta Maximum Strength) amantadine HCl 100 mg capsule 100 mg PO BID 10/16/19 atorvastatin 20 mg tablet 20 mg PO HS 04/28/20 mirabegron 25 mg tablet,extended 25 mg PO DAILY #30 tab-caps 08/14/22 release 24 hr (Myrbetriq) alfuzosin 10 mg tablet,extended 10 mg PO DAILY #90 tabs 09/14/22 release 24 hr calcium carbonate 500 mg calcium 500 - 1,000 mg PO Q4H PRN 02/27/23 (1,250 mg) chewable tablet clonazepam 0.5 mg tablet 0.5 - 1 mg PO PRN PRN 02/27/23 clozapine 100 mg tablet (Clozaril) 300 mg PO QAM 02/27/23 clozapine 100 mg tablet (Clozaril) 500 mg PO QPM 02/27/23 Current Visit Medications: Current Medications Generic Name Dose Route Start Last Admin Trade Name Freq PRN Reason Stop Dose Admin Ringer's Solution 1,000 mls @ 30 mls/hr 03/01/23 06:00 03/01/23 06:39 IV 03/09/23 23:59 30 mls/hr INFUSION MANUELA Administration Cefazolin Sodium/Dextrose 2 gm in 50 mls @ 100 mls/hr 03/01/23 06:00 Ancef Duplex IVPB 03/01/23 23:59 PREOP MANUELA Tranexamic Acid 1,000 mg/ 60 mls @ 360 mls/hr 03/01/23 06:00 Sodium Chloride IVPB 03/01/23 16:00 PREOP MANUELA IV Miscellaneous Supplies 1 each 03/01/23 06:00 Iv Access IV 03/09/23 23:59 DIRECTED MANUELA Sodium Chloride 0 ml 03/01/23 06:00 Normal Saline Flush 10 Ml Syr IV 03/09/23 23:59 PRN PRN Sodium Chloride 0 ml 03/01/23 06:00 Normal Saline 10 Ml Vial IJ 03/09/23 23:59 DIRECTED PRN Sterile Water 0 ml 03/01/23 06:00 Water,Injection,Sterile 10 Ml Vial IJ 03/09/23 23:59 DIRECTED PRN PFSH Active Problems Active Problems: Problem Status Onset Code Lower urinary tract symptoms (LUTS) R39.9 Closed fracture of left proximal humerus 10/01/19 S42.202A Schizophrenia F20.9 Nicotine abuse Z72.0 Painful orthopaedic hardware ~02/2020 T84.84XA Medical History Medical History Borderline personality disorder Constipation COPD (chronic obstructive pulmonary disease) mild ETOH abuse Hyperlipemia Paranoid schizophrenia Tendinitis of long head of biceps brachii of left shoulder (~09/2019) Surgical History Surgical History (Updated 02/27/23 @ 11:15 by Tia Gonzalez RN) History of surgery ORIF proximal humerus left Tobacco Smoking/Tobacco Use Status: Former Tobacco Use Alcohol Alcohol Intake: never Substance Use Substance use: Never Substance use type: does not use Vital Signs and Lab Results Vital Signs Most Recent Vital Signs in EMR: Most Recent Vital Signs Temp Pulse Resp BP Pulse Ox 36.2 C L 92 H 18 119/94 H 98 03/01/23 06:26 03/01/23 06:26 03/01/23 06:26 03/01/23 06:26 03/01/23 06:26 Lab Results Blood Type / Crossmatch: No Data to Display Complete Blood Count: White Blood Count 7.84 10^3/uL (4.4-10.8) 02/20/23 11:30 Red Blood Count 4.31 10^6/uL (4.36-5.78) L 02/20/23 11:30 Hemoglobin 13.8 g/dL (13.5-17.5) 02/20/23 11:30 Hematocrit 40.3 % (40.0-50.0) 02/20/23 11:30 Platelet Count 215 10^3/uL (130-400) 02/20/23 11:30 Complete Metabolic Panel: No Data to Display Liver Function Panel: No Data to Display Coagulation Panel: No Data to Display Cardiac Panel: No Data to Display Arterial Blood Gas: No Data to Display Venous Blood Gas: No Data to Display Pancreas Panel: No Data to Display Thyroid Panel: No Data to Display Infectious Disease: No Data to Display Blood Cultures: No Data to Display Toxicology Panel: No Data to Display Anesthesia Assessment and Plan Anesthesia History Personal History: No History of Anesthesia Complications Family History: No Family History of Anesthesia Complications Exercise Tolerance Exercise Tolerance: Metabolic Equivalents>4 Pertinent Negatives Pertinent Negatives: No Symptoms of GERD Cardiac & Pulmonary Exam Cardiac Exam: Normal S1/S2 Heart Sounds Pulmonary Exam: Clear Bilateral Breath Sounds Implantable Cardiac Device Does patient have a Pacemaker or an ICD?: No Airway Exam Known Difficult Airway: No Mallampati Class: 2 Mouth Opening: Normal (> 3cm) Thyromental Distance: Greater than 3 cm Neck Range of Motion: Full ROM Neck Circumference: Normal Teeth Condition: Normal Dentition ASA Classification ASA Score: ASA 2 Emergency Case?: No NPO Status NPO Status: NPO Clears >2 hours, Solids >8 hours Anesthesia Plan Resuscitation Status: Full Code Anesthesia Technique: General Anesthesia Airway Planned: Endotracheal Tube Pain Management: Surgeon and patient request nerve block (Left Interscalene Plexus Block) Monitors Used: Standard Monitors
--- NOTE | 2023-03-01 07:15 | DI.RAD_ITS ---
Exam(s) XR SHOULDER LT COMPLETE 2+V EXAM: XR SHOULDER LT COMPLETE 2+V INDICATION: Lt prox hum malunion. COMPARISON: CT CT UPPER EXTREMITY LT WO from 01/15/2023 TECHNIQUE: 2D digital imaging was performed. Two views. Portable FINDINGS: The patient is status post placement of a reverse shoulder prosthesis. The alignment appears [employer] on the images provided. DATA REPOSITORY: RADIATION DOSE DELIVERED:
--- NOTE | 2023-03-01 07:33 | ROE_ITS ---
Date of service: 03/01/23 Time of Service: 07:39 Operative Note Operative Note DATE OF PROCEDURE: 03/01/23 PRE-OP DIAGNOSIS: Left: 1. Proximal humerus malunion 2. Retained proximal humerus ORIF hardware POST-OP DIAGNOSIS: same PROCEDURE: Left: 1. Reverse total shoulder arthroplasty, CPT # 81063 2. Removal of hardware, CPT # 69894 The fish hatchery assistant was medically required as this procedure involves retraction, protection of neurovascular structures, and manipulation of multiple instruments and implants at the same time, which cannot be done without a skilled fish hatchery assistant. SURGEON: Chase Sun RN TRANSPORT: Moustapha Parisi ANESTHESIA TYPE: Local By Surgeon, General LMA/ETT and Primary Nerve Block Refer to Anesthesia Record ESTIMATED BLOOD LOSS: 150 COMPLICATIONS: None Patient was transported to: PACU Implants: [employer] modular glenoid system baseplate 24 mm +2mm LAT [employer] modular glenoid system central post 25 mm [employer] modular glenoid system peripheral locking screws 28 mm inferior, 32 mm superior, 16 mm posterior, 24 mm anterior [employer] modular glenoid system glenosphere 42 +4 mm lateralized [employer] humeral stem 135 degrees size 6 [employer] suture cup size 42 neutral offset [employer] humeral insert size 42 +3 mm constrained Indications: Please see complete medical record for details. Findings: Significant proximal humeral deformity with extensive healed bone anteriorly superiorly and posteriorly. Humeral head softening AVN. Single screw starting to erode in the superior posterior glenoid. Largely healed and intact rotator cuff repair in and around the immense heterotopic bone. Procedure Description: In the operating room, general anesthesia was induced. The patient was positioned beachchair on the operating room table. All bony prominences were well-padded. Preoperative antibiotics were administered. The shoulder was prepped and draped in the usual sterile fashion for shoulder arthroplasty. The correct patient, procedure, and side of the procedure were all verified prior to incision. The deltopectoral approach was preinjected with local anesthetic containing epinephrine and taken to the anterior shoulder. The prior deltopectoral incision was used. There was significant scarring, care was taken to dissect as best possible within the deltoid and pectoralis major muscles. The cephalic vein was not visualized. The deep space anatomy was significantly complicated as expected. There was significant lesser tuberosity bone extending from the proximal humerus well anteriorly and medially to the coracoid. This was carefully exposed at the medial margin of the plate, subscapularis and soft tissue was peeled off of bone working carefully medially and stopping for the co racoid. This bone was then resected in piecemeal and then with a saw to establish a more normal lesser tuberosity size. Similarly posteriorly and distally along the plate soft tissue was resected working on bone and from the plate. The plate and screws were identified with all screws sequentially removed without difficulty. Plate was then removed. Proximal humerus was then smoothed and wraps at the prior hole sites. The significantly deformed proximal humeral head was then quite easily removed in pieces using a rongeur given significant softening. The greater tuberosity was reduced with a rongeur and significant superior posterior scarring was resected as well. Capsule and scar tissue healing releases were completed circumferentially as best possible taking care due to the significantly abnormal anatomy. In this complex case, proximal humerus was prepared first in order to remove any excessive bone prior to doing the glenoid work. The reamers were started as best I can tell based on the abnormal anatomy appropriately centered and down the proximal humeral canal. Given the excessive bone formation posterior superiorly bone had to be removed as well as sequential lateralization and opening of reamers to get through the fracture malunion head autograft site. Correct arm position and reamers were confirmed going up from size 5 to size 6 sunk to what was marked as the old inferior neck medial calcar. Next, the broaches were sequentially used and again lateralized alternating with the reamers as needed going up from size 5 to size 6. There was significant strong bone at the head neck healed malunion junction. Version was done matching his anatomy at 20 degrees for best fit. Metaphyseal control with this size was excellent. The neutral offset guide was used to ream for the suture cup. Abnormal rotator cuff and scar tissue attachment superiorly resected back to the prepared bony margin. Attention was then turned to the glenoid and retractors were placed and a circumferential release as needed to remove soft tissue about the glenoid rim. Care was taken inferiorly to work on bone only between 5 and 7:00 o'clock and bluntly elevate tissues inferiorly. The baseplate guide was placed centrally and the guidepin was inserted and advanced just through the far cortex ensuring adequate central fixation length. Depth gauge was used to confirm length. The glenosphere sizer was used to confirm positioning and glenosphere size. The backside of the baseplate reamer and underside of glenosphere reamers were then used with excellent glenoid preparation. The central post screw was done and removed with the guidewire confirming appropriate depth. The baseplate was impacted and fully compressed onto the glenoid surface. The locking guide was then used to drill and place appropriately lengthed inferior, superior, anterior, and posterior screws. The [id number] reamer was used to confirm adequate peripheral reaming. The glenosphere was applied with the telesales professional and then impacted to engage the Gonzalez taper. It was then locked with appropriate countersinking of the setscrew. The glenosphere was inspected and found to have good fit, appropriate positioning, and no soft tissue or bony impingement. Attention was then turned back to the proximal humerus, which was delivered from the wound and maintained in external rotation. The last used broach and suture cup were reinserted. Trialing was commenced with +3 mm liner. The shoulder was reduced and taken through range of motion, with excellent tension and stability. Tension was more significant on the posterior superior rotator cuff remnant. The conjoined had moderate tension. The deltoid was less tense. The reduction and dislocation were difficult indicating no need for additional length or offset. No bony impingement through wide range of motion. The subscapularis released from the far medialized abnormal lesser tuberosity did not have any reduction over the prepared construct. The trial components were removed from the proximal humerus. The wound was copiously irrigated with normal saline. The the proximal humeral stem and suture cup were assembled and brought over the proximal humerus. A small amount of vancomycin powder was distributed in the proximal humerus. The humeral component and suture cup were impacted into place. The final liner +3 mm constrained was then connected, and range of motion, stability, and tension confirmed and excellent. Constrained was chosen due to the highly abnormal anatomy, potential for future posterior superior rotator cuff failure and then devoid soft tissue constraint given the lack of subscapularis. Constraint was also unlikely to limit range of motion. The shoulder was copiously irrigated with Betadine and normal saline. Vancomycin powder was distributed deeply about the shoulder and through subcutaneous tissues. The deltoid interval was well approximated. Subcutaneous tissue was irrigated then closed using 2-0 Monocryl in a buried interrupted fashion. Skin was closed using 3-0 Monocryl in a buried subcuticular fashion. Skin glue was applied to the incision. A silver impregnated bandage was placed over the incision. The extremity was placed into a shoulder immobilizer. The patient awoke from anesthesia without complication and was taken to the recovery room in stable condition.
--- NOTE | 2023-03-01 07:33 | PGE_ITS ---
Date of Service Date of service: 03/01/23 Time of Service: 14:54 Assessment and Plan Assessment and plan (1) Closed fracture of left proximal humerus: Status: Acute Assessment and plan: 57-year-old male postop day #0 status post left shoulder complex revision proximal humerus malunion to reverse total shoulder arthroplasty Left shoulder sling when out of bed. Off when resting in bed or chair with forearm supported on pillow. Encourage range of motion elbow wrist and hand. Nonweightbearing left shoulder. Gentle active range of motion okay. Pain control- multimodal SCDs and/or SONIDO hose bilateral lower extremity ASA 81 mg daily for 7 days as DVT prophylaxis starting tomorrow morning Keep dressings in place and clean and dry until follow-up Anticipate discharge home in tomorrow after completing observation Follow-up outpatient with Dr. Sun at [facility] orthopedics in 10-14 days as scheduled Qualifiers: Encounter type: initial encounter Fracture alignment: displaced Fracture morphology: other fracture Qualified Code(s): S42.292A - Other displaced fracture of upper end of left humerus, initial encounter for closed fracture Subjective Subjective Interval history since last seen: 57 year old male post-op day #0 status post left shoulder complex revision proximal humerus malunion to reverse total shoulder arthroplasty. Patient reports that pain is well-controlled. Using ice pack on his shoulder. He reports that he has not been able to perform any active motion of his left upper extremity yet. He reports that he has not urinated yet. Exam Narrative Exam Narrative: Patient resting comfortably in bed with left upper extremity propped up on a pillow. Unable to demonstrate active motion of the fingers. Sensation of the fingers intact to light touch. Numb in the axillary nerve distribution. 2+ radial pulse. Brisk capillary refill. Objective Last Vital Signs Temp 97.0 F L 03/01/23 07:18 Pulse 79 03/01/23 07:18 Resp 18 03/01/23 07:18 BP 119/91 H 03/01/23 07:18 Pulse Ox 96 03/01/23 07:18 Time Spent with Patient Time Spent with Patient: <25 minutes Time was spent: preparing to see the patient(eg.review tests), indepentently interpreting results and counseling the patient
--- NOTE | 2023-03-01 07:33 | DSE_ITS ---
Date of service: 03/02/23 Time of Service: 07:28 DS: Diagnosis Discharge Diagnosis (1) Closed fracture of left proximal humerus: Status: Acute (2) Painful orthopaedic hardware: Status: Acute Discharge Plan Discharge Details Reason For Visit: Left Proximal HUmerus Malunion Admit Date/Time: 03/01/23 07:23 Admit Provider: Chase Sun Attending Provider: Chase Sun Primary Care Provider: Vaibhav Brock [place] Meds and New Rx's Prescriptions: New aspirin 81 mg tablet,delayed release (DR/EC) 81 mg PO DAILY 7 Days Qty: 7 0RF naproxen 250 mg tablet 250 - 500 mg PO BID PRN (Reason: Moderate pain) Qty: 40 0RF oxycodone-acetaminophen [Percocet] 5-325 mg tablet 1 - 2 tab PO Q4H MDD 30 mg PRN (Reason: Moderate to severe pain) Qty: 18 0RF No Action atorvastatin 20 mg tablet 20 mg PO HS alfuzosin 10 mg tablet extended release 24 hr 10 mg PO DAILY Qty: 90 4RF Rx Instructions: administer after the same meal each day - to be used in stead of tamsulosin Myrbetriq 25 mg tablet extended release 24 hr 25 mg PO DAILY Qty: 30 12RF carbamazepine 200 mg Tablet 200 mg PO BID ondansetron 4 mg tablet,disintegrating 4 mg PO TID PRN (Reason: nausea and vomiting) Qty: 10 0RF diphenhydramine HCl [Benadryl] 25 mg Capsule 25 - 50 mg PO Q6H PRN ibuprofen 400 mg Tablet 400 mg PO TID PRN loperamide 2 mg Tablet 2 - 4 mg PO PRN PRN magnesium hydroxide [Milk of Magnesia] 400 mg/5 mL Suspension 5 - 15 ml PO PRN PRN Cerovite Senior Tablet 1 tab PO QAM cholecalciferol (vitamin D3) [Vitamin D3] 400 unit Tablet 800 unit PO QAM docusate sodium [Dulcolax Stool Softener (dss)] 100 mg capsule 100 mg PO DAILY Qty: 30 2RF alum-mag hydroxide-simeth [Mylanta Maximum Strength] 400-400-40 mg/5 mL Suspension 15 - 30 ml PO QID PRN amantadine HCl 100 mg Capsule 100 mg PO BID acetaminophen 325 MG tablet 650 mg PO PRN PRN (Reason: Discomfort) polyethylene glycol 3350 17 GM powder in packet 17 gm PO DAILY clonazepam 0.5 MG tablet 0.5 mg PO BID Patient Comments: 0.5mg-2mg PRN- max dose of 3mg Q24hrs propranolol 60 MG tablet 60 mg PO BID Patient Comments: Hold for pulse <50 pantoprazole 40 MG tablet,delayed release (DR/EC) 40 mg PO DAILY buspirone 10 MG tablet 20 mg PO QAM risperidone 4 MG tablet,disintegrating 6 mg PO HS clozapine [Clozaril] 100 mg Tablet 500 mg PO QPM clozapine [Clozaril] 100 mg Tablet 300 mg PO QAM clonazepam 0.5 mg Tablet 0.5 - 1 mg PO PRN MDD 2mg PRN calcium carbonate [Tums 500] 500 mg calcium (1,250 mg) Tablet,Chewable 500 - 1,000 mg PO Q4H PRN Discharge Instructions Additional Instructions: Surgery: Left complex revision Reverse total shoulder arthroplasty (constrained liner) with hardware removal for proximal humerus ORIF malunion with AVN Activity: Do not lift anything heavier than a coffee. You should keep your arm at your side in a neutral position most of the time except for gentle range of motion exercises, physical therapy, and essential activities. You should use the sling whenever you are out of the house. You may have to adjust the abduction pillow or remove it for comfort. At home it is best to remove the sling and rest the arm on a pillow at your side or support the operative side with your other hand. A physical therapy prescription will be sent electronically to start in about 3 weeks. MODIFIED reverse TSA Protocol: IMMEDIATE GENTLE ACTIVE range of motion okay Postoperative Weeks 0-6 ?Immobilization: Sling may be removed for therapeutic exercises, resting in bed or chair, and bathing ?Motion exercises: Pendulum exercises, elbow range- of-motion exercises, wrist [id number] exercises, and floor coverer apprentice strengthening ?Restrictions: No active internal rotation or backwards extension Postoperative Weeks 6-12 ?Immobilization: Sling discontinued ?Motion exercises: Shoulder passive range of motion, advancing to active- assisted range of motion, and finally active range of motion with a goal of forward flexion to 90? and external rotation of 20? ?Strengthening exercises: Light, resisted forward flexion, external rotation, and abduction limited to isometric exercises and therapy bands with concentric motions only. Continue floor coverer apprentice strengthening ?Restrictions: No resisted internal rotation or backwards extension. No scapular retraction exercises with therapy bands Postoperative Months 3-12 ?Motion exercises: Increase [id number] exercises to achieve full motion, with passive stretching at end ranges ?Strengthening: Begin resisted, internal rotation and backwards extension initially with isometric exercises advancing to light therapy bands and then weights. Advance other shoulder strengthening exercises to include the rotator cuff, deltoid, and scapular stabilizers. Advance to functional strengthening, including plyometric exercises and core strengthening. Prescriptions: Aspirin 81 mg take 1 daily to prevent a blood clot for 2 weeks Naproxen 250 mg take 1-2 every 12 hours with a meal as needed for moderate pain Oxycodone-acetaminophen 5-325 mg take 1-2 every 4-6 hours as needed for severe pain (contains Tylenol) You may use [id number] Tylenol (acetaminophen) as needed for mild pain. These pain medications may be taken all at once or in different combinations as needed. Also, recommend Colace (docusate) as a stool softener as surgery and pain medicine cause constipation. You may try [id number]-[id number] diphenhydramine (Benadryl) 25-50 mg nightly as a sleep aid Dressings: Leave dressing in place until follow-up. Keep clean and dry at all times. No showers please. Follow-up: 10-[address] Sun You may take off the leg compression stockings this evening at home. You may also leave them on a few days longer if you have a history of leg swelling or edema. Please call the office during business hours with any questions or concerns. Let us know right away if you develop any redness, drainage, fevers, chest pain, or trouble breathing. Do not drink alcohol or drive for at least 24 hours after anesthesia. DS: Summary Time Spent with Patient providing and/or coordinating discharge services: Less than 30 minutes Status at Discharge Functional status at discharge: independent ambulation Overall status at discharge: patient is progressing back to baseline Mental Status: mental status grossly normal (Baseline) Speech and Movement: speech and movement normal (Except for surgical) Mood: congruent mood (Baseline) Affect: normal affect (Baseline) Exam Narrative Exam Narrative: Comfortable, awake, cognitively at baseline, interactive and appropriately asking and answering questions Left shoulder moderate generalized edema with early kilo-incisional ecchymosis. Dull sensation about axillary nerve distribution. Largely intact sensation remainder of arm forearm wrist and hand. Tolerates gentle passive circumduction about the shoulder without difficulty. Demonstrates active motor except for elbow flexion and forearm supination. Unable to activate biceps. Will monitor and presume it is still from nerve block. Moderate strength able to demonstrate thumb extension, wrist extension, finger floor coverer apprentice and wrist flexion, and elbow extension. Psych Mental Status: mental status grossly normal (Baseline) Speech and Movement: speech and movement normal (Except for surgical) Mood: congruent mood (Baseline) Affect: normal affect (Baseline) DS: Data Vitals/I&O Vitals and I&O: Vital Signs Temperature 97.0 F L 03/01/23 07:18 Temperature Source Tympanic 03/01/23 07:18 Pulse 79 03/01/23 07:18 Pulse Rhythm Regular 03/01/23 06:26 Respiratory Rate 18 03/01/23 07:18 Blood Pressure 119/91 H 03/01/23 07:18 Blood Pressure Mean 100 03/01/23 07:18 Pulse Oximetry 96 03/01/23 07:18 Oxygen Delivery Method Room Air 03/01/23 07:18 Oxygen Flow Rate 0 03/01/23 07:18 Pain Level 0 03/01/23 07:18 Comment Time out performed prior to block procedure. VS WNL pre and post . Medication given by Estelita see report. Pt Alert and oriented slightly sleepy due to Versed given prior to procedure. start 7:18-7:25 end time. Left arm protected. 03/01/23 07:18 Intake & Output 02/28/23 02/28/23 03/01/23 11:59 23:59 11:59 Weight 205 lb 0.478 oz PFSH All Active Problems Lower urinary tract symptoms (LUTS) (Acute) Closed fracture of left proximal humerus (Acute 10/01/19) S/P ORIF 10/16/2019 Schizophrenia (Chronic) Nicotine abuse (Acute) Painful orthopaedic hardware (Acute ~02/2020) Medical History Borderline personality disorder Constipation COPD (chronic obstructive pulmonary disease) mild ETOH abuse Hyperlipemia Paranoid schizophrenia Tendinitis of long head of biceps brachii of left shoulder (~09/2019) Surgical History History of surgery ORIF proximal humerus left Social History Smoking/Tobacco Use Status: Former Tobacco Use Quit Date: 02/09/20 Smoking risk assessment performed?: Yes Alcohol Intake: never Drug use: Never Substance use type: does not use Current gender identity: male Do you feel safe at home: Yes Additional Social history: [facility] resident, Time Spent with Patient Time Spent with Patient: <45 minutes Time was spent: preparing to see the patient(eg.review tests), obtaining and/or reviewing separately otained hiistory, ordering medications,tests, procedures, indepentently interpreting results, counseling the patient and care coordination
[2023-03-01] MEDS: ceFAZolin 2 GM/50 ML BAG IVPB ×2 (07:41→10:41)
--- NOTE | 2023-03-01 08:39 | W.ANESNERVE ---
Nerve Block Single Injection Procedure Date and Time Date Performed: 03/01/23 Procedure Start: 07:15 Location Where Procedure Performed Procedure Location: Day Surgery Unit Reason Performed: Postoperative Analgesia Requesting Provider: Chase Sun Timeout Performed Timeout Performed: Yes Monitoring Used ECG, Blood Pressure, SpO2, ETCO2 and See EMR for corresponding vital signs Sterility Sterility: Hand Hygiene, Surgical Cap, Surgical Mask, Sterile Gloves, Eye Protection and Chlorhexidine Sedation Given During Procedure Sedation Given (Indicate Dose Given): Versed IV (IVP) Dose:: 3mg Patient Mental Status Patient Mental Status: Sedate with meaningful communication Nerve Block 1st Nerve Block: Laterality: Left Block Type: Interscalene Ultrasound Image Saved?: Yes Needle / Catheter Used: 80mm SonoPlex II Local Anesthetic Bolus (Indicate Dose Given): Lidocaine used for local infiltration of skin, Injected in 3-5ml increments after negative blood aspiration, Exparel Dose:: 10cc (133mg) and Bupivacaine 0.5% with Epinephrine (1:200,000) Dose:: 12cc/0.5% (60mg) Additives (Indicate Dose Given): Decadron Dose:: 4mg Ultrasound: Sterile probe cover and gel used Nerve Stimulator: Not Used Paresthesia: None Procedure Tolerated: No Complications and Patient tolerated well Procedure Outcome: Successful Performed By: Lj Pal
[2023-03-01] MEDS: Droperidol 5 MG/2 ML VIAL 0.625 MG IVP (13:06)
--- NOTE | 2023-03-01 13:10 | W.ANESPOSTOP ---
Postoperative Evaluation Date, Time and Location Date Performed: 03/01/23 Time Performed: 13:10 Patient Location: PACU Vital Signs Most Recent Imported Vital Signs: Most Recent Vital Signs Temp Pulse Resp BP Pulse Ox 36.4 C L 73 21 114/77 100 03/01/23 12:58 03/01/23 12:58 03/01/23 12:58 03/01/23 12:58 03/01/23 12:58 Pain Score Most Recent Pain Score: Most Recent Pain Score Pain Level 0 03/01/23 07:18 Assessment Mental Status: Awake (Alert & Oriented to Patient Baseline) Airway and Respiratory Function: Patent airway with normal (patient baseline) respiratory exam Cardiovascular Function: Hemodynamically Stable Hydration Status: Adequately Hydrated Nausea & Vomiting: Active Nausea or Vomiting Present (active nausea, no vomiting.) Nausea and Vomiting Management: Other Pain: Pt. Denies Any Pain Peripheral Nerve Block: Regional nerve block not resolved at time of post operative discharge
[2023-03-01] MEDS: Naproxen 250 MG TAB PO (16:30)
--- NOTE | 2023-03-01 17:02 | PT.INIE ---
PT Notes Visit Reasons: Left Proximal HUmerus Malunion Physical Therapy Inpatient Initial Evaluation Date: 03/01/2023 Referring Doctor: Chase Sun MD PT Orders: PT CONSULT: S/P Ortho surgery Precautions: Fall. Standard. Activity as tolerated. Patient Profile/Admitting Diagnosis: Real is a 57-year-old male with painful L proximal humeral ORIF orthopedic hardware with malunion and slowly progressing osteonecrosis. Patient is status post reverse left total shoulder arthroplasty on postoperative day 0. PMHX: All Active Problems? Lower urinary tract symptoms (LUTS) (Acute) Closed fracture of left proximal humerus (Acute 10/01/19) S/P ORIF 10/16/2019 Schizophrenia (Chronic) Nicotine abuse (Acute) Painful orthopaedic hardware (Acute ~02/2020) Medical History? Borderline personality disorder Constipation COPD (chronic obstructive pulmonary disease) mildETOH abuse Hyperlipemia Paranoid schizophrenia Tendinitis of long head of biceps brachii of left shoulder (~09/2019) Surgical History?(Updated 02/27/23 @ 11:15 by Tia Gonzalez RN) History of surgery ORIF proximal humerus left Social History/Home Situation: [facility] in a [facility]. All mobility ADL performance with no assistive device. No falls in the past year. Equipment Owned/DME: None Subjective: Numb in the L UE. Doubtful about being able to stand up but after reassurance from PT and Nurse Alvarado, patient was able to walk from bedside to the bathroom to void urine. Nurse Alvarado encouraged patient to use bathroom to help with BP increase. Objective: General Observation: Resting in bed. L arm on pillow. Mepilex Ag over surgical incision. Mental Status: Alert and oriented as to person, place, time, and purpose. Able to pay attention, focus, and respond appropriately. Pain: None reported Vital Signs: Per Nurse Alvarado, patient has had an increased BP in the last 2 hours ROM: Left Upper Extremity: Unable to ACTIVELY move shoulder, elbow, and wrist on all planes due to late effects of anesthesia, will reassess tomorrow morning. Able to tolerate passive shoulder flexion and abduction of up to about 45 degrees. Hand opening and closing absent. Strength: Left Upper Extremity: Shoulder flexors 1/5. Shoulder abductors 1/5. Elbow flexors 0/5. Elbow extensors 0/5. Clinical Exercise Specialist absent. Bed Mobility/Transfers: Supine to sit minimal assist Sit to stand minimal assist Stand to sit minimal assist Bed to toilet seat minimal assist Toilet seat to bedside chair contact guard assist Gait: Doubtful about being able to stand up. Instructed patient with level surface ambulation of 15 feet + 15 feet requiring minimal to the bathroom and just contact guard assist from the bathroom back to chair. Denies headache, chest pain, and lightheadedness throughout. Balance: Static Sitting: Normal Dynamic Sitting: Normal Static Standing: Good Dynamic Standing: Good THERA EX: Able to do shoulder shrugs x 10 Attempted gentle shoulder movement but unable to at this time Special Tests: Mobility Limitations Standardized Measure [facility] AM-PAC 6 clicks Basic Mobility Inpatient Short Form: Raw Score: 18 CMS Score: 47% deficit Informed Consent/Education: Patient was instructed in purpose of PT consult and plan of care. Agreeable to proceed with established PT POC to achieve personal goals. Assessment: Patient was assisted out of bed and helped to walk from bedside to bathroom and back. He was then helped to sit on bedside recliner prepared by this PT and Nurse Jenny for him. Shoulder AROM limited by acute effect from anesthesia, will re-assess first thing tomorrow morning. Will ensure that conversation/training is done with primary caregiver regarding gentle exercises patient can safely do at home. Patient presents with clinical signs and symptoms consistent with current/admitting diagnoses that have resulted to mobility limitations, gait instability, generalized weakness, and overall ADL decline as demonstrated by the following impairment level findings: 1. Decreased strength to L shoulder major muscle groups 2. Impaired standing balance 3. Impaired activity tolerance 4. Limitation of joint range of motion in L UE joints Impairments are contributing to the following functional limitations: 1. Decline in bed mobility skills 2. Decline in transfer skills 3. Difficulty with ambulation without physical assistance 4. Increased completion time for mobility ADL performance 5. Increased risk for falls Patient is assessed as a 69326 moderate complexity based on the following: History: 57-year-old male with past medical history as indicated above Examination: Demonstrable impairment in strength, balance, and mobility level with underlying impairments and functional limitations as exhibited above as well as deficit score of 47% utilizing the [facility] Mobility Inpatient Short Form Presentation: Evolving Decision Makin moderate complexity Goals: Goals X1 week 1. Supine-Sit independent 2. Sit-Supine independent 3. Sit-Stand independent 4. Stand-Sit independent with no AD 5. Bed-Chair independent with no AD 6. Chair-Bed independent with no AD 7. Independent gait on level surface with use of no AD for at least 300 feet without report of pain nor dyspnea 9. Supervision with home exercise program 10. Normal static and dynamic standing balance/tolerance Plan of Care/Treatment Plan: 1-2x/day, 7 days/week x 1 week. Plan of care has been reviewed with the EDITING INTERNSHIP providing the service under Physical Therapy direction. Initiate Physical Therapy intervention for pain management as needed, strengthening, bed mobility, transfers, gait, stairs, balance training, and use of assistive device. DISCHARGE RECOMMENDATIONS: [] Home with no services [] [] Home with services [specify] [X] Home with outpatient PT. Home when medically cleared by orthopedic surgeon. Recommend outpatient PT services in order to optimize ADL performance and functional mobility outcomes. [] SNF for continued rehabilitation [] [] Direct Response Consultant Care [] [] SNF versus LTC based on ability to participate and progress [] TREATMENT CODE/TIME: 08674 x 26 minutes beginning at 16:27 PM. Thank you for the opportunity to participate in the care of this patient. Zeenat Tobin PT, DPT, CLT [facility] [place], [place]
[2023-03-01] MEDS: ceFAZolin 1 GM/50 ML BAG IVPB (17:37)
[2023-03-01] MEDS: carBAMazepine 200 MG TAB PO (19:45)
[2023-03-01] MEDS: clonazePAM 0.5 MG TAB PO (19:45)
[2023-03-01] MEDS: Propranolol 20 MG TAB 60 MG PO (22:23)
[2023-03-01] MEDS: Atorvastatin 20 MG TAB PO (22:23)
[2023-03-02] MEDS: Normal Saline Flush 10 ML SYR IV ×2 (02:25→03:05)
[2023-03-02] MEDS: ceFAZolin 1 GM/50 ML BAG IVPB ×2 (02:25→09:21)
[2023-03-02 03:00] VITALS: BP 144/98; PULSE 91; RESP 12; TEMP 35.4; O2SAT 98
[2023-03-02 07:17] VITALS: BP 115/83; PULSE 84; RESP 16; TEMP 36.2; O2SAT 98
[2023-03-02] MEDS: Acetaminophen 500 MG TAB 1000 MG PO (08:12)
[2023-03-02] MEDS: clonazePAM 0.5 MG TAB PO (08:12)
[2023-03-02] MEDS: Polyethylene Glycol 3350 17 GM PACKET PO (08:12)
[2023-03-02] MEDS: Mirabegron 25 MG TABCR PO (08:13)
[2023-03-02] MEDS: carBAMazepine 200 MG TAB PO (08:13)
[2023-03-02] MEDS: busPIRone 5 MG TAB 20 MG PO (08:13)
[2023-03-02] MEDS: Pantoprazole 40 MG TABCR PO (08:14)
[2023-03-02] MEDS: Aspirin E.C. 81 MG TABEC PO (09:04)
[2023-03-02] MEDS: Propranolol 20 MG TAB 60 MG PO (09:04)
--- NOTE | 2023-03-02 09:05 | PT.INTREAT ---
PT Notes Visit Reasons: Left Proximal HUmerus Malunion Physical Therapy Inpatient Treatment Note Date : 03/02/2023 Precautions: Fall. Standard. Per Dr. Sun--Left shoulder sling when out of bed.? Off when resting in bed or chair with forearm supported on pillow.? Encourage range of motion elbow wrist and hand. Nonweightbearing left shoulder.? Gentle active range of motion okay. Subjective: Motivated to get up today. Lightheaded after walking back to room from therapy room. Patient states that Herb from [facility] is picking him up at 10 AM today to go home. Objective: General Observation: Resting in bed.? Sling on L UE. ? Mepilex Ag over surgical incision. Mental Status: Alert and oriented as to person, place, time, and purpose.? Able to pay attention, focus, and respond appropriately. Pain: None reported Vital Signs: Per Nurse Jenny,? patient has had an increased BP in the last 2 hours ROM: Left Upper Extremity:? Shoulder flexion up to 45 degrees actively. Shouder abduction up to 30 degrees actively. Unable to bend the elbow actively. Able to minimally close hand. Strength: Left Upper Extremity: Shoulder flexors 3-/5. Shoulder abductors 3-/5. Elbow flexors 1/5. Elbow extensors 1/5. Universal Grinder Tool weak and non-functional. Bed Mobility/Transfers: Supine to sit stand by assist with HOB 30 degrees Sit to stand stand by assist Stand to sit stand by assist Gait: 150 feet + 150 feet using no AD, sling not put on to allow for partial pendulum exercises while walking. Vital signs after first walk-- BP 126/87 mmHg, O2 sat 100% on RA, HR 101 bpm. Reported being mildly lightheaded after return to room. Nurse Vivi eugene who said she will monitor patient closely. Balance: Static Sitting: Normal Dynamic Sitting: Normal Static Standing: Good Dynamic Standing: Good THERA EX: Active shoulder flexion to about 45 degrees x 10 Active shoulder abduction to about 30 degrees x 10 Hand squeeze x 10 PATIENT EDUCATION?TRAINING: Printed off HEP as follows and will be discussed with caregiver at [facility] facility before discharge today: Access Code: [email or web address] URL: [email or web address] Date: 03/02/2023 Prepared by: Zeenat Tobin Exercises - Supine Shoulder Flexion AAROM with Hands Clasped - 1 x daily - 7 x weekly - 1 sets - 10 reps - 5 hold - Seated Shoulder Abduction PROM with Caregiver - 1 x daily - 7 x weekly - 1 sets - 10 reps - 5 hold - Seated Shoulder External Rotation and Internal Rotation PROM with Caregiver - 1 x daily - 7 x weekly - 1 sets - 10 reps - 5 hold - Seated Wrist Flexion and Extension PROM with Caregiver - 1 x daily - 7 x weekly - 1 sets - 10 reps - 5 hold - Hand Strengthening Tip Pinch With Foam - 1 x daily - 7 x weekly - 1 sets - 10 reps - 5 hold Assessment: Reports decreasing numbness in L UE. Now able to squeeze minimally with L hand. Plan of Care/Treatment Plan: 1-2x/day, 7 days/week x 1 week. Plan of care has been reviewed with the SENIOR BUSINESS INTELLIGENCE ANALYST providing the service under Physical Therapy direction. Initiate Physical Therapy intervention for pain management as needed, strengthening, bed mobility, transfers, gait, stairs, balance training, and use of assistive device. DISCHARGE RECOMMENDATIONS: [] ? Home with no services [] [] ? Home with services [specify] [X] ? Home with outpatient PT.? Home when medically cleared by orthopedic surgeon.? Recommend outpatient PT services in order to optimize ADL performance and functional mobility outcomes. [] ? SNF for continued rehabilitation [] [] ? Utility Worker Film Processing Care [] [] ? SNF versus LTC based on ability to participate and progress [] TREATMENT CODE/TIME: 67202 x 27 minutes beginning at 8:46 AM.
--- NOTE | 2023-03-08 09:16 | PT.INDS ---
Date of service: 03/02/23 PT Notes Visit Reasons: Left Proximal HUmerus Malunion Physical Therapy Inpatient Discharge Summary Date : 03/02/2023 Date of service: 03/01/2023 through 03/02/2023 This is a clinical summary of care provided for the duration of dates listed above. No charge was made in the completion of this documentation. Precautions: Fall. Standard.?Per Dr. Sun--Left shoulder sling when out of bed.? Off when resting in bed or chair with forearm supported on pillow.? Encourage range of motion elbow wrist and hand.? Nonweightbearing left shoulder.? Gentle active range of motion okay. Subjective: Motivated to get up today.? Lightheaded after walking back to room from therapy room.? Patient states that Herb from [facility] [place] picking him up at 10 AM today to go home. Objective: General Observation: Resting in bed.? Sling on L UE. ? Mepilex Ag over surgical incision. Mental Status: Alert and oriented as to person, place, time, and purpose.? Able to pay attention, focus, and respond appropriately. Pain: None reported Vital Signs: Per Nurse Alvarado,? patient has had an increased BP in the last 2 hours ROM: Left Upper Extremity:? Shoulder flexion up to 45 degrees actively.? Shouder abduction up to 30 degrees actively.? Unable to bend the elbow actively.? Able to minimally close hand. Strength: Left Upper Extremity: Shoulder flexors 3-/5. Shoulder abductors 3-/5. Elbow flexors 1/5. Elbow extensors 1/5. 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 Bed Mobility/Transfers: Supine to sit stand by assist with HOB 30 degrees Sit to stand stand by assist Stand to sit stand by assist Gait: 150 feet + 150 feet using no AD,? sling not put on to allow for partial pendulum exercises while walking.? Vital signs after first walk-- BP 126/87 mmHg,? O2 sat 100% on RA,? HR 101 bpm. Reported being mildly lightheaded?after?return to room.? Nurse Vivi eugene who said she will monitor patient closely. Balance: Static Sitting: Normal Dynamic Sitting: Normal Static Standing: Good Dynamic Standing: Good THERA EX: Active shoulder flexion to about 45 degrees x 10 Active shoulder abduction to about 30 degrees x 10 Hand squeeze x 10 PATIENT EDUCATION?TRAINING: Printed off HEP as follows and will be discussed with caregiver at [facility] facility before discharge today: Access Code: [email or web address] URL: [email or web address] Date: 03/02/2023 Prepared by: Zeenat Tobin Exercises - Supine Shoulder Flexion AAROM with Hands Clasped? - 1 x daily - 7 x weekly - 1 sets - 10 reps - 5 hold - Seated Shoulder Abduction PROM with Caregiver? - 1 x daily - 7 x weekly - 1 sets - 10 reps - 5 hold - Seated Shoulder External Rotation and Internal Rotation PROM with Caregiver? - 1 x daily - 7 x weekly - 1 sets - 10 reps - 5 hold - Seated Wrist Flexion and Extension PROM with Caregiver? - 1 x daily - 7 x weekly - 1 sets - 10 reps - 5 hold - Hand Strengthening Tip Pinch With Foam? - 1 x daily - 7 x weekly - 1 sets - 10 reps - 5 hold Assessment: Reports decreasing numbness in L UE.? Now able to squeeze minimally with L hand.? Goals: Goals X1 week 1. Supine-Sit independent NOT MET 2. Sit-Supine independent NOT MET 3. Sit-Stand independent NOT MET 4. Stand-Sit independent with no AD NOT MET 5. Bed-Chair independent with no AD NOT MET 6. Chair-Bed independent with no AD NOT MET 7. Independent gait on level surface with use of no AD for at least 300 feet without report of pain nor dyspnea NOT MET 9. Supervision with home exercise program NOT MET 10. Normal static and dynamic standing balance/tolerance NOT MET DISCHARGE RECOMMENDATIONS: [] ? Home with no services [] [] ? Home with services [specify] [X] ? Home with outpatient PT.? Home when medically cleared by orthopedic surgeon.? Recommend outpatient PT services in order to optimize ADL performance and functional mobility outcomes. [] ? SNF for continued rehabilitation [] [] ? Construction Quality Control Manager Care [] [] ? SNF versus LTC based on ability to participate and progress [] TREATMENT CODE/TIME: [place] Thank you for the opportunity to participate in the care of this patient. Zeenat Tobin PT, DPT, CLT [facility] [place], [place]
== END 2023-03-02 11:51 | disposition home or self-care (01) ==
LOC: MS 14:22
PROVIDERS: Admitting Provider Student in an Organized Health Care Education/Training Program; PCP Internal Medicine; Visit Provider Student in an Organized Health Care Education/Training Program
PROC: (CPT 23472; principal; 2023-03-01 07:30)
PROC: (CPT 23472; 2023-03-01 07:30)
DX: S42.292P Other displaced fracture of upper end of left humerus, subsequent encounter for fracture with malunion (principal); T84.84XA Pain due to internal orthopedic prosthetic devices, implants and grafts, initial encounter; M87.822 Other osteonecrosis, left humerus; J44.9 Chronic obstructive pulmonary disease, unspecified; K59.00 Constipation, unspecified; F60.3 Borderline personality disorder; F20.0 Paranoid schizophrenia; F10.10 Alcohol abuse, uncomplicated; F17.210 Nicotine dependence, cigarettes, uncomplicated
CPT/HCPCS: 23472; 20680; 76942; 96365; 97110; 97162; 97530; 73030; C1781; G0378; J0171; J0690; J1100; J1790; J1885; J2001; J2250; J2371; J2405; J2704

== ENCOUNTER 2023-03-14 10:59 | Outpatient (CLI) | payer MEDICAID, SELFPAY ==
--- NOTE | 2023-03-14 10:45 | DI.RAD_ITS ---
Exam(s) XR SHOULDER LT COMPLETE 2+V EXAM: XR SHOULDER LT COMPLETE 2+V INDICATION: F/U LEFT RTSA. COMPARISON: CR XR SHOULDER LT COMPLETE 2+V from 03/01/2023 TECHNIQUE: 2D digital imaging was performed. Two views. FINDINGS: There has been no change in the alignment of the reverse shoulder prosthesis. No abnormal surroundin g bony lucencies are seen. Small amount of residual postsurgical air remains present in the soft tis sues. DATA REPOSITORY: RADIATION DOSE DELIVERED:
== END 2023-03-14 11:00 | disposition home or self-care (01) ==
LOC: DIORS 10:59
PROVIDERS: PCP Internal Medicine; Referring Provider Internal Medicine; Visit Provider Student in an Organized Health Care Education/Training Program
DX: S42.292D Other displaced fracture of upper end of left humerus, subsequent encounter for fracture with routine healing (principal); T84.84XD Pain due to internal orthopedic prosthetic devices, implants and grafts, subsequent encounter; X58.XXXD Exposure to other specified factors, subsequent encounter; Z98.890 Other specified postprocedural states
CPT/HCPCS: 73030

== ENCOUNTER 2023-03-20 20:12 | Outpatient (REF) | payer MEDICAID, SELFPAY ==
[2023-03-20 19:41] LABS: Abs Immature Grans 0.01 10^3/uL (0.0-0.06); Absolute Basophil Count 0.04 10^3/uL (0.0-0.2); Absolute Eosinophil Count 0.22 10^3/uL (0.0-0.7); Absolute Lymphocyte Count 1.74 10^3/uL (1.2-3.4); Absolute Monocyte Count 0.58 10^3/uL (0.1-0.8); Absolute Neutrophil Count 3.36 10^3/uL (1.2-6.7); Basophils % 0.7; Eosinophils % 3.7; HCT 32.6 % (40.0-50.0); HGB 11.2 g/dL (13.5-17.5); Immature Grans % 0.2; Lymphocytes % 29.2; MCH 32.7 pg (27.0-33.0); MCHC 34.4 % (32.0-36.0); MCV 95 fL (80-95); MPV 9.5 fL (8.0-11.0); Monocytes % 9.7; Neutrophils % 56.5; Platelet Count 316 10^3/uL (130-400); RBC 3.42 10^6/uL (4.36-5.78); RDW-SD 48.8 fL; WBC 5.95 10^3/uL (4.4-10.8)
== END 2023-03-20 20:13 | disposition home or self-care (01) ==
LOC: NCHCN 20:12
PROVIDERS: PCP Internal Medicine; Visit Provider Internal Medicine
DX: F20.0 Paranoid schizophrenia (principal); Z79.899 Other long term (current) drug therapy
CPT/HCPCS: 85025

== ENCOUNTER 2023-04-18 11:44 | Outpatient (REF) | payer MEDICAID, SELFPAY ==
[2023-04-18 21:34] LABS: Abs Immature Grans 0.01 10^3/uL (0.0-0.06); Absolute Basophil Count 0.06 10^3/uL (0.0-0.2); Absolute Eosinophil Count 0.31 10^3/uL (0.0-0.7); Absolute Lymphocyte Count 2.28 10^3/uL (1.2-3.4); Absolute Monocyte Count 0.69 10^3/uL (0.1-0.8); Absolute Neutrophil Count 4.13 10^3/uL (1.2-6.7); Basophils % 0.8; Eosinophils % 4.1; HCT 38.4 % (40.0-50.0); Immature Grans % 0.1; Lymphocytes % 30.5; MCH 31.6 pg (27.0-33.0); MCHC 33.9 % (32.0-36.0); MCV 93 fL (80-95); Monocytes % 9.2; Neutrophils % 55.3; Platelet Count 226 10^3/uL (130-400); RBC 4.11 10^6/uL (4.36-5.78); RDW 13.2 % (11.8-14.1); RDW-SD 45.1 fL; WBC 7.48 10^3/uL (4.4-10.8)
== END 2023-04-18 11:45 | disposition home or self-care (01) ==
LOC: NCHCN 11:44
PROVIDERS: PCP Internal Medicine; Visit Provider Internal Medicine
DX: Z51.81 Encounter for therapeutic drug level monitoring (principal)
CPT/HCPCS: 85025

== ENCOUNTER 2023-05-02 11:02 | Outpatient (CLI) | payer MEDICAID, SELFPAY ==
--- NOTE | 2023-05-02 10:45 | DI.RAD_ITS ---
Exam(s) XR SHOULDER LT COMPLETE 2+V EXAM: XR SHOULDER LT COMPLETE 2+V CLINICAL HISTORY: F/U LEFT RTSA. TECHNIQUE: 2D digital imaging was performed of the left shoulder. Two images were obtained. AP and Y views were obtained. COMPARISON: CR XR SHOULDER LT COMPLETE 2+V from 12/13/2022 CR XR SHOULDER LT COMPLETE 2+V from 03/14/2023 FINDINGS: BONES: No acute fracture is present. No bony destructive lesion is seen. JOINTS: No dislocation present. There are stable postsurgical changes of a left total reverse shoulde r replacement. There is no evidence of hardware failure. The acromioclavicular joint is well mainta ined. SOFT TISSUE: Normal. IMPRESSION: Stable left total reverse shoulder replacement. DATA REPOSITORY: RADIATION DOSE DELIVERED:
== END 2023-05-02 11:03 | disposition home or self-care (01) ==
LOC: DIORS 11:02
PROVIDERS: PCP Internal Medicine; Referring Provider Internal Medicine; Visit Provider Student in an Organized Health Care Education/Training Program
DX: Z96.612 Presence of left artificial shoulder joint (principal); Z47.1 Aftercare following joint replacement surgery
CPT/HCPCS: 73030

== ENCOUNTER 2023-05-22 19:56 | Outpatient (REF) | payer MEDICAID, SELFPAY ==
[2023-05-22 19:08] LABS: Abs Immature Grans 0.02 10^3/uL (0.0-0.06); Absolute Basophil Count 0.02 10^3/uL (0.0-0.2); Absolute Eosinophil Count 0.23 10^3/uL (0.0-0.7); Absolute Lymphocyte Count 2.06 10^3/uL (1.2-3.4); Absolute Neutrophil Count 5.13 10^3/uL (1.2-6.7); Basophils % 0.3; Eosinophils % 2.9; HCT 40.2 % (40.0-50.0); HGB 13.3 g/dL (13.5-17.5); Immature Grans % 0.3; Lymphocytes % 25.9; MCH 30.9 pg (27.0-33.0); MCHC 33.1 % (32.0-36.0); MCV 94 fL (80-95); MPV 9.5 fL (8.0-11.0); Monocytes % 6.3; Neutrophils % 64.3; Platelet Count 217 10^3/uL (130-400); RDW 13.2 % (11.8-14.1); RDW-SD 45.3 fL; WBC 7.96 10^3/uL (4.4-10.8)
== END 2023-05-22 19:57 | disposition home or self-care (01) ==
LOC: NCHCN 19:56
PROVIDERS: PCP Internal Medicine; Visit Provider Internal Medicine
DX: F20.9 Schizophrenia, unspecified (principal); Z79.899 Other long term (current) drug therapy
CPT/HCPCS: 85025

== ENCOUNTER 2023-06-19 16:19 | Outpatient (REF) | payer MEDICAID, SELFPAY ==
[2023-06-19 19:25] LABS: Abs Immature Grans 0.03 10^3/uL (0.0-0.06); Absolute Basophil Count 0.05 10^3/uL (0.0-0.2); Absolute Eosinophil Count 0.28 10^3/uL (0.0-0.7); Absolute Lymphocyte Count 1.89 10^3/uL (1.2-3.4); Absolute Monocyte Count 0.57 10^3/uL (0.1-0.8); Absolute Neutrophil Count 5.26 10^3/uL (1.2-6.7); Basophils % 0.6; Eosinophils % 3.5; HCT 39.1 % (40.0-50.0); HGB 13.3 g/dL (13.5-17.5); Immature Grans % 0.4; Lymphocytes % 23.4; MCH 30.8 pg (27.0-33.0); MCV 91 fL (80-95); MPV 9.8 fL (8.0-11.0); Monocytes % 7.1; Platelet Count 239 10^3/uL (130-400); RBC 4.32 10^6/uL (4.36-5.78); RDW 13.2 % (11.8-14.1); RDW-SD 44.1 fL; WBC 8.08 10^3/uL (4.4-10.8)
[2023-06-19 19:55] LABS: Hemoglobin A1C 5.9 % (<5.7)
== END 2023-06-19 16:20 | disposition home or self-care (01) ==
LOC: NCHCN 16:19
PROVIDERS: PCP Internal Medicine; Visit Provider Internal Medicine
DX: Z51.81 Encounter for therapeutic drug level monitoring (principal)
CPT/HCPCS: 80053; 82306; 82607; 83036; 84443; 85025

== ENCOUNTER 2023-06-29 15:47 | Outpatient (REF) | payer MEDICAID, SELFPAY ==
[2023-06-29 18:53] LABS: Vitamin D 25 Total 42.2 ng/mL (30-100)
[2023-06-29 19:00] LABS: ALT 32 U/L (16-63); AST 30 U/L (15-37); Albumin 4.3 g/dL (3.4-5.0); Alkaline Phosphatase 163 U/L (46-116); Anion Gap 10.6 mmol/L (3-11); BUN 8 mg/dL (7-18); Bilirubin, Total 0.4 mg/dL (0.2-1.0); CO2 27.4 mmol/L (21.0-32.0); CREATININE 1.2 mg/dL (0.70-1.30); Calcium 9.9 mg/dL (8.5-10.1); Chloride 91 mmol/L (98-107); Estimated GFR 70.98 (mL/min/1.73m2); Glucose 117 mg/dL (74-106); Potassium 4.7 mmol/L (3.5-5.1); Sodium 129 mmol/L (136-145); TSH (W/Ref FT4) 2.03 uIU/mL (0.36-3.74); Total Protein 8.5 g/dL (6.4-8.2); Vitamin B12 817 pg/mL (193-986)
== END 2023-06-29 15:48 | disposition home or self-care (01) ==
LOC: NCHCN 15:47
PROVIDERS: PCP Internal Medicine; Visit Provider Internal Medicine
DX: Z51.81 Encounter for therapeutic drug level monitoring (principal)
CPT/HCPCS: 80053; 82306; 82607; 84443

== ENCOUNTER 2023-07-04 11:31 | Outpatient (CLI) | payer MEDICAID, SELFPAY ==
--- NOTE | 2023-07-04 10:30 | DI.RAD_ITS ---
Exam(s) XR SHOULDER LT COMPLETE 2+V EXAM: XR SHOULDER LT COMPLETE 2+V CLINICAL HISTORY: F/U LEFT RTSA. TECHNIQUE: 2D digital imaging was performed. COMPARISON: CT CT UPPER EXTREMITY LT WO from 01/15/2023 CR XR SHOULDER LT COMPLETE 2+V from 03/01/2023 CR XR SHOULDER LT COMPLETE 2+V from 03/14/2023 CR XR SHOULDER LT COMPLETE 2+V from 05/02/2023 FINDINGS: Two views. Stable position alignment of the components of the reverse prosthesis. There is an unchanged appeari ng partially healed fracture site in the neck-proximal diaphysis of the humerus again noted. I note this patient had prior fixation plate hardware across fracture site prior to placement of the prosthe sis. IMPRESSION: As above. No new findings. DATA REPOSITORY: RADIATION DOSE DELIVERED:
== END 2023-07-04 11:32 | disposition home or self-care (01) ==
LOC: DIORS 11:31
PROVIDERS: PCP Internal Medicine; Visit Provider Student in an Organized Health Care Education/Training Program
DX: Z96.612 Presence of left artificial shoulder joint (principal); Z47.1 Aftercare following joint replacement surgery
CPT/HCPCS: 73030

== ENCOUNTER 2023-07-25 11:59 | Outpatient (REF) | payer MEDICAID, SELFPAY ==
[2023-07-25 20:07] LABS: Abs Immature Grans 0.02 10^3/uL (0.0-0.06); Absolute Basophil Count 0.04 10^3/uL (0.0-0.2); Absolute Lymphocyte Count 2.26 10^3/uL (1.2-3.4); Absolute Monocyte Count 0.61 10^3/uL (0.1-0.8); Absolute Neutrophil Count 4.12 10^3/uL (1.2-6.7); Basophils % 0.5; Eosinophils % 4.1; HCT 36.9 % (40.0-50.0); HGB 12.6 g/dL (13.5-17.5); Immature Grans % 0.3; Lymphocytes % 30.7; MCH 30.1 pg (27.0-33.0); MCHC 34.1 % (32.0-36.0); MCV 88 fL (80-95); MPV 8.9 fL (8.0-11.0); Monocytes % 8.3; Neutrophils % 56.1; Platelet Count 245 10^3/uL (130-400); RBC 4.18 10^6/uL (4.36-5.78); RDW 13.4 % (11.8-14.1); RDW-SD 43.8 fL; WBC 7.35 10^3/uL (4.4-10.8)
== END 2023-07-25 12:00 | disposition home or self-care (01) ==
LOC: NCHCN 11:59
PROVIDERS: PCP Internal Medicine; Visit Provider Nurse Practitioner Family
DX: Z51.81 Encounter for therapeutic drug level monitoring (principal)
CPT/HCPCS: 85025

== ENCOUNTER 2023-08-21 12:02 | Outpatient (REF) | payer MEDICAID, SELFPAY ==
[2023-08-21 19:14] LABS: Abs Immature Grans 0.02 10^3/uL (0.0-0.06); Absolute Basophil Count 0.03 10^3/uL (0.0-0.2); Absolute Eosinophil Count 0.19 10^3/uL (0.0-0.7); Absolute Lymphocyte Count 2.02 10^3/uL (1.2-3.4); Absolute Monocyte Count 0.69 10^3/uL (0.1-0.8); Absolute Neutrophil Count 3.75 10^3/uL (1.2-6.7); Basophils % 0.4; Eosinophils % 2.8; HCT 36.2 % (40.0-50.0); HGB 12.2 g/dL (13.5-17.5); Immature Grans % 0.3; Lymphocytes % 30.1; MCH 31.1 pg (27.0-33.0); MCHC 33.7 % (32.0-36.0); MCV 92 fL (80-95); MPV 9.7 fL (8.0-11.0); Monocytes % 10.3; Neutrophils % 56.1; Platelet Count 226 10^3/uL (130-400); RBC 3.92 10^6/uL (4.36-5.78); RDW 14.3 % (11.8-14.1); RDW-SD 48.7 fL
== END 2023-08-21 12:03 | disposition home or self-care (01) ==
LOC: LBN 12:02
PROVIDERS: PCP Internal Medicine; Visit Provider Nurse Practitioner Psychiatric/Mental Health
DX: F20.89 Other schizophrenia (principal); Z79.899 Other long term (current) drug therapy; D70.8 Other neutropenia
CPT/HCPCS: 85025

== ENCOUNTER 2023-09-21 11:35 | Outpatient (REF) | payer MEDICAID, SELFPAY ==
[2023-09-21 19:04] LABS: Abs Immature Grans 0.02 10^3/uL (0.0-0.06); Absolute Basophil Count 0.03 10^3/uL (0.0-0.2); Absolute Eosinophil Count 0.31 10^3/uL (0.0-0.7); Absolute Lymphocyte Count 2.11 10^3/uL (1.2-3.4); Absolute Monocyte Count 0.53 10^3/uL (0.1-0.8); Absolute Neutrophil Count 6.33 10^3/uL (1.2-6.7); Basophils % 0.3; Eosinophils % 3.3; HCT 37.3 % (40.0-50.0); HGB 12.5 g/dL (13.5-17.5); Immature Grans % 0.2; Lymphocytes % 22.6; MCH 30.3 pg (27.0-33.0); MCHC 33.5 % (32.0-36.0); MCV 90 fL (80-95); MPV 9.4 fL (8.0-11.0); Monocytes % 5.7; Neutrophils % 67.9; Platelet Count 201 10^3/uL (130-400); RBC 4.13 10^6/uL (4.36-5.78); RDW 13.3 % (11.8-14.1); RDW-SD 44.1 fL; WBC 9.33 10^3/uL (4.4-10.8)
== END 2023-09-21 11:36 | disposition home or self-care (01) ==
LOC: NCHCN 11:35
PROVIDERS: PCP Internal Medicine; Visit Provider Internal Medicine
DX: F20.89 Other schizophrenia (principal); Z79.899 Other long term (current) drug therapy
CPT/HCPCS: 85025

== ENCOUNTER 2023-10-24 17:59 | Outpatient (REF) | payer MEDICAID, SELFPAY ==
[2023-10-24 20:15] LABS: HCT 36.4 % (40.0-50.0); HGB 12.3 g/dL (13.5-17.5); MCH 30.3 pg (27.0-33.0); MCHC 33.8 % (32.0-36.0); MCV 90 fL (80-95); MPV 9.4 fL (8.0-11.0); Platelet Count 219 10^3/uL (130-400); RBC 4.06 10^6/uL (4.36-5.78); RDW 13.2 % (11.8-14.1); RDW-SD 43.7 fL; WBC 8.06 10^3/uL (4.4-10.8)
[2023-10-24 20:16] LABS: Abs Immature Grans 0.02 10^3/uL (0.0-0.06); Absolute Basophil Count 0.03 10^3/uL (0.0-0.2); Absolute Eosinophil Count 0.25 10^3/uL (0.0-0.7); Absolute Lymphocyte Count 2.18 10^3/uL (1.2-3.4); Absolute Monocyte Count 0.58 10^3/uL (0.1-0.8); Basophils % 0.4; Eosinophils % 3.1; Immature Grans % 0.2; Monocytes % 7.2; Neutrophils % 62.1
== END 2023-10-24 18:00 | disposition home or self-care (01) ==
LOC: NCHCN 17:59
PROVIDERS: PCP Internal Medicine; Visit Provider Internal Medicine
DX: F20.89 Other schizophrenia (principal); Z51.81 Encounter for therapeutic drug level monitoring; Z79.899 Other long term (current) drug therapy
CPT/HCPCS: 85025

== ENCOUNTER 2023-11-21 14:49 | Outpatient (REF) | payer MEDICAID, SELFPAY ==
[2023-11-21 19:50] LABS: Abs Immature Grans 0.02 10^3/uL (0.0-0.06); Absolute Basophil Count 0.04 10^3/uL (0.0-0.2); Absolute Eosinophil Count 0.31 10^3/uL (0.0-0.7); Absolute Lymphocyte Count 2.13 10^3/uL (1.2-3.4); Absolute Monocyte Count 0.78 10^3/uL (0.1-0.8); Absolute Neutrophil Count 4.78 10^3/uL (1.2-6.7); Basophils % 0.5; Eosinophils % 3.8; HCT 42.1 % (40.0-50.0); HGB 14.1 g/dL (13.5-17.5); Immature Grans % 0.2; Lymphocytes % 26.4; MCH 30.5 pg (27.0-33.0); MCHC 33.5 % (32.0-36.0); MCV 91 fL (80-95); MPV 9.2 fL (8.0-11.0); Monocytes % 9.7; Neutrophils % 59.4; Platelet Count 213 10^3/uL (130-400); RBC 4.62 10^6/uL (4.36-5.78); RDW 13.3 % (11.8-14.1); RDW-SD 44.8 fL; WBC 8.06 10^3/uL (4.4-10.8)
== END 2023-11-21 14:50 | disposition home or self-care (01) ==
LOC: NCHCN 14:49
PROVIDERS: PCP Internal Medicine; Referring Provider Internal Medicine; Visit Provider Internal Medicine
DX: Z51.81 Encounter for therapeutic drug level monitoring (principal)
CPT/HCPCS: 85025

== ENCOUNTER 2023-12-12 15:40 | Outpatient (CLI) | payer MEDICAID, SELFPAY ==
--- NOTE | 2023-12-12 10:00 | DI.RAD_ITS ---
Exam(s) XR SHOULDER LT COMPLETE 2+V EXAM: XR SHOULDER LT COMPLETE 2+V CLINICAL HISTORY: F/U LEFT RTSA. TECHNIQUE: 2D digital imaging was performed. Three images were obtained. Grashey, Y and axillary vi ews were obtained. COMPARISON: CR XR SHOULDER LT COMPLETE 2+V from 12/13/2022 CR XR SHOULDER LT COMPLETE 2+V from 05/02/2023 CR XR SHOULDER LT COMPLETE 2+V from 07/04/2023 FINDINGS: BONES: There are stable post operative changes of a left total reverse shoulder replacement present. No fracture or dislocation. There is an old proximal humeral fracture deformity. JOINTS: The orthopedic hardware is in good position. No evidence of hardware loosening. SOFT TISSUE: The visualized lungs are clear. IMPRESSION: Stable left total reverse shoulder replacement. DATA REPOSITORY: RADIATION DOSE DELIVERED:
== END 2023-12-12 15:41 | disposition home or self-care (01) ==
LOC: DIORS 15:40
PROVIDERS: PCP Internal Medicine; Visit Provider Student in an Organized Health Care Education/Training Program
DX: Z96.612 Presence of left artificial shoulder joint (principal); Z47.1 Aftercare following joint replacement surgery
CPT/HCPCS: 73030

== ENCOUNTER 2023-12-19 14:52 | Outpatient (REF) | payer MEDICAID, SELFPAY ==
[2023-12-19 19:59] LABS: Abs Immature Grans 0.04 10^3/uL (0.0-0.06); Absolute Basophil Count 0.04 10^3/uL (0.0-0.2); Absolute Eosinophil Count 0.24 10^3/uL (0.0-0.7); Absolute Lymphocyte Count 2.31 10^3/uL (1.2-3.4); Absolute Monocyte Count 0.71 10^3/uL (0.1-0.8); Basophils % 0.4; Eosinophils % 2.2; HCT 37.3 % (40.0-50.0); HGB 12.8 g/dL (13.5-17.5); Immature Grans % 0.4; Lymphocytes % 20.8; MCHC 34.3 % (32.0-36.0); MCV 90 fL (80-95); MPV 9.5 fL (8.0-11.0); Monocytes % 6.4; Neutrophils % 69.8; Platelet Count 196 10^3/uL (130-400); RBC 4.13 10^6/uL (4.36-5.78); RDW 13.6 % (11.8-14.1); RDW-SD 45.1 fL; WBC 11.09 10^3/uL (4.4-10.8)
[2023-12-19 20:01] LABS: Absolute Neutrophil Count 7.74 10^3/uL (1.2-6.7)
== END 2023-12-19 14:53 | disposition home or self-care (01) ==
LOC: NCHCN 14:52
PROVIDERS: PCP Internal Medicine; Visit Provider Internal Medicine
DX: Z51.81 Encounter for therapeutic drug level monitoring (principal)
CPT/HCPCS: 85025

== ENCOUNTER 2024-01-16 11:29 | Outpatient (REF) | payer MEDICAID, SELFPAY ==
[2024-01-16 19:37] LABS: Abs Immature Grans 0.02 10^3/uL (0.0-0.06); Absolute Basophil Count 0.04 10^3/uL (0.0-0.2); Absolute Eosinophil Count 0.27 10^3/uL (0.0-0.7); Absolute Lymphocyte Count 1.85 10^3/uL (1.2-3.4); Absolute Monocyte Count 0.53 10^3/uL (0.1-0.8); Basophils % 0.7 %; Eosinophils % 4.6 %; HCT 37.6 % (40.0-50.0); HGB 12.8 g/dL (13.5-17.5); Immature Grans % 0.3 %; Lymphocytes % 31.3 %; MCH 30.8 pg (27.0-33.0); MCV 91 fL (80-95); MPV 9.5 fL (8.0-11.0); Neutrophils % 54.1 %; Platelet Count 241 10^3/uL (130-400); RBC 4.15 10^6/uL (4.36-5.78); RDW 13.8 % (11.8-14.1); RDW-SD 46.1 fL; WBC 5.91 10^3/uL (4.4-10.8)
== END 2024-01-16 11:30 | disposition home or self-care (01) ==
LOC: NCHCN 11:29
PROVIDERS: PCP Internal Medicine; Visit Provider Internal Medicine
DX: Z51.81 Encounter for therapeutic drug level monitoring (principal)
CPT/HCPCS: 85025

== ENCOUNTER 2024-02-26 15:16 | Outpatient (REF) | payer MEDICAID, SELFPAY ==
[2024-02-26 19:31] LABS: HCT 36.9 % (40.0-50.0); HGB 12.5 g/dL (13.5-17.5); MCH 31.1 pg (27.0-33.0); MCHC 33.9 % (32.0-36.0); MCV 92 fL (80-95); MPV 9.7 fL (8.0-11.0); Platelet Count 195 10^3/uL (130-400); RBC 4.02 10^6/uL (4.36-5.78); RDW 13.3 % (11.8-14.1); RDW-SD 45.5 fL; WBC 6.33 10^3/uL (4.4-10.8)
== END 2024-02-26 15:17 | disposition home or self-care (01) ==
LOC: NCHCN 15:16
PROVIDERS: PCP Internal Medicine; Visit Provider Internal Medicine
DX: Z51.81 Encounter for therapeutic drug level monitoring (principal)
CPT/HCPCS: 85027

== ENCOUNTER 2024-03-19 14:20 | Outpatient (REF) | payer MEDICAID, SELFPAY ==
[2024-03-19 20:04] LABS: Abs Immature Grans 0.02 10^3/uL (0.0-0.06); Absolute Basophil Count 0.02 10^3/uL (0.0-0.2); Absolute Eosinophil Count 0.23 10^3/uL (0.0-0.7); Absolute Lymphocyte Count 2.18 10^3/uL (1.2-3.4); Absolute Monocyte Count 0.76 10^3/uL (0.1-0.8); Absolute Neutrophil Count 3.99 10^3/uL (1.2-6.7); Basophils % 0.3 %; Eosinophils % 3.2 %; HCT 35.2 % (40.0-50.0); HGB 12.5 g/dL (13.5-17.5); Immature Grans % 0.3 %; Lymphocytes % 30.3 %; MCH 31.6 pg (27.0-33.0); MCHC 35.5 % (32.0-36.0); MCV 89 fL (80-95); MPV 10.1 fL (8.0-11.0); Monocytes % 10.6 %; Neutrophils % 55.3 %; Platelet Count 179 10^3/uL (130-400); RBC 3.95 10^6/uL (4.36-5.78); RDW 12.9 % (11.8-14.1); RDW-SD 42.6 fL
== END 2024-03-19 14:21 | disposition home or self-care (01) ==
LOC: NCHCN 14:20
PROVIDERS: PCP Internal Medicine; Visit Provider Internal Medicine
DX: Z79.899 Other long term (current) drug therapy (principal)
CPT/HCPCS: 85025

== ENCOUNTER 2024-04-23 12:26 | Outpatient (REF) | payer MEDICAID, SELFPAY ==
[2024-04-23 20:16] LABS: Abs Immature Grans 0.01 10^3/uL (0.0-0.06); Absolute Basophil Count 0.03 10^3/uL (0.0-0.2); Absolute Eosinophil Count 0.22 10^3/uL (0.0-0.7); Absolute Lymphocyte Count 1.52 10^3/uL (1.2-3.4); Absolute Monocyte Count 0.52 10^3/uL (0.1-0.8); Absolute Neutrophil Count 3.46 10^3/uL (1.2-6.7); Basophils % 0.5 %; Eosinophils % 3.8 %; HCT 37.8 % (40.0-50.0); HGB 12.9 g/dL (13.5-17.5); Immature Grans % 0.2 %; Lymphocytes % 26.4 %; MCH 31.5 pg (27.0-33.0); MCHC 34.1 % (32.0-36.0); MCV 92 fL (80-95); MPV 10.2 fL (8.0-11.0); Neutrophils % 60.1 %; Platelet Count 198 10^3/uL (130-400); RDW 13.5 % (11.8-14.1); WBC 5.76 10^3/uL (4.4-10.8)
== END 2024-04-23 12:27 | disposition home or self-care (01) ==
LOC: NCHCN 12:26
PROVIDERS: PCP Internal Medicine; Visit Provider Internal Medicine
DX: Z79.899 Other long term (current) drug therapy (principal)
CPT/HCPCS: 85025

== ENCOUNTER 2024-05-14 11:22 | Outpatient (REF) | payer MEDICAID, SELFPAY ==
[2024-05-14 19:38] LABS: Abs Immature Grans 0.01 10^3/uL (0.0-0.06); Absolute Basophil Count 0.02 10^3/uL (0.0-0.2); Absolute Eosinophil Count 0.24 10^3/uL (0.0-0.7); Absolute Lymphocyte Count 1.86 10^3/uL (1.2-3.4); Absolute Monocyte Count 0.65 10^3/uL (0.1-0.8); Absolute Neutrophil Count 3.25 10^3/uL (1.2-6.7); Basophils % 0.3 %; HCT 36.9 % (40.0-50.0); HGB 12.6 g/dL (13.5-17.5); Immature Grans % 0.2 %; Lymphocytes % 30.8 %; MCH 31.5 pg (27.0-33.0); MCHC 34.1 % (32.0-36.0); MCV 92 fL (80-95); MPV 9.6 fL (8.0-11.0); Monocytes % 10.8 %; Neutrophils % 53.9 %; Platelet Count 182 10^3/uL (130-400); RDW 13.6 % (11.8-14.1); RDW-SD 46.5 fL; WBC 6.03 10^3/uL (4.4-10.8)
== END 2024-05-14 11:23 | disposition home or self-care (01) ==
LOC: NCHCN 11:22
PROVIDERS: PCP Internal Medicine; Visit Provider Internal Medicine
DX: F20.9 Schizophrenia, unspecified (principal)
CPT/HCPCS: 85025

== ENCOUNTER 2024-06-07 10:00 | Emergency (ER) | payer MEDICAID, SELFPAY ==
[2024-06-07] VITALS (37 sets, daily range): BP systolic 87–119; BP diastolic 37–79; PULSE 60–72; RESP 13–20; TEMP 36.6; O2SAT 94–99
--- NOTE | 2024-06-07 10:00 | RT.EKG_ITS ---
APPROVED REPORT Exam: Resting ECG Reason for Exam: chest pain Patient Location: E HR:64 bpm ECG Measurements Heart Rate [address] 167 P 76 QRSd 136 QRS 74 QT 441 T -3 QTc 456 Conclusion Sinus rhythm, rate 64 RBBB, no priors available for comparison No STEMI
--- NOTE | 2024-06-07 10:00 | DI.CT_ITS ---
Exam(s) CT HEAD WO EXAM: CT HEAD WO CLINICAL HISTORY: Fall, unknown head strike. TECHNIQUE: Imaging Protocol: Axial computed tomography images with coronal and sagittal reformatted images were created and reviewed COMPARISON: No exams were available for comparison FINDINGS: The examination is limited due to patient motion artifact. Ventricles and Extra axial spaces: Normal in size and morphology for the patient's age. Hemorrhage: None. Cerebral parenchyma: No evidence of an acute territorial infarct. No mass effect. Midline shift: None. Brainstem/Cerebellum: Normal. Calvarium: Normal. Visualized Paranasal sinuses/Mastoids: There is mucosal thickening in the ethmoid air cells. The mas toid air cells are clear. Soft Tissues: Unremarkable. IMPRESSION: No acute intracranial process. RADIATION DOSE DELIVERED: 839.67mGy.cm Total DLP DATA REPOSITORY: All CT scans at this facility are submitted to the National Radiology Data Registry (NRDR) Dose Index Registry (DIR) with the [employer] (A[employer]). RADIATION OPTIMIZATION: All CT scans at this facility use at least one of these dose optimization te chniques: automated exposure control; mA and/or kV adjustment per patient size (includes targeted exa ms where dose is matched to clinical indication); or iterative reconstruction.
--- NOTE | 2024-06-07 10:00 | DI.RAD_ITS ---
Exam(s) XR TOE RT GREAT EXAM: XR TOE RT GREAT CLINICAL HISTORY: Fall, pain. TECHNIQUE: 2D digital imaging was performed of the right great toe. Three images were obtained. AP , oblique and lateral views were obtained. COMPARISON: No exams were available for comparison FINDINGS: BONES: No acute fracture is present. No bony destructive lesion is seen. JOINTS: No dislocation present. SOFT TISSUE: Normal. IMPRESSION: No acute fracture or dislocation. DATA REPOSITORY: RADIATION DOSE DELIVERED:
--- NOTE | 2024-06-07 10:05 | DI.RAD_ITS ---
Exam(s) XR CHEST 1V IN DI DEPT EXAM: XR CHEST 1V IN DI DEPT CLINICAL HISTORY: Eval PNA TECHNIQUE: 2D digital imaging was performed of the chest. Two images were obtained. AP views were obtained. COMPARISON: CR XR CHEST 1V IN DI DEPT from 10/14/2019 FINDINGS: MEDIASTINUM: Normal. HEART: Normal. PULMONARY VASCULATURE: Normal. LUNGS: Clear. PLEURAL SPACE: No pleural effusion or pneumothorax. BONE:Within normal limits for the patient's age. Patient has a left total reverse shoulder replaceme nt. OTHER FINDINGS:Normal. IMPRESSION: No acute pulmonary findings. DATA REPOSITORY: RADIATION DOSE DELIVERED:
--- NOTE | 2024-06-07 10:08 | ED.GENADUL_ITS ---
Discharge Plan Disposition Patient Disposition: Home Condition: Stable Discharge Details Clinical Impression: COVID-19, Acute dehydration, Anemia, Thrombocythemia, Abnormal transaminases Primary Care Provider: Vaibhav Brock ED Provider: Justine Garcia Home Meds and New Rx's Prescriptions: No Action atorvastatin 20 mg tablet 20 mg PO HS mirabegron [Myrbetriq] 25 mg tablet extended release 24 hr 25 mg PO DAILY Qty: 30 12RF carbamazepine 200 mg Tablet 200 mg PO BID diphenhydramine HCl [Benadryl] 25 mg Capsule 25 - 50 mg PO Q6H PRN loperamide 2 mg Tablet 2 - 4 mg PO PRN PRN magnesium hydroxide [Milk of Magnesia] 400 mg/5 mL Suspension 5 - 15 ml PO PRN PRN Cerovite Senior Tablet 1 tab PO QAM cholecalciferol (vitamin D3) [Vitamin D3] 400 unit Tablet 800 unit PO QAM docusate sodium [Dulcolax Stool Softener (dss)] 100 mg capsule 100 mg PO DAILY Qty: 30 2RF alum-mag hydroxide-simeth [Mylanta Maximum Strength] 400-400-40 mg/5 mL Suspension 15 - 30 ml PO QID PRN amantadine HCl 100 mg Capsule 100 mg PO BID alfuzosin [Uroxatral] 10 mg tablet extended release 24 hr 10 mg PO DAILY Rx Instructions: administer after the same meal each day NewFlora 10 billion cell capsule 10,000 mmu cells PO DAILY acetaminophen 325 MG tablet 650 mg PO PRN PRN (Reason: Discomfort) polyethylene glycol 3350 17 GM powder in packet 17 gm PO DAILY clonazepam 0.5 MG tablet 0.5 mg PO BID Patient Comments: 0.5mg-2mg PRN- max dose of 3mg Q24hrs propranolol 60 MG tablet 60 mg PO BID Patient Comments: Hold for pulse <50 pantoprazole 40 MG tablet,delayed release (DR/EC) 40 mg PO DAILY buspirone 10 MG tablet 20 mg PO QAM risperidone 4 MG tablet,disintegrating 4 mg PO HS clozapine [Clozaril] 100 mg Tablet 500 mg PO QPM clozapine [Clozaril] 100 mg Tablet 300 mg PO QAM clonazepam 0.5 mg Tablet 0.5 - 1 mg PO PRN MDD 2mg PRN calcium carbonate [Tums 500] 500 mg calcium (1,250 mg) Tablet,Chewable 500 - 1,000 mg PO Q4H PRN Discharge Instructions Instructions: COVID-19 ED Additional Instructions: You were seen in the emergency department today for evaluation of shortness of breath and a recent positive COVID test. In our department you have a full physical examination performed, had laboratory studies that showed that you are mildly dehydrated and received fluids. Your COVID test is positive, but you have no sign on your x-ray of pneumonia. You did not have any evidence of injury or other abnormality on your CT of your head or your x-ray of your toe. It is safe for you to go home and continue to take Tylenol and ibuprofen for management of any symptoms of pain or fever. Unfortunately, you take medications that cannot be combined with the COVID-19 antiviral medication, so there are no new prescriptions for you to take. Please follow-up with your primary care provider in the next few days to discuss this visit and any symptoms that change, worsen, or persist. Thank you for allowing us to be part of your care. HPI General Date/Time Provider Initiated Documentation: 06/07/24 10:05 . Limitations to Documentation: no limitations . Information obtained by: patient, EMS and old records reviewed . HPI Narrative: HPI: This is a 58-year-old male patient with a past medical history significant for schizophrenia, positive home COVID test yesterday, brought in by EMS for shortness of breath and chest pain with dizziness. The patient reports that he has had symptoms of cough and shortness of breath for the last 2 to 3 days. States that he felt very dizzy when sitting or standing, did fall and go to the floor, reporting an injury to his right great toe. He is not sure if he hit his head or not, does not believe he lost consciousness. EMS arrived and found him to be intermittently hypotensive, twelve-lead with no STEMI, oxygenating well on room air. He does have a junky sounding cough, and was transported to our facility without acute decompensation. The patient reports that he has not been bringing anything up with his cough but he can feel mucus in his chest. Chest pain present during coughing, no history of heart problems. Has not noted any calf swelling or tenderness, did not have any other concerns for injury other than the right great toe. Exam: Gen: Occasionally falls asleep, arouses to loud voice, no acute distress HEENT: Non-icteric sclera, conjunctiva not injected, scalp atraumatic Neck: Supple, no tenderness or step-offs to palpation of the cervical spine, full range of motion without meningismus Lungs: No apparent respiratory distress, frequent junky sounding cough with associated coarse crackles throughout CV: Appears well perfused, heart with regular rate and rhythm, strong distal pulses Abdomen: Non-distended, soft MSK: Moves 4 extremities without apparent limitation in ROM. No unilateral calf swelling or tenderness, no peripheral edema. The right great toe is tender to palpation and with range of motion with no bruising, deformity, or swelling. Mild crepitus appreciated with flexion. Skin: Visualized skin without rashes, cyanosis. Neuro: No obvious focal deficits or facial asymmetry. Speaks in full, clear sentences. Psych: Appropriate for situation. MDM: This is a 58-year-old male patient brought in by EMS with shortness of breath, chest pain, and dizziness in the setting of a positive home COVID test. My differential includes but is not limited to viral URI, pneumonia, bronchitis. I considered pulmonary edema, pleural effusion, pneumothorax, and reactive airway disease exacerbation though these are less consistent with the patient's history and physical exam findings. Chest pain not present at rest, making ACS, pericarditis and myocarditis less likely. Reassuringly, the patient is not requiring oxygen, does not have a fever but I did consider infectious syndrome such as sepsis, bacteremia. I considered orthostasis, vasovagal syndrome, dehydration, metabolic and electrolyte derangements, anemia. I considered injuries including skull fracture, intracranial hemorrhage, toe fracture. We will obtain laboratory studies to include a CBC, CMP, lactate, troponin, Fluvid, and will obtain chest x-ray. I will provide the patient with a liter of IV fluids for rehydration, and obtain CT imaging to include CT head, and x-ray of the chest and affected right great toe. ED Course: I reviewed the patient's laboratory studies, which reveal no leukocytosis, patient does have mild anemia and thrombocytopenia which is new compared to laboratory studies obtained 5 years ago. Chemistry panel with mild hyponatremia, and elevated BUN and creatinine to compared to priors, mild transaminitis with an AST to ALT ratio of 2:1. Initial troponin is very low, and the patient's COVID test is positive. I independently interpreted the patie nt's imaging, no evidence of pneumonia or fluid in the lungs to account for his shortness of breath. Intracranial hemorrhage was not apparent on his CT head, and he has no fractures or dislocations of the right toe. The patient remained without a new oxygen requirement, received IV fluids for rehydration to good effect and had improvement in his dizziness. I was able to talk to the patient's caregiver, who reports that he did not actually fall or sustain injury, and suspects that he probably got dehydrated in the setting of his viral illness. At this time, the patient has had a full medical evaluation and is safe for discharge to home. They are hemodynamically stable, ambulatory, and tolerating PO. They are understanding of the follow-up plan and return precautions. They left our facility without incident. Justine Garcia MD Related Data Home Medications ?Medication ?Instructions ?Recorded ?Confirmed acetaminophen 325 mg tablet 650 mg PO PRN PRN Discomfort 01/19/17 06/07/24 buspirone 10 mg tablet 20 mg PO QAM 01/19/17 06/07/24 clonazepam 0.5 mg tablet 0.5 mg PO BID 01/19/17 06/07/24 pantoprazole 40 mg tablet,delayed 40 mg PO DAILY 01/19/17 06/07/24 release polyethylene glycol 3350 17 gram 17 gm PO DAILY 01/19/17 06/07/24 oral powder packet propranolol 60 mg tablet 60 mg PO BID 01/19/17 06/07/24 risperidone 4 mg disintegrating 4 mg PO HS 01/19/17 06/07/24 tablet carbamazepine 200 mg tablet 200 mg PO BID 03/20/19 06/07/24 cholecalciferol (vitamin D3) 10 800 unit PO QAM 05/04/19 06/07/24 mcg (400 unit) tablet (Vitamin D3) diphenhydramine HCl 25 mg capsule 25 - 50 mg PO Q6H PRN 05/04/19 06/07/24 (Benadryl) docusate sodium 100 mg capsule 100 mg PO DAILY #30 caps 05/04/19 06/07/24 (Dulcolax Stool Softener (docusate)) loperamide 2 mg tablet 2 - 4 mg PO PRN PRN 05/04/19 06/07/24 magnesium hydroxide 400 mg/5 mL 5 - 15 ml PO PRN PRN 05/04/19 06/07/24 oral suspension (Milk of Magnesia) kkegeokjtarp-ukczqkfb-ujeywk 1 tab PO QAM 05/04/19 06/07/24 tablet (Cerovite Senior) aluminum-mag hydroxide-simethicone 15 - 30 ml PO QID PRN 10/09/19 06/07/24 400 mg-400 mg-40 mg/5 mL oral susp (Mylanta Maximum Strength) amantadine HCl 100 mg capsule 100 mg PO BID 10/16/19 06/07/24 atorvastatin 20 mg tablet 20 mg PO HS 04/28/20 06/07/24 calcium carbonate 500 - 1,000 mg PO Q4H PRN 02/27/23 06/07/24 clonazepam 0.5 mg tablet 0.5 - 1 mg PO PRN PRN 02/27/23 06/07/24 clozapine 100 mg tablet (Clozaril) 300 mg PO QAM 02/27/23 06/07/24 clozapine 100 mg tablet (Clozaril) 500 mg PO QPM 02/27/23 06/07/24 mirabegron 25 mg tablet,extended 25 mg PO DAILY #30 tab-caps 07/16/23 06/07/24 release 24 hr (Myrbetriq) Lactobacillus acidophilus 10 10,000 mmu cells PO DAILY 06/07/24 06/07/24 billion cell capsule (NewFlora) alfuzosin 10 mg tablet,extended 10 mg PO DAILY 06/07/24 06/07/24 release 24 hr (Uroxatral) Previous Rx's ?Medication ?Instructions ?Recorded docusate sodium 100 mg capsule 100 mg PO DAILY #30 caps 05/04/19 (Dulcolax Stool Softener (docusate)) mirabegron 25 mg tablet,extended 25 mg PO DAILY #30 tab-caps 07/16/23 release 24 hr (Myrbetriq) Allergies Allergy/AdvReac Type Severity Reaction Status Date / Time No Known Allergies Allergy Verified 10/30/23 14:24 General Stated Complaint: RespSymp MILENA: 3 Course Lab/Test Results Lab/Test Results: 06/07/24 10:05 Blood Blood Culture - Pending 06/07/24 10:05 Blood Blood Culture - Pending Medical Decision Making Quality:SDOH Health Related Social Needs: No Data to Display PFSH All Active Problems (Updated 06/07/24 @ 12:23 by Justine Garcia MD) Abnormal transaminases (Acute) Thrombocythemia (Acute) Anemia (Chronic) Acute dehydration (Acute) COVID-19 (Acute) Status post reverse arthroplasty of left shoulder (Acute) Lower urinary tract symptoms (LUTS) (Acute) Closed fracture of left proximal humerus (Acute 10/01/19) S/P ORIF 10/16/2019 Schizophrenia (Chronic) Nicotine abuse (Acute) Medical History (Updated 06/07/24 @ 12:23 by Justine Garcia MD) COPD (chronic obstructive pulmonary disease) mild Painful orthopaedic hardware (~02/2020) Tendinitis of long head of biceps brachii of left shoulder (~09/2019) Borderline personality disorder ETOH abuse Hyperlipemia Constipation Paranoid schizophrenia Surgical History (Updated 05/02/23 @ 10:57 by Kim Humphries RN) History of surgery ORIF proximal humerus left Social History Smoking/Tobacco Use Status: Former Tobacco Use Quit Date: 02/09/20 Smoking risk assessment performed?: Yes Alcohol Intake: never Drug use: Never Substance use type: does not use Current gender identity: male Do you feel safe at home: Yes Additional Social history: [facility] resident,
[2024-06-07] MEDS: Lactated Ringers 1,000 ML 1000 ML IV (10:34)
[2024-06-07 10:38] LABS: Lactate 1.3 mmol/L (0.6-1.4)
[2024-06-07 10:40] LABS: Abs Immature Grans 0.01 10^3/uL (0.0-0.06); Absolute Basophil Count 0.01 10^3/uL (0.0-0.2); Absolute Lymphocyte Count 0.95 10^3/uL (1.2-3.4); Absolute Monocyte Count 0.54 10^3/uL (0.1-0.8); Absolute Neutrophil Count 4.44 10^3/uL (1.2-6.7); Basophils % 0.2 %; HCT 37.5 % (40.0-50.0); HGB 12.6 g/dL (13.5-17.5); Immature Grans % 0.2 %; MCH 31.5 pg (27.0-33.0); MCHC 33.6 % (32.0-36.0); MCV 94 fL (80-95); MPV 9.2 fL (8.0-11.0); Monocytes % 9.1 %; Neutrophils % 74.5 %; Platelet Count 125 10^3/uL (130-400); RDW 14.3 % (11.8-14.1); RDW-SD 49.4 fL; WBC 5.95 10^3/uL (4.4-10.8)
[2024-06-07 10:58] LABS: ALT 85 U/L (16-63); AST 163 U/L (15-37); Albumin 3.5 g/dL (3.4-5.0); Alkaline Phosphatase 137 U/L (46-116); Anion Gap 8.7 mmol/L (3-11); BUN 25 mg/dL (7-18); Bilirubin, Total 0.48 mg/dL (0.2-1.0); CO2 27.3 mmol/L (21.0-32.0); CREATININE 2.2 mg/dL (0.70-1.30); Calcium 9.2 mg/dL (8.5-10.1); Chloride 91 mmol/L (98-107); Estimated GFR 34.08 (mL/min/1.73m2); Glucose 93 mg/dL (74-106); Magnesium 2.2 mg/dL (1.8-2.4); Potassium 3.7 mmol/L (3.5-5.1); Sodium 127 mmol/L (136-145); Total Protein 7.6 g/dL (6.4-8.2); Troponin I 9 ng/L (<or=76)
[2024-06-07 11:25] LABS: Influenza A PCR Negative (Negative); Influenza B PCR Negative (Negative); RSV PCR Negative (Negative)
[2024-06-07 11:27] LABS: COVID-19 PCR Positive (Negative); Source Nasopharynx
--- NOTE | 2024-06-07 11:27 | DI.VRAD_ITS ---
PROCEDURE INFORMATION: Exam: CT Head Without Contrast Exam date and time: 06/07/2024 11:14 AM Age: 58 years old Clinical indication: Other: Fall, unknown head strike TECHNIQUE: Imaging protocol: Computed tomography of the head without contrast. Radiation optimization: All CT scans at this facility use at least one of these dose optimization techniques: automated exposure control; mA and/or kV adjustment per patient size (includes targeted exams where dose is matched to clinical indication); or iterative reconstruction. COMPARISON: No relevant prior studies available. FINDINGS: Brain: Mild form of chronic ischemic small vessel disease. No recent infarct, intracranial bleed or mass effect. Cerebral ventricles: No ventriculomegaly. Paranasal sinuses: Mild mucosal disease of bilateral ethmoid air cells. Mastoid air cells: Visualized mastoid air cells are well aerated. Bones: Unremarkable. No acute fracture. Soft tissues: Unremarkable. IMPRESSION: No intracranial posttraumatic changes. Dictated and Authenticated by: Kvng Jimenez MD. Ordering:ANNA Zurita MD
--- NOTE | 2024-06-07 11:28 | DI.VRAD_ITS ---
PROCEDURE INFORMATION: Exam: XR Right Toe(s) Exam date and time: 06/07/2024 11:06 AM Age: 58 years old Clinical indication: Other: Fall, pain TECHNIQUE: Imaging protocol: Radiologic exam of the right toes. Views: Minimum 2 views. COMPARISON: No relevant prior studies available. FINDINGS: Bones/joints: Mild degenerative disease of the 1st metatarsophalangeal joint. Soft tissues: Normal. IMPRESSION: No acute fracture or dislocation. Dictated and Authenticated by: Kvng Jimenez MD. Ordering:ANNA Zurita MD
--- NOTE | 2024-06-07 11:29 | DI.VRAD_ITS ---
PROCEDURE INFORMATION: Exam: XR Chest Exam date and time: 06/07/2024 11:02 AM Age: 58 years old Clinical indication: Other: Evaluate pna TECHNIQUE: Imaging protocol: Radiologic exam of the chest. Views: 1 view. COMPARISON: CT CHEST W 10/10/2021 2:37 PM FINDINGS: Lungs: Unremarkable. No consolidation. Pleural spaces: Unremarkable. No pleural effusion. No pneumothorax. Heart/Mediastinum: Unremarkable. No cardiomegaly. Bones/joints: Reverse total left shoulder arthroplasty. Mild degenerative disease of the right acromioclavicular joint. IMPRESSION: No acute cardiopulmonary process. Dictated and Authenticated by: Kvng Jimenez MD. Ordering:ANNA Zurita MD
[2024-06-07 12:09] LABS: Troponin I 11 ng/L (<or=76)
== END 2024-06-07 13:56 | disposition home or self-care (01) ==
PROVIDERS: Emergency Provider Emergency Medicine; PCP Internal Medicine
DX: U07.1 COVID-19 (principal); E86.0 Dehydration; D64.9 Anemia, unspecified; D75.839 Thrombocytosis, unspecified; R74.8 Abnormal levels of other serum enzymes
CPT/HCPCS: 36415; 80053; 87040; 87637; 93005; 96360; 96361; 99285; 70450; 71045; 73660; 83605; 83735; 84484; 85025; 93010; 99284

== ENCOUNTER 2024-06-18 12:22 | Outpatient (REF) | payer MEDICAID, SELFPAY ==
[2024-06-18 19:44] LABS: Abs Immature Grans 0.02 10^3/uL (0.0-0.06); Absolute Basophil Count 0.02 10^3/uL (0.0-0.2); Absolute Eosinophil Count 0.08 10^3/uL (0.0-0.7); Absolute Lymphocyte Count 1.43 10^3/uL (1.2-3.4); Absolute Monocyte Count 0.58 10^3/uL (0.1-0.8); Absolute Neutrophil Count 5.66 10^3/uL (1.2-6.7); Basophils % 0.3 %; HCT 35.9 % (40.0-50.0); HGB 12.1 g/dL (13.5-17.5); Immature Grans % 0.3 %; Lymphocytes % 18.4 %; MCH 31.5 pg (27.0-33.0); MCHC 33.7 % (32.0-36.0); MCV 94 fL (80-95); MPV 9.7 fL (8.0-11.0); Monocytes % 7.4 %; Neutrophils % 72.6 %; Platelet Count 251 10^3/uL (130-400); RBC 3.84 10^6/uL (4.36-5.78); RDW 13.9 % (11.8-14.1); RDW-SD 47.2 fL; WBC 7.79 10^3/uL (4.4-10.8)
== END 2024-06-18 12:23 | disposition home or self-care (01) ==
LOC: NCHCN 12:22
PROVIDERS: PCP Internal Medicine; Visit Provider Internal Medicine
DX: Z79.899 Other long term (current) drug therapy
CPT/HCPCS: 85025

== ENCOUNTER 2024-07-16 12:12 | Outpatient (REF) | payer MEDICAID, SELFPAY ==
[2024-07-16 19:38] LABS: Abs Immature Grans 0.03 10^3/uL (0.0-0.06); Absolute Basophil Count 0.03 10^3/uL (0.0-0.2); Absolute Eosinophil Count 0.17 10^3/uL (0.0-0.7); Absolute Lymphocyte Count 1.82 10^3/uL (1.2-3.4); Absolute Monocyte Count 0.61 10^3/uL (0.1-0.8); Basophils % 0.4 %; Eosinophils % 2.4 %; HCT 35.7 % (40.0-50.0); HGB 12.2 g/dL (13.5-17.5); Immature Grans % 0.4 %; Lymphocytes % 25.4 %; MCH 31.8 pg (27.0-33.0); MCHC 34.2 % (32.0-36.0); MCV 93 fL (80-95); MPV 9.6 fL (8.0-11.0); Monocytes % 8.5 %; Neutrophils % 62.9 %; Platelet Count 216 10^3/uL (130-400); RBC 3.84 10^6/uL (4.36-5.78); RDW 13.9 % (11.8-14.1); RDW-SD 47.3 fL; WBC 7.16 10^3/uL (4.4-10.8)
== END 2024-07-16 12:13 | disposition home or self-care (01) ==
LOC: NCHCN 12:12
PROVIDERS: PCP Internal Medicine; Visit Provider Internal Medicine
DX: F20.9 Schizophrenia, unspecified (principal)
CPT/HCPCS: 85025

== ENCOUNTER 2024-08-14 10:18 | Outpatient (REF) | payer MEDICAID, SELFPAY ==
[2024-08-14 20:00] LABS: ALT 16 U/L (16-63); AST 27 U/L (15-37); Albumin 3.7 g/dL (3.4-5.0); Alkaline Phosphatase 141 U/L (46-116); Anion Gap 7.9 mmol/L (3-11); BUN 11 mg/dL (7-18); Bilirubin, Total 0.27 mg/dL (0.2-1.0); CO2 28.1 mmol/L (21.0-32.0); CREATININE 1.2 mg/dL (0.70-1.30); Calcium 9.6 mg/dL (8.5-10.1); Chloride 101 mmol/L (98-107); Estimated GFR 70.53 (mL/min/1.73m2); Glucose 111 mg/dL (74-106); Potassium 4.6 mmol/L (3.5-5.1); Sodium 137 mmol/L (136-145); Total Protein 7.7 g/dL (6.4-8.2)
== END 2024-08-14 10:19 | disposition home or self-care (01) ==
LOC: NCHCN 10:18
PROVIDERS: PCP Internal Medicine; Visit Provider Internal Medicine
DX: Z76.89 Persons encountering health services in other specified circumstances (principal)
CPT/HCPCS: 80053

== ENCOUNTER 2024-08-20 10:56 | Outpatient (REF) | payer MEDICAID, SELFPAY ==
[2024-08-20 22:02] LABS: Abs Immature Grans 0.04 10^3/uL (0.0-0.06); Absolute Basophil Count 0.02 10^3/uL (0.0-0.2); Absolute Eosinophil Count 0.12 10^3/uL (0.0-0.7); Absolute Lymphocyte Count 1.72 10^3/uL (1.2-3.4); Absolute Monocyte Count 0.67 10^3/uL (0.1-0.8); Absolute Neutrophil Count 7.76 10^3/uL (1.2-6.7); Basophils % 0.2 %; Eosinophils % 1.2 %; HCT 36.5 % (40.0-50.0); HGB 12.5 g/dL (13.5-17.5); Immature Grans % 0.4 %; Lymphocytes % 16.7 %; MCH 31.6 pg (27.0-33.0); MCHC 34.2 % (32.0-36.0); MCV 92 fL (80-95); MPV 10.1 fL (8.0-11.0); Monocytes % 6.5 %; Platelet Count 249 10^3/uL (130-400); RBC 3.95 10^6/uL (4.36-5.78); RDW 13.2 % (11.8-14.1); RDW-SD 44.5 fL; WBC 10.33 10^3/uL (4.4-10.8)
== END 2024-08-20 10:57 | disposition home or self-care (01) ==
LOC: NCHCN 10:56
PROVIDERS: PCP Internal Medicine; Visit Provider Internal Medicine
DX: Z79.899 Other long term (current) drug therapy (principal); F20.9 Schizophrenia, unspecified
CPT/HCPCS: 85025

== ENCOUNTER 2024-09-11 12:12 | Outpatient (REF) | payer MEDICAID, SELFPAY ==
[2024-09-11 19:04] LABS: Abs Immature Grans 0.02 10^3/uL (0.0-0.06); Absolute Basophil Count 0.03 10^3/uL (0.0-0.2); Absolute Eosinophil Count 0.13 10^3/uL (0.0-0.7); Absolute Lymphocyte Count 1.89 10^3/uL (1.2-3.4); Absolute Monocyte Count 0.53 10^3/uL (0.1-0.8); Basophils % 0.3 %; Eosinophils % 1.4 %; HCT 33.8 % (40.0-50.0); HGB 11.4 g/dL (13.5-17.5); Immature Grans % 0.2 %; MCH 31.7 pg (27.0-33.0); MCHC 33.7 % (32.0-36.0); MCV 94 fL (80-95); Monocytes % 5.9 %; Neutrophils % 71.2 %; Platelet Count 189 10^3/uL (130-400); RDW-SD 44.6 fL
== END 2024-09-11 12:13 | disposition home or self-care (01) ==
LOC: NCHCN 12:12
PROVIDERS: PCP Internal Medicine; Visit Provider Internal Medicine
DX: F20.9 Schizophrenia, unspecified (principal)
CPT/HCPCS: 85025

== ENCOUNTER 2024-10-15 17:00 | Outpatient (REF) | payer MEDICAID, SELFPAY ==
[2024-10-16 12:54] LABS: Abs Immature Grans 0.14 10^3/uL (0.0-0.06); HCT 32.6 % (40.0-50.0); HGB 10.8 g/dL (13.5-17.5); MCH 30.1 pg (27.0-33.0); MCHC 33.1 % (32.0-36.0); MCV 91 fL (80-95); MPV 9.5 fL (8.0-11.0); Platelet Count 321 10^3/uL (130-400); RBC 3.59 10^6/uL (4.36-5.78); RDW 13.2 % (11.8-14.1); RDW-SD 43.9 fL
[2024-10-16 12:55] LABS: Absolute Monocyte Count 1.08 10^3/uL (0.1-0.8); Absolute Neutrophil Count 10.09 10^3/uL (1.2-6.7); WBC 13.45 10^3/uL (4.4-10.8)
[2024-10-16 12:56] LABS: Absolute Lymphocyte Count 2.15 10^3/uL (1.2-3.4); Atypical Lymphocytes % 4 %; Diff Comment Manual Differential; Myelocytes % 1; RBC Morphology Normal
== END 2024-10-15 17:01 | disposition home or self-care (01) ==
LOC: NCHCN 17:00
PROVIDERS: PCP Internal Medicine; Visit Provider Internal Medicine
DX: Z51.81 Encounter for therapeutic drug level monitoring (principal)
CPT/HCPCS: 85025

== ENCOUNTER 2024-10-24 00:17 | Outpatient (CLI) | payer MEDICAID, SELFPAY ==
--- NOTE | 2024-10-24 | DI.CTLCSR_ITS ---
Exam(s) CT CHEST LUNG CANCER SCREEN EXAM: CT CHEST LUNG CANCER SCREEN CLINICAL HISTORY: F17.210 Nicotine dependence, cigarettes uncomplicated TECHNIQUE: Imaging Protocol: Axial computed tomography images with coronal and sagittal reformatted images were created and reviewed. Low dose screening protocol. COMPARISON: CT CT CHEST W from 10/10/[address] ABDOMEN PELVIS W from 10/24/2024 FINDINGS: Tracheobronchial tree: No bronchiectasis or mucus plugging. Mediastinum and Jina: No dominant adenopathy or fluid collection. Pulmonary parenchyma: Large wedge-shaped area consolidation in the lateral left lower lobe, abutting the major fissure. Areas of necrosis were noted on contrast enhanced CT of the abdomen and pelvis p erformed the same day. Mild emphysematous changes. No significant interstitial changes. Lung Nodules: None. Pleura: No effusion. No pneumothorax. Heart: The heart is not dilated. No coronary artery calcifications are seen. No pericardial effusion. Aorta: Thoracic aorta non-dilated. Upper abdomen: Unremarkable. Bones: Left shoulder prosthesis creates artifact on the upper images. No destructive bony lesions. Mild T11 compression fracture. Mild degenerative changes. Soft Tissues: Unremarkable. IMPRESSION: Large area of consolidated pneumonia versus mass in the left lower lobe. No evidence of adenopathy. No pulmonary nodules. Lung RADS Cat 4XS - Category 3 or 4 nodules with additional features or imaging findings that increas es the suspicion of malignancy. Other: Clinically Significant or Potentially Clinically Significant Findings (non lung cancer) Lung-RADS 1.0 CATEGORIES: Category 0 - Prior chest CT exam(s) being located for comparison. Category 1 - Annual screening in 12 months. No nodules or definitely benign nodules. Category 2 - Annual screening in 12 months. Benign appearance. Nodules with low likelihood of becomin g active cancer. Category 3 - 6-month follow-up. Probably benign. Short-term follow-up suggested. Nodules with low lik elihood of becoming active cancer. Category 4A - 3-month follow-up and CT/PET if >8 mm in size. Suspicious finding. Findings which requi re additional testing. Category 4B - Findings which require additional testing and tissue sampling. Category 4X - Category 3 or 4 nodules with additional features or imaging findings that increases the suspicion of malignancy. Modifier S- Potentially clinically significant findings (non lung cancer) Unexpected findings RADIATION DOSE DELIVERED: !Error Total DLP DATA REPOSITORY: All CT scans at this facility are submitted to the National Radiology Data Registry (NRDR) Dose Index Registry (DIR) with the [employer] (ACR). RADIATION OPTIMIZATION: All CT scans at this facility use at least one of these dose optimization te chniques: automated exposure control; mA and/or kV adjustment per patient size (includes targeted exa ms where dose is matched to clinical indication); or iterative reconstruction.
--- NOTE | 2024-10-24 | DI.CT_ITS ---
Exam(s) CT ABDOMEN PELVIS W EXAM: CT ABDOMEN PELVIS W CLINICAL HISTORY: R63.4 Abnormal weight loss. TECHNIQUE: Imaging Protocol: Axial computed tomography images with coronal and sagittal reformatted images were created and reviewed CONTRAST MATERIAL: Intravenous: Omnipaque 350 Contrast volume:75 ml Oral: yes COMPARISON: CT CT ABDOMEN PELVIS W from 03/20/[address] UPPER EXTREMITY LT WO from 01/15/2023 CR,XR XR CHEST 1V IN DI DEPT from 06/07/[address] CHEST LUNG CANCER SCREEN from 10/24/2024 FINDINGS: ABDOMEN and PELVIS: Lung Bases: Large wedge-shaped area of consolidation versus mass at the left lower lobe. Necrotic ar eas noted within the lesion. Trace left pleural effusion. Liver: Normal density. No suspicious mass. Gallbladder and biliary tract: Contracted. No visible radiodense calculus. No wall thickening or per icholecystic fluid. No biliary dilation. Pancreas: Normal density. No abnormal calcifications or inflammatory process. No evidence of mass. Spleen: Normal. Kidneys: Normal size, contour and axis. No radiodense stones. No obstructive uropathy. No suspicious masses seen. Adrenal glands: No masses seen. Vasculature: Abdominal aorta non-dilated. Soft tissues: Unremarkable. Bladder: Mild gross wall thickening and trabeculation anteriorly. No calculi.No focal mass. Bowel: Severe distension of the colon which is full of stool. There are multifocal areas of narrowin g in the colon which may be areas of contraction. No definite mass. No bowel wall thickening. Appen drew normal. Peritoneal cavity: No ascites. No focal collection. No mesenteric inflammatory response. No free air . Bones: Mild compression of the superior endplate of T11. No suspicious bony lesions. Reproductive organs: Unremarkable. Lymph nodes: No pathologically enlarged lymph nodes. IMPRESSION:: Large wedge-shaped area of consolidation with areas of necrosis versus mass at the left lower lobe and trace pleural effusion. Large quantity of stool distending the colon. No colonic mass is visible however is not excluded on the basis of this exam. Colonoscopy recommended. Unexpected findings RADIATION DOSE DELIVERED: Total DLP DATA REPOSITORY: All CT scans at this facility are submitted to the National Radiology Data Registry (NRDR) Dose Index Registry (DIR) with the [employer] (ACR). RADIATION OPTIMIZATION: All CT scans at this facility use at least one of these dose optimization te chniques: automated exposure control; mA and/or kV adjustment per patient size (includes targeted exa ms where dose is matched to clinical indication); or iterative reconstruction.
[2024-10-24] MEDS: Barium Sulfate 2% W/V-Berry Smoothie 450 ML BTL PO (12:37)
[2024-10-24] MEDS: Barium Sulfate 2% W/V-Creamy Vanilla Smoothie 450 ML BTL PO (12:38)
[2024-10-24] MEDS: Normal Saline - Diluent 50 ML VIAL IJ (14:59)
[2024-10-24] MEDS: Omnipaque 350 MG/ML 100 ML BTL IJ (15:01)
== END 2024-10-24 00:37 ==
LOC: DI 00:17
PROVIDERS: PCP Internal Medicine; Visit Provider Internal Medicine
DX: Z12.2 Encounter for screening for malignant neoplasm of respiratory organs (principal); F17.210 Nicotine dependence, cigarettes, uncomplicated; R63.4 Abnormal weight loss; R91.8 Other nonspecific abnormal finding of lung field
CPT/HCPCS: 71271; 74177; J3490

== ENCOUNTER 2024-11-05 16:18 | Outpatient (REF) | payer MEDICAID, SELFPAY ==
[2024-11-05 19:45] LABS: Abs Immature Grans 0.04 10^3/uL (0.0-0.06); Absolute Basophil Count 0.03 10^3/uL (0.0-0.2); Absolute Eosinophil Count 0.11 10^3/uL (0.0-0.7); Absolute Lymphocyte Count 2.03 10^3/uL (1.2-3.4); Absolute Monocyte Count 0.92 10^3/uL (0.1-0.8); Absolute Neutrophil Count 7.45 10^3/uL (1.2-6.7); Basophils % 0.3 %; HCT 31.6 % (40.0-50.0); HGB 10.1 g/dL (13.5-17.5); Immature Grans % 0.4 %; Lymphocytes % 19.2 %; MCV 91 fL (80-95); MPV 8.8 fL (8.0-11.0); Monocytes % 8.7 %; Neutrophils % 70.4 %; Platelet Count 375 10^3/uL (130-400); RBC 3.48 10^6/uL (4.36-5.78); RDW-SD 46.4 fL; WBC 10.58 10^3/uL (4.4-10.8)
[2024-11-05 20:39] LABS: ALT 37 U/L (16-63); AST 51 U/L (15-37); Albumin 2.4 g/dL (3.4-5.0); Alkaline Phosphatase 226 U/L (46-116); Anion Gap 6.8 mmol/L (3-11); BUN 10 mg/dL (7-18); Bilirubin, Total 0.42 mg/dL (0.2-1.0); C-Reactive Protein 12.06 mg/dL (<or=0.5); CO2 29.2 mmol/L (21.0-32.0); CREATININE 0.8 mg/dL (0.70-1.30); Calcium 9.3 mg/dL (8.5-10.1); Chloride 93 mmol/L (98-107); Estimated GFR 102.58 (mL/min/1.73m2); Glucose 104 mg/dL (74-106); Potassium 3.7 mmol/L (3.5-5.1); Sodium 129 mmol/L (136-145); Total Protein 7.6 g/dL (6.4-8.2); Vitamin B12 1011 pg/mL (193-986)
[2024-11-06 08:54] LABS: GGT 412 U/L (15-85)
[2024-11-06 09:37] LABS: Iron 29 ug/dL (65-175)
== END 2024-11-05 16:19 | disposition home or self-care (01) ==
LOC: NCHCN 16:18
PROVIDERS: PCP Internal Medicine; Visit Provider Internal Medicine
DX: F20.9 Schizophrenia, unspecified (principal)
CPT/HCPCS: 80053; 82607; 82977; 83540; 85025; 86140

== ENCOUNTER 2024-12-10 21:22 | Outpatient (REF) | payer MEDICAID, SELFPAY ==
[2024-12-10 20:44] LABS: Abs Immature Grans 0.01 10^3/uL (0.0-0.06); Absolute Basophil Count 0.02 10^3/uL (0.0-0.2); Absolute Eosinophil Count 0.17 10^3/uL (0.0-0.7); Absolute Lymphocyte Count 1.58 10^3/uL (1.2-3.4); Absolute Monocyte Count 0.48 10^3/uL (0.1-0.8); Absolute Neutrophil Count 3.37 10^3/uL (1.2-6.7); Basophils % 0.4 %; HCT 33.7 % (40.0-50.0); HGB 11.4 g/dL (13.5-17.5); Immature Grans % 0.2 %; Lymphocytes % 28.1 %; MCHC 33.8 % (32.0-36.0); MCV 92 fL (80-95); MPV 9.9 fL (8.0-11.0); Monocytes % 8.5 %; Neutrophils % 59.8 %; Platelet Count 170 10^3/uL (130-400); RBC 3.68 10^6/uL (4.36-5.78); RDW 16.6 % (11.8-14.1); RDW-SD 56.4 fL; WBC 5.63 10^3/uL (4.4-10.8)
== END 2024-12-10 21:23 | disposition home or self-care (01) ==
LOC: NCHCN 21:22
PROVIDERS: PCP Internal Medicine; Visit Provider Internal Medicine
DX: F20.9 Schizophrenia, unspecified (principal)
CPT/HCPCS: 85025

== ENCOUNTER 2024-12-12 00:45 | Outpatient (CLI) | payer MEDICAID, SELFPAY ==
--- NOTE | 2024-12-12 | DI.MRI_ITS ---
Exam(s) MR ABDOMEN WO/W EXAM: MR ABDOMEN WO/W CLINICAL HISTORY: Abnl liver function, K76.89; wt loss and increased alk phos TECHNIQUE: Multiplanar multisequence MRI was performed with both pre and post contrast infused seque nces. Contrast injected sequences were performed following IV injection of 17 cc of Dotarem. COMPARISON: CT CT ABDOMEN PELVIS W from 10/24/2024 FINDINGS: VISUALIZED LUNG BASES: The uppermost images reveal some increased markings in the lateral basal segme nt of the left lower lobe. There larger infiltrate/mass seen at this level on CT scan of 10/24/2024 appears significantly decreased in size but this abdomen study does not reach high up enough into the lungs to be truly comparative. There are no pleural effusions. There is a tiny amount of ascites noted in the right pericolic gutter. LIVER: No significant focal findings in the right lobe. In the left hepatic lobe there is a solitary sub capsular findings superiorly which measures 8-9 mm. This is bright on T2 images and becomes iso intense to surrounding liver parenchyma following contrast injection consistent with a small subcapsu lar hemangioma. There are 2 other tiny foci of signal abnormality in the liver in the right hepatic lobe which also b ecome isointense to liver on postcontrast sequences consistent with tiny benign hemangiomas. There are no neoplastic appearing lesions in the liver. BILIARY/MRCP: There is no obvious gallbladder pathology. The CBD is not dilated. PANCREAS: There is no evidence of pancreatic mass nor dilatation of the pancreatic duct. SPLEEN: Spleen is not enlarged and there are no intrasplenic lesions.Splenic and portal veins are pat ent ADRENALS: There are no significant adrenal masses. KIDNEYS: No solid renal masses. No hydronephrosis.No cysts evident. ABDOMINAL AORTA: Not enlarged and there is no significant para-aortic adenopathy. ANTERIOR ABDOMINAL WALL/GI: There is no evidence of significant anterior abdominal wall hernia in the field of view of this study.Is no evidence of obvious bowel obstruction. OSSEOUS: There are no lytic osseous lesions in the field of view of this study. GI: There is significant distension of the colon which is filled with fecal material, similar to the previous CT scan. No evidence of obvious small-bowel obstruction. IMPRESSION: 1. There is a small 8-9 mm benign cavernous hemangioma in the left hepatic lobe. Also 2 additional t iny 2-3 mm similar findings in the right hepatic lobe. 2. There are no neoplastic appearing liver lesions. Also no significant findings in the pancreas. C BD is not dilated. No gallstones evident. 3. Large quantity of fecal material in the colon again noted, as evident on the recent CT scan. 4. The large area of mass infiltrate in the left lower lobe described on the recent CT scan appears smaller on the present MRI although the entire area of this CT finding may not be included. Correlat ion with any interval interventional procedure recommended. DATA REPOSITORY:
[2024-12-12] MEDS: Gadoterate meglumine 20 ML VIAL 17 ML IVP (10:20)
[2024-12-12] MEDS: Normal Saline - Diluent 50 ML VIAL 25 ML IJ (10:21)
== END 2024-12-12 01:05 ==
LOC: DI 00:45
PROVIDERS: PCP Internal Medicine; Visit Provider Internal Medicine
DX: K76.0 Fatty (change of) liver, not elsewhere classified (principal); R91.8 Other nonspecific abnormal finding of lung field
CPT/HCPCS: 74183

== ENCOUNTER 2025-01-14 11:41 | Outpatient (REF) | payer MEDICAID, SELFPAY ==
[2025-01-14 19:49] LABS: Abs Immature Grans 0.01 10^3/uL (0.0-0.06); Absolute Basophil Count 0.01 10^3/uL (0.0-0.2); Absolute Eosinophil Count 0.16 10^3/uL (0.0-0.7); Absolute Lymphocyte Count 1.97 10^3/uL (1.2-3.4); Absolute Monocyte Count 0.42 10^3/uL (0.1-0.8); Basophils % 0.2 %; HCT 35.3 % (40.0-50.0); HGB 12.2 g/dL (13.5-17.5); Immature Grans % 0.2 %; Lymphocytes % 37.4 %; MCH 30.6 pg (27.0-33.0); MCHC 34.6 % (32.0-36.0); MCV 89 fL (80-95); MPV 10.1 fL (8.0-11.0); Neutrophils % 51.2 %; Platelet Count 164 10^3/uL (130-400); RBC 3.99 10^6/uL (4.36-5.78); RDW 14.1 % (11.8-14.1); RDW-SD 45.5 fL; WBC 5.27 10^3/uL (4.4-10.8)
== END 2025-01-14 11:42 | disposition home or self-care (01) ==
LOC: NCHCN 11:41
PROVIDERS: PCP Internal Medicine; Visit Provider Internal Medicine
DX: F20.9 Schizophrenia, unspecified (principal)
CPT/HCPCS: 85025

== ENCOUNTER 2025-02-11 11:16 | Outpatient (REF) | payer MEDICAID, SELFPAY ==
[2025-02-11 19:39] LABS: Abs Immature Grans 0.02 10^3/uL (0.0-0.06); Absolute Basophil Count 0.02 10^3/uL (0.0-0.2); Absolute Eosinophil Count 0.16 10^3/uL (0.0-0.7); Absolute Lymphocyte Count 1.84 10^3/uL (1.2-3.4); Absolute Monocyte Count 0.45 10^3/uL (0.1-0.8); Absolute Neutrophil Count 3.02 10^3/uL (1.2-6.7); Basophils % 0.4 %; Eosinophils % 2.9 %; HCT 36.8 % (40.0-50.0); HGB 12.7 g/dL (13.5-17.5); Immature Grans % 0.4 %; Lymphocytes % 33.4 %; MCH 30.9 pg (27.0-33.0); MCHC 34.5 % (32.0-36.0); MCV 90 fL (80-95); MPV 9.6 fL (8.0-11.0); Monocytes % 8.2 %; Neutrophils % 54.7 %; Platelet Count 160 10^3/uL (130-400); RBC 4.11 10^6/uL (4.36-5.78); RDW 13.2 % (11.8-14.1); RDW-SD 43.4 fL; WBC 5.51 10^3/uL (4.4-10.8)
== END 2025-02-11 11:17 | disposition home or self-care (01) ==
LOC: NCHCN 11:16
PROVIDERS: PCP Internal Medicine; Visit Provider Internal Medicine
DX: F20.9 Schizophrenia, unspecified (principal)
CPT/HCPCS: 85025

== ENCOUNTER 2025-03-09 01:18 | Outpatient (CLI) | payer MEDICAID, SELFPAY ==
--- NOTE | 2025-03-09 | DI.CT_ITS ---
Exam(s) CT CHEST W EXAM: CT CHEST W CLINICAL HISTORY: Lt lwr lobe pul, nodule R91.1 3 month survail of PET TECHNIQUE: Imaging Protocol: Axial computed tomography images with coronal and sagittal reformatted images were created and reviewed. Computer aided detection (CAD) was utilized. CONTRAST MATERIAL: Intravenous: Omnipaque 350 Contrast volume:structured data ml. COMPARISON: CT CT CHEST LUNG CANCER SCREEN from 10/24/2024 CT,PT NM PET CT STANDARD SKULL BASE TO MID-THIGH from 12/09/2024 FINDINGS: Pulmonary parenchyma: Continued improvement in previously noted left lower lobe opacities, now with residual linear densities. There are no masslike features. Tracheobronchial tree: No bronchiectasis or mucous plugging. Mediastinum and Jina: No dominant adenopathy or fluid collection. Pleura: No effusion. No pneumothorax. Heart: The heart is not dilated. Coronary artery calcifications are seen. Aorta: Thoracic aorta non-dilated. Mild atherosclerotic changes. Pulmonary arteries: No gross evidence of emboli. Upper abdomen: Large quantity of stool noted in the visualized portions of the colon. Nondistended over 7 cm Bones: Degenerative changes in the spine. Left shoulder prosthesis. Soft tissues: Unremarkable. IMPRESSION: Significant interval improvement in previously noted left lower lobe consolidation, now with residual linear scarring. Large quantity of fecal material. RADIATION DOSE DELIVERED: 258.34mGy.cm Total DLP DATA REPOSITORY: All CT scans at this facility are submitted to the National Radiology Data Registry (NRDR) Dose Index Registry (DIR) with the [employer] (ACR). RADIATION OPTIMIZATION: All CT scans at this facility use at least one of these dose optimization techniques: automated exposure control; mA and/or kV adjustment per patient size (includes targeted exams where dose is matched to clinical indication); or iterative reconstruction.
[2025-03-09 13:59] LABS: Iron 88 ug/dL (65-175); Total Iron Binding Capacity 370 ug/dL (250-450); Transferrin Sat 24 % (20-55)
[2025-03-09 14:10] LABS: CREATININE 1.4 mg/dL (0.70-1.30); Estimated GFR 58.26 (mL/min/1.73m2); GGT 140 U/L (15-85)
[2025-03-09] MEDS: Omnipaque 350 MG/ML 100 ML BTL 70 ML IJ (14:18)
[2025-03-09] MEDS: Normal Saline - Diluent 50 ML VIAL IJ (14:19)
== END 2025-03-09 01:38 ==
LOC: DI 01:18
PROVIDERS: PCP Internal Medicine; Visit Provider Internal Medicine
DX: R91.8 Other nonspecific abnormal finding of lung field (principal); K76.89 Other specified diseases of liver
CPT/HCPCS: 71260; 82565; 82977; 83540; 83550; J3490

== ENCOUNTER 2025-03-11 21:30 | Outpatient (REF) | payer MEDICAID, SELFPAY ==
[2025-03-11 20:28] LABS: Abs Immature Grans 0.01 10^3/uL (0.0-0.06); HCT 36.9 % (40.0-50.0); HGB 12.5 g/dL (13.5-17.5); Immature Grans % 0.2 %; MCH 30.0 pg (27.0-33.0); MCHC 33.9 % (32.0-36.0); MCV 89 fL (80-95); MPV 9.9 fL (8.0-11.0); Platelet Count 141 10^3/uL (130-400); RBC 4.16 10^6/uL (4.36-5.78); RDW 13.2 % (11.8-14.1); RDW-SD 43.4 fL; WBC 5.69 10^3/uL (4.4-10.8)
== END 2025-03-11 21:31 | disposition home or self-care (01) ==
LOC: NCHCN 21:30
PROVIDERS: PCP Internal Medicine; Visit Provider Internal Medicine
DX: F20.9 Schizophrenia, unspecified (principal)
CPT/HCPCS: 85025

== ENCOUNTER 2025-04-16 08:23 | Day surgery (SDC) | payer MEDICAID, SELFPAY ==
[2025-04-16] VITALS (24 sets, daily range): BP systolic 78–151; BP diastolic 57–99; PULSE 49–86; RESP 16–31; TEMP 36–36.7; O2SAT 82–100; BMI 27.4
[2025-04-16] MEDS: Lactated Ringers 1,000 ML 80 ML IV ×2 (08:52→10:40)
--- NOTE | 2025-04-16 09:15 | W.ANESPRE ---
General Info Date of Service Date Performed: 04/16/25 Height: 5 ft 8 in Weight: 81.8 kg Body Mass Index (BMI): 27.4 Surgical Procedure: Operation Date: 04/16/25 10:50 Proposed Procedure Side Surgeon p Colonoscopy/Gastroscopy Luz Mccollum MD Actual Procedure Side Surgeon p Colonoscopy/Gastroscopy Not Applicable Luz Mccollum MD Meds Allergies and Home Medications Allergies Allergy/AdvReac Type Severity Reaction Status Date / Time No Known Allergies Allergy Verified 04/16/25 08:41 Home Medication ?Medication ?Instructions ?Recorded acetaminophen 325 mg tablet 650 mg PO PRN PRN Discomfort 01/19/17 buspirone 10 mg tablet 20 mg PO QAM 01/19/17 clonazepam 0.5 mg tablet 0.5 mg PO BID PRN 01/19/17 pantoprazole 40 mg tablet,delayed 40 mg PO DAILY 01/19/17 release polyethylene glycol 3350 17 gram 17 gm PO DAILY 01/19/17 oral powder packet propranolol 60 mg tablet 60 mg PO BID 01/19/17 cholecalciferol (vitamin D3) 10 800 unit PO QAM 05/04/19 mcg (400 unit) tablet (Vitamin D3) diphenhydramine HCl 25 mg capsule 25 - 50 mg PO Q6H PRN 05/04/19 (Benadryl) docusate sodium 100 mg capsule 100 mg PO DAILY #30 caps 05/04/19 (Dulcolax Stool Softener (docusate)) loperamide 2 mg tablet 2 - 4 mg PO PRN PRN 05/04/19 magnesium hydroxide 400 mg/5 mL 5 - 15 ml PO PRN PRN 05/04/19 oral suspension (Milk of Magnesia) gcfublwujfzr-xeuptuak-sleqxl 1 tab PO QAM 05/04/19 tablet (Cerovite Senior) aluminum-mag hydroxide-simethicone 15 - 30 ml PO QID PRN 10/09/19 400 mg-400 mg-40 mg/5 mL oral susp (Mylanta Maximum Strength) amantadine HCl 100 mg capsule 100 mg PO BID 10/16/19 atorvastatin 20 mg tablet 20 mg PO HS 04/28/20 calcium carbonate 500 - 1,000 mg PO Q4H PRN 02/27/23 clonazepam 0.5 mg tablet 0.5 mg PO DAILY 06/20/23 clozapine 100 mg tablet (Clozaril) 300 mg PO QAM 02/27/23 Lactobacillus acidophilus 10 10,000 mmu cells PO DAILY 06/07/24 billion cell capsule (NewFlora) alfuzosin 10 mg tablet,extended 10 mg PO DAILY #90 tabs 12/05/24 release 24 hr (Uroxatral) bisacodyl 5 mg tablet,delayed 5 mg PO ONCE colonscopy bowel prep 03/18/25 release (Dulcolax (bisacodyl)) #4 tabs carbamazepine 200 mg tablet 400 mg PO BID 03/18/25 doxazosin 2 mg tablet (Cardura) 2 mg PO DAILY 03/18/25 glycopyrrolate 1 mg tablet 1 mg PO BID-TID PRN 03/18/25 (Robinul) polyethylene glycol 3350 17 238 g PO ONCE colonoscopy prep 03/18/25 gram/dose oral powder #238 grams Current Visit Medications: Current Medications Generic Name Dose Route Start Last Admin Trade Name Freq PRN Reason Stop Dose Admin Ringer's Solution 1,000 mls @ 80 mls/hr 04/16/25 06:00 04/16/25 08:52 IV 05/15/25 23:59 80 mls/hr INFUSION MANUELA Administration IV Miscellaneous Supplies 1 each 04/16/25 06:00 Iv Access IV 05/15/25 23:59 DIRECTED MANUELA Sodium Biphosphate/Sodium Phosphate 133 - 266 ml 04/16/25 06:00 Na Phosphate Enema-Adult 133 Ml Btl OR 04/16/25 23:59 DIRECTED MANUELA Sodium Chloride 0 ml 04/16/25 06:00 Normal Saline Flush 10 Ml Syr IV 05/15/25 23:59 PRN PRN Sodium Chloride 0 ml 04/16/25 06:00 Normal Saline 10 Ml Vial IJ 05/15/25 23:59 DIRECTED PRN Sterile Water 0 ml 04/16/25 06:00 Water,Injection,Sterile 10 Ml Vial IJ 05/15/25 23:59 DIRECTED PRN PFSH Active Problems Active Problems: Problem Status Onset Code Normocytic anemia Acute D64.9 COVID-19 Acute U07.1 Status post reverse arthroplasty of left shoulder Acute Z96.612 Lower urinary tract symptoms (LUTS) Acute R39.9 Closed fracture of left proximal humerus Acute 10/01/19 S42.202A Schizophrenia Chronic F20.9 Nicotine abuse Acute Z72.0 Medical History Medical History COPD (chronic obstructive pulmonary disease) mild Painful orthopaedic hardware (~02/2020) Tendinitis of long head of biceps brachii of left shoulder (~09/2019) Borderline personality disorder ETOH abuse Hyperlipemia Constipation Paranoid schizophrenia Surgical History Surgical History History of surgery ORIF proximal humerus left Tobacco Smoking/Tobacco Use Status: Current every day Tobacco Type: cigarettes Smoking cigarettes per day: 10 Alcohol Alcohol Intake: never Substance Use Substance use: Never Substance use type: does not use Vital Signs and Lab Results Vital Signs Most Recent Vital Signs in EMR: Most Recent Vital Signs Temp Pulse Resp BP Pulse Ox 36.2 C L 86 20 151/99 H 100 04/16/25 08:48 04/16/25 08:48 04/16/25 08:48 04/16/25 08:48 04/16/25 08:48 Anesthesia Assessment and Plan Anesthesia History Personal History: No History of Anesthesia Complications Family History: Family History Unknown Exercise Tolerance Exercise Tolerance: Metabolic Equivalents>4 Pertinent Negatives Pertinent Negatives: No Symptoms of GERD Cardiac & Pulmonary Exam Cardiac Exam: Normal S1/S2 Heart Sounds Pulmonary Exam: Clear Bilateral Breath Sounds Implantable Cardiac Device Does patient have a Pacemaker or an ICD?: No Airway Exam Known Difficult Airway: No Mallampati Class: 2 Mouth Opening: Normal (> 3cm) Thyromental Distance: Greater than 3 cm Neck Range of Motion: Full ROM Neck Circumference: Normal Teeth Condition: Normal Dentition ASA Classification ASA Score: ASA 3 Emergency Case?: No NPO Status NPO Status: NPO Clears >2 hours, Solids >8 hours Anesthesia Plan Resuscitation Status: Full Code Anesthesia Technique: General Anesthesia Airway Planned: Natural Airway Monitors Used: Standard Monitors
--- NOTE | 2025-04-16 09:26 | W.PM.DSUDISC ---
Date of service: 04/16/25 Discharge Plan Disposition Patient Disposition: Home Condition: Stable Discharge Details Attending Provider: Luz Mccollum Primary Care Provider: Vaibhav Brock Recommendations for Follow Up Recommended tests to be ordered by follow up provider: results of endoscopy, anemia follow up Home Meds and New Rx's Prescriptions: New pantoprazole 40 mg tablet,delayed release (DR/EC) 40 mg PO BID Qty: 60 11RF Continued atorvastatin 20 mg tablet 20 mg PO HS alfuzosin [Uroxatral] 10 mg tablet extended release 24 hr 10 mg PO DAILY Qty: 90 4RF Rx Instructions: administer after the same meal each day glycopyrrolate [Robinul] 1 mg tablet 1 mg PO BID-TID PRN doxazosin [Cardura] 2 mg tablet 2 mg PO DAILY polyethylene glycol 3350 17 gram/dose powder 238 g PO ONCE Qty: 238 0RF Rx Instructions: take per colonoscopy instructions carbamazepine 200 mg tablet 400 mg PO BID diphenhydramine HCl [Benadryl] 25 mg Capsule 25 - 50 mg PO Q6H PRN loperamide 2 mg Tablet 2 - 4 mg PO PRN PRN magnesium hydroxide [Milk of Magnesia] 400 mg/5 mL Suspension 5 - 15 ml PO PRN PRN Cerovite Senior Tablet 1 tab PO QAM cholecalciferol (vitamin D3) [Vitamin D3] 400 unit Tablet 800 unit PO QAM docusate sodium [Dulcolax Stool Softener (dss)] 100 mg capsule 100 mg PO DAILY Qty: 30 2RF alum-mag hydroxide-simeth [Mylanta Maximum Strength] 400-400-40 mg/5 mL Suspension 15 - 30 ml PO QID PRN amantadine HCl 100 mg Capsule 100 mg PO BID NewFlora 10 billion cell capsule 10,000 mmu cells PO DAILY acetaminophen 325 MG tablet 650 mg PO PRN PRN (Reason: Discomfort) polyethylene glycol 3350 17 GM powder in packet 17 gm PO DAILY clonazepam 0.5 MG tablet 0.5 mg PO BID PRN propranolol 60 MG tablet 60 mg PO BID Patient Comments: Hold for pulse <50 buspirone 10 MG tablet 20 mg PO QAM clozapine [Clozaril] 100 mg Tablet 300 mg PO QAM clonazepam 0.5 mg Tablet 0.5 mg PO DAILY MDD 2mg calcium carbonate 500 mg calcium (1,250 mg) Tablet,Chewable 500 - 1,000 mg PO Q4H PRN Changed pantoprazole 40 MG tablet,delayed release (DR/EC) 40 mg PO BID Qty: 60 11RF Discontinued bisacodyl [Dulcolax (bisacodyl)] 5 mg tablet,delayed release (DR/EC) 5 mg PO ONCE Qty: 4 0RF Rx Instructions: take per colonoscopy instructions Discharge Instructions Stand Alone Forms: Anesthesia Discharge Inst., DSU Post EGD Instructions, Colonoscopy Post Instructions, Elsa Jauregui (DSU) Activity:: Activity as Tolerated Diet:: As Tolerated Discharge Orders Discharge Orders: Discharge Order (Routine); Ordered 04/16/25 Ordered By: Luz Mccollum DS: Diagnosis Discharge Diagnosis (1) Normocytic anemia: Status: Acute Asessment and Plan: Hiatal hernia and esophagitis seen on EGD, this causes reflux and could cause anemia potentially. Start new medication and take it daily, prescription sent to pharmacy. Colonoscopy - Unable to complete colonoscopy due to poor prep. Approximately 60% of the colon was seen well enough today, which isnt enough to feel sure we have evaluated what we need. Recommend repeating colonoscopy with a 2 day prep, and planning on enemas on arrival in addition if needed. The first day of the prep you will still be able to eat normal, will just need to take the medicine. Second day will be a normal prep day. CT colonography will be considered if still unable to complete colonoscopy. CT scan is not the preferred test, it can miss important things and [facility]. Lets try another colonoscopy day. Office will each out to schedule. three tiny polyps seen and removed from the rectum. (2) Dark stools: Status: Acute (3) Hiatal hernia with GERD and esophagitis: Status: Acute (4) Rectal polyp: Status: Acute
--- NOTE | 2025-04-16 09:30 | BOWEL_PTH ---
PATIENT: Real Bunch LOC: [facility] U#:[id number] AGE/SX: 59/M ROOM: RE04/16/[address]: Luz Mccollum MD : [id number] BED: DIS: 04/16/2025 SPEC #: [id number] RECD: 04/16/25 13:12 STATUS: KALANI REQ #: [id number] SUELLEN: 04/16/25 09:[address]: Luz Mccollum DEPT: Surgical Specimen RECD BY: Demetra Romero ENTERED: 04/16/25 13:13 SP TYPE: Bowel OTHR DR: Vaibhav Brock Tissues: 1 - STOMACH BIOPSY 2 - ESOPHAGUS BIOPSY 3 - BIOPSY BOWEL Procedures: GROSS AND MICRO LEVEL 4 Comments: [id number]
--- NOTE | 2025-04-16 09:36 | W.PM.ENDDOP ---
Date of service: 04/16/25 Time of Service: 09:36 Endoscopy Report DATE OF PROCEDURE: 04/16/25 PRE-OP DIAGNOSIS: anemia, dark stools POST-OP DIAGNOSIS: same (1. hiatal hernia with esophagitis) PROCEDURE: EGD with biopsy SURGEON: Luz Mccollum ANESTHESIA TYPE: MAC ESTIMATED BLOOD LOSS: 2 PATHOLOGY: other (1. Antrum biopsy. 2. distal esophagus biopsy) COMPLICATIONS: None DISPOSITION: PACU PROCEDURE DESCRIPTION: Lubricated endoscope was passed through a bite block into the second portion of the duodenum. The endoscope was withdrawn and the duodenum stomach and esophageal mucosa examined. The duodenum appeared normal. There is no inflammation or ulceration or erosion. The antrum appears normal. The fundus appears normal. The cardia appears normal. There is small to moderate sized hiatal hernia upon retroflexion. The distal esophagus shows evidence of chronic inflammation without ulceration, varices or candidiasis. The Z-line is irregular and projects above the Z line by 1 cm. Remainder of the esophagus appears normal Cold forceps biopsies obtained from the antrum and the distal esophagus for microscopic evaluation for H. pylori and Barretts esophagitis. The upper digestive system was desufflated and the endoscope withdrawn. No complications. Assessment and plan: Mild to moderate esophagitis with possible barretts. Follow up biopsy results. Start daily pantprazole 40mg daily. Antral and esophageal biopsies will determine next steps in care.
--- NOTE | 2025-04-16 10:08 | COLE_ITS ---
Date of service: 04/16/25 Time of Service: 10:08 Colonoscopy Report Date of procedure: 04/16/25 Pre-op diagnosis general: Anemia, dark stools Post-op diagnosis procedure note: same (1. poor prep. 2. multiple rectum polyps) Procedure: Colonoscopy to ascending colon with rectal polypectomy Surgeon: Luz Mccollum Anesthesia Type: MAC Estimated blood loss (mL): 1 Pathology: other (1. Multiple rectum polyps) Indications: Anemia, dark stools, abnormal CT of colon in 10/2024 Prep: Miralax/Dulcolax (Poor prep quality, unable to complete exam) Procedure Description: Informed consent was obtained and the patient was taken to the procedure area. The patient was placed in left lateral decubitus position on the procedure table. Timeout was performed. Anesthesia was induced. A lubricated colonoscop e was inserted through the anus and passed to ascending colon. Poor prep with thick residual liquid stool, precluded safe completion of colonoscopy. The hepatic flexure was identified and passed, and a portion of the distal ascending colon was seen. Unable to proceed beyond the distal ascending colon due to poor prep. The scope was then slowly withdrawn and the colonic and rectal mucosa examined. Rectu with three adjacent flat polyps measuring 3mm, 3mm and 4mm. Excised with cold forceps, and sent together as :multiple rectum polyps. Unable to retroflex and view due to residual stool. Assessment and plan; Unable to complete colonoscopy due to poor prep. Approximately 60% of the colon was seen well enough today, insufficient exam for the diagnoses at hand. Recommend repeating colonoscopy with a 2 day prep, and planning on enemas on arrival in addition if needed. CT colonography will also be ordered due to normocytic anemia, dark stools and abnormal CT of colon in 10/2024.
--- NOTE | 2025-04-16 11:36 | W.ANESPOSTOP ---
Postoperative Evaluation Date, Time and Location Date Performed: 04/16/25 Time Performed: 11:36 Patient Location: Day Surgery Unit Vital Signs Most Recent Imported Vital Signs: Most Recent Vital Signs Temp Pulse Resp BP Pulse Ox 36 C L 64 16 111/81 100 04/16/25 11:02 04/16/25 11:02 04/16/25 11:02 04/16/25 11:02 04/16/25 11:02 Pain Score Most Recent Pain Score: Most Recent Pain Score Pain Level 0 04/16/25 11:02 Assessment Mental Status: Awake (Alert & Oriented to Patient Baseline) Airway and Respiratory Function: Patent airway with normal (patient baseline) respiratory exam Cardiovascular Function: Hemodynamically Stable Hydration Status: Adequately Hydrated Nausea & Vomiting: No Nausea or Vomiting Pain: Pt. Denies Any Pain Peripheral Nerve Block: Patient did not receive a nerve block
== END 2025-04-16 11:45 | disposition home or self-care (01) ==
PROVIDERS: PCP Internal Medicine; Visit Provider Surgery
PROC: (CPT 45380; principal; 2025-04-16 10:45)
DX: D64.9 Anemia, unspecified (principal); R19.5 Other fecal abnormalities; K44.9 Diaphragmatic hernia without obstruction or gangrene; K21.00 Gastro-esophageal reflux disease with esophagitis, without bleeding; K62.1 Rectal polyp
CPT/HCPCS: 45380; 43239; 88305; J2003; J2704

== ENCOUNTER 2025-04-20 18:50 | Outpatient (REF) | payer MEDICAID, SELFPAY ==
[2025-04-20 18:58] LABS: Abs Immature Grans 0.01 10^3/uL (0.0-0.06); HCT 33.0 % (40.0-50.0); HGB 11.1 g/dL (13.5-17.5); Immature Grans % 0.2 %; MCH 31.4 pg (27.0-33.0); MCHC 33.6 % (32.0-36.0); MCV 93 fL (80-95); MPV 9.9 fL (8.0-11.0); Platelet Count 167 10^3/uL (130-400); RBC 3.54 10^6/uL (4.36-5.78); RDW 14.6 % (11.8-14.1); RDW-SD 50.9 fL; WBC 4.81 10^3/uL (4.4-10.8)
== END 2025-04-20 18:51 | disposition home or self-care (01) ==
LOC: NCHCN 18:50
PROVIDERS: PCP Internal Medicine; Visit Provider Internal Medicine
DX: F20.9 Schizophrenia, unspecified (principal)
CPT/HCPCS: 85025

== ENCOUNTER 2025-05-20 14:39 | Outpatient (REF) | payer MEDICAID, SELFPAY ==
[2025-05-20 20:16] LABS: Abs Immature Grans 0.01 10^3/uL (0.0-0.06); HCT 37.4 % (40.0-50.0); HGB 12.7 g/dL (13.5-17.5); Immature Grans % 0.2 %; MCH 32.3 pg (27.0-33.0); MCHC 34.0 % (32.0-36.0); MCV 95 fL (80-95); MPV 9.4 fL (8.0-11.0); Platelet Count 223 10^3/uL (130-400); RBC 3.93 10^6/uL (4.36-5.78); RDW 13.9 % (11.8-14.1); RDW-SD 49.1 fL; WBC 5.33 10^3/uL (4.4-10.8)
== END 2025-05-20 14:40 | disposition home or self-care (01) ==
LOC: NCHCN 14:39
PROVIDERS: PCP Internal Medicine; Visit Provider Internal Medicine
DX: F20.9 Schizophrenia, unspecified (principal)
CPT/HCPCS: 85025

== ENCOUNTER 2025-06-10 10:21 | Outpatient (REF) | payer MEDICAID, SELFPAY ==
[2025-06-10 20:11] LABS: Abs Immature Grans 0.02 10^3/uL (0.0-0.06); HCT 40.7 % (40.0-50.0); HGB 13.8 g/dL (13.5-17.5); Immature Grans % 0.5 %; MCH 31.8 pg (27.0-33.0); MCHC 33.9 % (32.0-36.0); MCV 94 fL (80-95); MPV 9.9 fL (8.0-11.0); Platelet Count 186 10^3/uL (130-400); RBC 4.34 10^6/uL (4.36-5.78); RDW 13.2 % (11.8-14.1); RDW-SD 45.6 fL; WBC 3.83 10^3/uL (4.4-10.8)
[2025-06-15 18:38] LABS: Clozapine+Norclozapine Total 3040 ng/mL
== END 2025-06-10 10:22 | disposition home or self-care (01) ==
LOC: NCHCN 10:21
PROVIDERS: Psychiatry & Neurology Psychiatry; PCP Internal Medicine; Visit Provider Internal Medicine
DX: F20.9 Schizophrenia, unspecified (principal)
CPT/HCPCS: 80159; 85025

== ENCOUNTER 2025-06-18 10:28 | Day surgery (SDC) | payer MEDICAID, SELFPAY ==
[2025-06-18 10:30] VITALS: BP 113/83; PULSE 80; RESP 16; TEMP 35.7; O2SAT 100
--- NOTE | 2025-06-18 10:33 | W.PM.HP.N ---
Date of service: 06/18/25 Time of Service: 10:51 Assessment and Plan Assessment and plan (1) Dark stools: Status: Acute (2) Normocytic anemia: Status: Acute Assessment and plan: proceed with colonoscopy today for evaluation of symptomatic anemia and dark stools, history of rectum polyp. He was hesitant to proceed and we talked it through for about 20 minutes. He was nervous that he could develop a nerve injury from any cuts I might make. I reminded him this is not surgery, its a procedure through a natural orifice. No incisions are planned. Though the risks are present and reviewed as including but not limited to pain, bleeding, perforation, missed lesion, aspiration, sore throat, adverse reaction to medications, this is a safe, common and well tolerated procedure. He forgot that he had polyps in the past. I reminded him that we discussed these things when we met in march and again at his colonoscopy encounter following that visit. He was reassured and agreeable to the procedure and he signed the consent form. Enemas today x2 to help ensure more adequate visualization during exam today. I explained it to him and so did the nurse. he is agreeable. Proceed as planned. History of Present Illness History of Present Illness Chief Complaint: colonoscopy Narrative: 59yo M here for colonoscopy. He was seen in March and attempt at colonoscopy at that time was not successful due to poor prep. He returns today for colonoscopy. HPI from his previous visit describing his symptoms is as follows: This is a 59-year-old female who was referred to me for EGD and colonoscopy for anemia. His hemoglobin was 12.5 on a recent check. He has no clear known cause for his normocytic anemia. He has never had a colonoscopy. He reports to me that he experiences black stools more often than just occasionally. He used to have fully normal stools and it is normal for him to experience a bowel movement only once every 4 days. He has soft but bulky stools once every 4 days the stools are large-volume and he has noticed them being particularly dark in the recent months. He denies any abdominal pain. Denies any red blood in the stool. Denies any difficulty eating or change in appetite. He denies any unplanned weight loss. No family history of colon or rectal cancer. No personal history of Crohn's disease or ulcerative colitis. No previous abdominal surgery. Generally he feels well on a regular basis. He does experience lower urinary tract symptoms including dysuria and hesitancy on occasion. He has had left shoulder surgery after a fall in the past and experiences joint pain in the shoulders as a result. PFSH All Active Problems Rectal polyp (Acute) Hiatal hernia with GERD and esophagitis (Acute) Dark stools (Acute) Normocytic anemia (Acute) COVID-19 (Acute) Status post reverse arthroplasty of left shoulder (Acute) Lower urinary tract symptoms (LUTS) (Acute) Closed fracture of left proximal humerus (Acute 10/01/19) S/P ORIF 10/16/2019 Schizophrenia (Chronic) Nicotine abuse (Acute) Medical History COPD (chronic obstructive pulmonary disease) mild Painful orthopaedic hardware (~02/2020) Tendinitis of long head of biceps brachii of left shoulder (~09/2019) Borderline personality disorder ETOH abuse Hyperlipemia Constipation Paranoid schizophrenia Surgical History History of colonoscopy (~04/16/25) History of surgery ORIF proximal humerus left Social History Smoking/Tobacco Use Status: Current every day Tobacco Type: cigarettes Smoking risk assessment performed?: Yes Alcohol Intake: never Drug use: Never Substance use type: does not use Housing: assisted living facility Current gender identity: male Additional Social history: [facility] resident, pt will want caregiver or assigned staff to be with him at all times, when possible. Pt also needs things explained in short, simple phrasing as too much information is overwhelming for him Per caregiver: On rare occasions caregiver states he will make inappropriate touch. Meds Allergies and Home Medications Allergies Allergy/AdvReac Type Severity Reaction Status Date / Time No Known Allergies Allergy Verified 06/15/25 14:08 Home Medications ?Medication ?Instructions ?Recorded ?Confirmed ?Type acetaminophen 325 mg tablet 650 mg PO PRN PRN Discomfort 01/19/17 06/18/25 History buspirone 10 mg tablet 20 mg PO QAM 01/19/17 06/18/25 History clonazepam 0.5 mg tablet 0.5 mg PO BID PRN 01/19/17 06/18/25 History polyethylene glycol 3350 17 gram 17 gm PO DAILY 01/19/17 06/15/25 History oral powder packet propranolol 60 mg tablet 60 mg PO BID 01/19/17 06/18/25 History cholecalciferol (vitamin D3) 10 800 unit PO QAM 05/04/19 06/18/25 History mcg (400 unit) tablet (Vitamin D3) diphenhydramine HCl 25 mg capsule 25 - 50 mg PO Q6H PRN 05/04/19 06/18/25 History (Benadryl) docusate sodium 100 mg capsule 100 mg PO DAILY #30 caps 05/04/19 06/18/25 Rx (Dulcolax Stool Softener (docusate)) loperamide 2 mg tablet 2 - 4 mg PO PRN PRN 05/04/19 06/18/25 History magnesium hydroxide 400 mg/5 mL 5 - 15 ml PO PRN PRN 05/04/19 06/18/25 History oral suspension (Milk of Magnesia) cffbweblxdop-[id number]-[id number] 1 tab PO QAM 05/04/19 06/18/25 History tablet (Cerovite Senior) aluminum-mag hydroxide-simethicone 15 - 30 ml PO QID PRN 10/09/19 06/18/25 History 400 mg-400 mg-40 mg/5 mL oral susp (Mylanta Maximum Strength) amantadine HCl 100 mg capsule 100 mg PO BID 10/16/19 06/18/25 History atorvastatin 20 mg tablet 20 mg PO HS 04/28/20 06/18/25 History calcium carbonate 500 - 1,000 mg PO Q4H PRN 02/27/23 06/18/25 History clonazepam 0.5 mg tablet 0.5 mg PO DAILY 02/27/23 06/18/25 History clozapine 100 mg tablet (Clozaril) 300 mg PO QAM 02/27/23 06/18/25 History Lactobacillus acidophilus 10 10,000 mmu cells PO DAILY 06/07/24 06/18/25 History billion cell capsule (NewFlora) alfuzosin 10 mg tablet,extended 10 mg PO DAILY #90 tabs 12/05/24 06/18/25 Rx release 24 hr (Uroxatral) carbamazepine 200 mg tablet 400 mg PO BID 03/18/25 06/18/25 History doxazosin 2 mg tablet (Cardura) 2 mg PO DAILY 03/18/25 06/18/25 History glycopyrrolate 1 mg tablet 1 mg PO BID-TID PRN 03/18/25 06/18/25 History (Norberto) pantoprazole 40 mg tablet,delayed 40 mg PO BID #60 tabs 04/16/25 06/18/25 Rx release polyethylene glycol 3350 17 238 g PO ONCE #238 grams 06/15/25 06/18/25 Rx gram/dose oral powder bisacodyl 5 mg tablet,delayed 5 mg PO ONCE Colonoscopy Bowel 06/16/25 06/18/25 Rx release Prep #8 tabs Exam Narrative Exam Narrative: awake, NAD eomi, MMM midline trachea, neck is symmetric PULM: normal resp effort, equal chest rise with respiration, no wheezing audible CARDIAC: normal PMI, no jvd, regular rate, normal perfusion abdomen is nondistended. extremities are without deformity, normal movement of all four extremities speech is clear and coherent mood and affect are congruent, no focal neurological deficits skin without rash Time Spent Time spent with Patient: 40-54 minutes Time was spent: preparing to see the patient(eg.review tests), counseling the patient and care coordination
[2025-06-18] MEDS: Na Phosphate Enema-Adult 133 ML BTL PR ×2 (11:19→11:39)
--- NOTE | 2025-06-18 11:26 | W.ANESPRE ---
General Info Date of Service Date Performed: 06/18/25 Height: 5 ft 8 in Weight: 83.9 kg Body Mass Index (BMI): 28.1 Surgical Procedure: Operation Date: 06/18/25 11:35 Proposed Procedure Side Surgeon anjum Mccollum MD Meds Allergies and Home Medications Allergies Allergy/AdvReac Type Severity Reaction Status Date / Time No Known Allergies Allergy Verified 06/15/25 14:08 Home Medication ?Medication ?Instructions ?Recorded acetaminophen 325 mg tablet 650 mg PO PRN PRN Discomfort 01/19/17 buspirone 10 mg tablet 20 mg PO QAM 01/19/17 clonazepam 0.5 mg tablet 0.5 mg PO BID PRN 01/19/17 polyethylene glycol 3350 17 gram 17 gm PO DAILY 01/19/17 oral powder packet propranolol 60 mg tablet 60 mg PO BID 01/19/17 cholecalciferol (vitamin D3) 10 800 unit PO QAM 05/04/19 mcg (400 unit) tablet (Vitamin D3) diphenhydramine HCl 25 mg capsule 25 - 50 mg PO Q6H PRN 05/04/19 (Benadryl) docusate sodium 100 mg capsule 100 mg PO DAILY #30 caps 05/04/19 (Dulcolax Stool Softener (docusate)) loperamide 2 mg tablet 2 - 4 mg PO PRN PRN 05/04/19 magnesium hydroxide 400 mg/5 mL 5 - 15 ml PO PRN PRN 05/04/19 oral suspension (Milk of Magnesia) pqtctjyeusol-rpyifsep-qjqwnj 1 tab PO QAM 05/04/19 tablet (Cerovite Senior) aluminum-mag hydroxide-simethicone 15 - 30 ml PO QID PRN 10/09/19 400 mg-400 mg-40 mg/5 mL oral susp (Mylanta Maximum Strength) amantadine HCl 100 mg capsule 100 mg PO BID 10/16/19 atorvastatin 20 mg tablet 20 mg PO HS 04/28/20 calcium carbonate 500 - 1,000 mg PO Q4H PRN 02/27/23 clonazepam 0.5 mg tablet 0.5 mg PO DAILY 02/27/23 clozapine 100 mg tablet (Clozaril) 300 mg PO QAM 02/27/23 Lactobacillus acidophilus 10 10,000 mmu cells PO DAILY 06/07/24 billion cell capsule (NewFlora) alfuzosin 10 mg tablet,extended 10 mg PO DAILY #90 tabs 12/05/24 release 24 hr (Uroxatral) carbamazepine 200 mg tablet 400 mg PO BID 03/18/25 doxazosin 2 mg tablet (Cardura) 2 mg PO DAILY 03/18/25 glycopyrrolate 1 mg tablet 1 mg PO BID-TID PRN 03/18/25 (Robinul) pantoprazole 40 mg tablet,delayed 40 mg PO BID #60 tabs 04/16/25 release Current Visit Medications: Current Medications Generic Name Dose Route Start Last Admin Trade Name Freq PRN Reason Stop Dose Admin Ringer's Solution 1,000 mls @ 80 mls/hr 06/18/25 06:00 IV 06/18/25 23:59 INFUSION MANUELA IV Miscellaneous Supplies 1 each 06/18/25 06:00 Iv Access IV 06/18/25 23:59 DIRECTED MANUELA Sodium Biphosphate/Sodium Phosphate 133 ml 06/18/25 06:00 06/18/25 11:19 Na Phosphate Enema-Adult 133 Ml Btl ME 06/18/25 23:59 1 applic DIRECTED PRN Administration Sodium Chloride 0 ml 06/18/25 06:00 Normal Saline Flush 10 Ml Syr IV 06/18/25 23:59 PRN PRN Sodium Chloride 0 ml 06/18/25 06:00 Normal Saline 10 Ml Vial IJ 06/18/25 23:59 DIRECTED PRN Sterile Water 0 ml 06/18/25 06:00 Water,Injection,Sterile 10 Ml Vial IJ 06/18/25 23:59 DIRECTED PRN PFSH Active Problems Active Problems: Problem Status Onset Code Rectal polyp Acute K62.1 Hiatal hernia with GERD and esophagitis Acute K44.9, K21.00 Dark stools Acute R19.5 Normocytic anemia Acute D64.9 COVID-19 Acute U07.1 Status post reverse arthroplasty of left shoulder Acute Z96.612 Lower urinary tract symptoms (LUTS) Acute R39.9 Closed fracture of left proximal humerus Acute 10/01/19 S42.202A Schizophrenia Chronic F20.9 Nicotine abuse Acute Z72.0 Medical History Medical History COPD (chronic obstructive pulmonary disease) mild Painful orthopaedic hardware (~02/2020) Tendinitis of long head of biceps brachii of left shoulder (~09/2019) Borderline personality disorder ETOH abuse Hyperlipemia Constipation Paranoid schizophrenia Surgical History Surgical History History of colonoscopy (~04/16/25) History of surgery ORIF proximal humerus left Tobacco Smoking/Tobacco Use Status: Current every day Tobacco Type: cigarettes Smoking cigarettes per day: 10 Passive smoking exposure: No Alcohol Alcohol Intake: never Substance Use Substance use: Never Substance use type: does not use Vital Signs and Lab Results Vital Signs Most Recent Vital Signs in EMR: Most Recent Vital Signs Temp Pulse Resp BP Pulse Ox 35.7 C L 80 16 113/83 100 06/18/25 10:30 06/18/25 10:30 06/18/25 10:30 06/18/25 10:30 06/18/25 10:30 Lab Results Complete Blood Count: WBC, (4.4-10.8) 3.83 10^3/uL L 06/10/25, 10:00 RBC, (4.36-5.78) 4.34 10^6/uL L 06/10/25, 10:00 Hgb, (13.5-17.5) 13.8 g/dL 06/10/25, 10:00 Hct, (40.0-50.0) 40.7 % 06/10/25, 10:00 Plt Count, (130-400) 186 10^3/uL 06/10/25, 10:00 Imaging and Studies Imaging and Studies Study information below may be from another EMR and interpreted by another provider. Please see original notes in EMR for more complete details. EKG Summary: EKG PATIENT NAME: Real Bunch UNIT #: [id number] ORDERING PROVIDER: Justine Garcia M.D. PRIMARY CARE PROVIDER: PAKO BROCK MD DATE/TIME OF SERVICE: 06/07/24 1005 : 1965 PERFORMING LOCATION: ER APPROVED REPORT Exam: Resting ECG Reason for Exam: chest pain Patient Location: E HR:64 bpm ECG Measurements Heart Rate 64 AXIS ME 167 P 76 QRSd 136 QRS 74 QT 441 T-3 QTc 456 Conclusion Sinus rhythm, rate 64 RBBB, no priors available for comparison No STEMI Pulmonary Function Summary: Date of service: 10/19/22 Time of Service: 15:01 Pulmonary Function Test Result Requesting Provider Pako Brock Indications: COPD Interpretation Spirometry: There is no airflow limitation. The FVC is low. Impression Normal spirometry. The low FVC may be pseudo-restriction from an elevated BMI, however restrictive lung disease can be ruled out without lung volume testing. Clinical Correlation therefore is recommended. cc: Dictated by: JENNY CHAVIS MD Dictated: 10/20/22 Time: 813 <Electronically signed by Jenny Sheth Anesthesia Assessment and Plan Anesthesia History Personal History: No History of Anesthesia Complications Family History: Family History Unknown Exercise Tolerance Exercise Tolerance: Metabolic Equivalents>4 Pertinent Negatives Pertinent Negatives: No Major Cardiovascular Symptoms or Complaints and No Major Pulmonary Symptoms or Complaints Cardiac & Pulmonary Exam Cardiac Exam: Normal S1/S2 Heart Sounds Pulmonary Exam: Clear Bilateral Breath Sounds Implantable Cardiac Device Does patient have a Pacemaker or an ICD?: No Airway Exam Known Difficult Airway: No Mallampati Class: 2 Mouth Opening: Normal (> 3cm) Thyromental Distance: Greater than 3 cm Neck Range of Motion: Full ROM Neck Circumference: Normal Teeth Condition: Normal Dentition ASA Classification ASA Score: ASA 3 Emergency Case?: No NPO Status NPO Status: NPO Clears >2 hours, Solids >8 hours Anesthesia Plan Resuscitation Status: Full Code Anesthesia Technique: General Anesthesia Airway Planned: Natural Airway Monitors Used: Standard Monitors
[2025-06-18 11:42] VITALS: BMI 28.1
--- NOTE | 2025-06-18 11:43 | W.PM.DSUDISC ---
Date of service: 06/18/25 Discharge Plan Disposition Patient Disposition: Home Condition: Stable Discharge Details Attending Provider: Luz Mccollum Primary Care Provider: Vaibhav Brock Recommendations for Follow Up Recommended tests to be ordered by follow up provider: Inadequate prep for viewing the ascending colon. Normal visualized portions of colon and rectum today as our second attempt at this, but exam is incomplete because the hepatic flexure and ascending colon could not be seen. This is despite a two day prep and two preprocedural enemas. His anemia seems to be resolved by lab criteria. Colon exam not complete for screening or diagnostic purposes or for ruling out a proximal colon lesion. Will refer back to PCP who can decide if CT colonography or another repeat endoscopy vs cologuard exam now that the anemia has resolved would be more appropriate in this challenging situation. Home Meds and New Rx's Prescriptions: Continued atorvastatin 20 mg tablet 20 mg PO HS alfuzosin [Uroxatral] 10 mg tablet extended release 24 hr 10 mg PO DAILY Qty: 90 4RF Rx Instructions: administer after the same meal each day glycopyrrolate [Robinul] 1 mg tablet 1 mg PO BID-TID PRN doxazosin [Cardura] 2 mg tablet 2 mg PO DAILY carbamazepine 200 mg tablet 400 mg PO BID diphenhydramine HCl [Benadryl] 25 mg Capsule 25 - 50 mg PO Q6H PRN loperamide 2 mg Tablet 2 - 4 mg PO PRN PRN magnesium hydroxide [Milk of Magnesia] 400 mg/5 mL Suspension 5 - 15 ml PO PRN PRN Cerovite Senior Tablet 1 tab PO QAM cholecalciferol (vitamin D3) [Vitamin D3] 400 unit Tablet 800 unit PO QAM docusate sodium [Dulcolax Stool Softener (dss)] 100 mg capsule 100 mg PO DAILY Qty: 30 2RF alum-mag hydroxide-simeth [Mylanta Maximum Strength] 400-400-40 mg/5 mL Suspension 15 - 30 ml PO QID PRN amantadine HCl 100 mg Capsule 100 mg PO BID NewFlora 10 billion cell capsule 10,000 mmu cells PO DAILY acetaminophen 325 MG tablet 650 mg PO PRN PRN (Reason: Discomfort) polyethylene glycol 3350 17 GM powder in packet 17 gm PO DAILY clonazepam 0.5 MG tablet 0.5 mg PO BID PRN propranolol 60 MG tablet 60 mg PO BID Patient Comments: Hold for pulse <50 buspirone 10 MG tablet 20 mg PO QAM clozapine [Clozaril] 100 mg Tablet 300 mg PO QAM clonazepam 0.5 mg Tablet 0.5 mg PO DAILY MDD 2mg calcium carbonate 500 mg calcium (1,250 mg) Tablet,Chewable 500 - 1,000 mg PO Q4H PRN pantoprazole 40 MG tablet,delayed release (DR/EC) 40 mg PO BID Qty: 60 11RF Discontinued polyethylene glycol 3350 17 gram/dose powder 238 g PO ONCE Qty: 238 0RF Rx Instructions: For Colonoscopy bowel prep, as directed by office bisacodyl 5 mg tablet,delayed release (DR/EC) 5 mg PO ONCE Qty: 8 0RF Rx Instructions: Per Colonoscopy bowel prep instructions Discharge Instructions Additional Instructions: Much better job on the prep this time. The right side of the colon still could not be seen. Rather than scheduling a THIRD colonoscopy for you, I will have you return to see your primary care doctor who can decide if he still wants us to keep trying, or if he wants to try other alternative tests for looking at the colon. No polyps or growths this time. what I could see of the colon and rectum are healthy. Activity:: Activity as Tolerated Diet:: As Tolerated Discharge Orders Discharge Orders: Discharge Order (Routine); Ordered 06/18/25 Ordered By: Luz Mccollum DS: Diagnosis Discharge Diagnosis (1) Dark stools: Status: Acute (2) Normocytic anemia: Status: Acute
--- NOTE | 2025-06-18 11:48 | COLE_ITS ---
Date of service: 06/18/25 Time of Service: 12:36 Colonoscopy Report Date of procedure: 06/18/25 Pre-op diagnosis general: dark stools, anemia Post-op diagnosis procedure note: same Procedure: Colonoscopy to hepatic flexure Surgeon: Luz Mccollum Anesthesia Type: General:No Airway Estimated blood loss (mL): 0 Pathology: none sent Complications: None Disposition: same day Prep: Miralax/Dulcolax (Good prep in distal transverse, descending colon and rectum. Poor in sigmoid and ascending colon. ) Procedure Description: Two day prep was completed by the patient, followed by 2 Fleet enemas in the tx eprocedural holding area. Informed consent was obtained and the patient was taken to the procedure area. The patient was placed in left lateral decubitus position on the procedure table. Timeout was performed. Anesthesia was induced. A lubricated colonoscope was inserted through the anus and passed to the hepatic flexure. There was thick stool residual in the ascending colon and the hepatic flexure, too thick to suction, so evaluation of the ascending colon and proximal is not able to be done. The scope was then slowly withdrawn and the colonic and rectal mucosa examined. There are no colon or rectal mass lesions, polyps, AVMs in the visualized colon and rectum. There is no inflammatory change. Pooling of thick stool in the sigmoid was irrigated and suctioned away. No diverticulosis was seen. The scope was retroflexed in the anorectal junction examined. Uncomplicated internal hemorrhoids present. Assessment and plan: Anemia (normocytic, resolved since initial office visit with me) dark stools Inadequate prep for viewing the ascending colon. Normal visualized portions of colon and rectum. Exam is incomplete because the hepatic flexure and ascending colon could not be seen. This is despite a second attempt colonoscopy with two day prep and two preprocedural enemas. His anemia seems to be resolved by lab criteria. Colon exam not complete for screening or diagnostic purposes or for ruling out a proximal colon lesion. Will refer back to PCP who can decide if CT colonography or another repeat endoscopy vs cologuard exam now that the anemia has resolved would be more appropriate in this challenging situation.
[2025-06-18] MEDS: Lactated Ringers 1,000 ML 80 ML IV (12:00)
[2025-06-18 12:32] VITALS: BP 85/65; PULSE 67; RESP 20; TEMP 36.1; O2SAT 98
[2025-06-18 12:42] VITALS: BP 99/71; PULSE 66; O2SAT 98
[2025-06-18 13:00] VITALS: BP 114/78; PULSE 66; RESP 17; TEMP 36.1; O2SAT 98
--- NOTE | 2025-06-18 13:08 | W.ANESPOSTOP ---
Postoperative Evaluation Date, Time and Location Date Performed: 06/18/25 Time Performed: 13:09 Patient Location: Day Surgery Unit Vital Signs Most Recent Imported Vital Signs: Most Recent Vital Signs Temp Pulse Resp BP Pulse Ox 36.1 C L 66 17 114/78 98 06/18/25 13:00 06/18/25 13:00 06/18/25 13:00 06/18/25 13:00 06/18/25 13:00 Pain Score Most Recent Pain Score: Most Recent Pain Score Pain Level 0 06/18/25 13:00 Assessment Mental Status: Awake (Alert & Oriented to Patient Baseline) Airway and Respiratory Function: Patent airway with normal (patient baseline) respiratory exam Cardiovascular Function: Hemodynamically Stable Hydration Status: Adequately Hydrated Nausea & Vomiting: No Nausea or Vomiting Pain: Pt. Denies Any Pain Peripheral Nerve Block: Patient did not receive a nerve block
== END 2025-06-18 10:29 | disposition home or self-care (01) ==
PROVIDERS: PCP Internal Medicine; Visit Provider Surgery
PROC: 0DJD8ZZ Inspection of Lower Intestinal Tract, Via Natural or Artificial Opening Endoscopic (ICD-10-PCS; CPT 45378; principal; 2025-06-18 11:30)
DX: R19.5 Other fecal abnormalities (principal); D64.9 Anemia, unspecified
CPT/HCPCS: 45378; J2704

== ENCOUNTER 2025-07-15 12:54 | Outpatient (REF) | payer MEDICAID, SELFPAY ==
[2025-07-15 20:27] LABS: Abs Immature Grans 0.01 10^3/uL (0.0-0.06); HCT 39.1 % (40.0-50.0); HGB 13.3 g/dL (13.5-17.5); Immature Grans % 0.2 %; MCH 31.7 pg (27.0-33.0); MCHC 34.0 % (32.0-36.0); MCV 93 fL (80-95); MPV 10.0 fL (8.0-11.0); Platelet Count 152 10^3/uL (130-400); RBC 4.19 10^6/uL (4.36-5.78); RDW 12.7 % (11.8-14.1); RDW-SD 43.8 fL; WBC 6.22 10^3/uL (4.4-10.8)
== END 2025-07-15 12:55 | disposition home or self-care (01) ==
LOC: NCHCN 12:54
PROVIDERS: PCP Internal Medicine; Visit Provider Internal Medicine
DX: F20.9 Schizophrenia, unspecified (principal)
CPT/HCPCS: 85025

== ENCOUNTER 2025-08-12 11:34 | Outpatient (REF) | payer MEDICAID, SELFPAY ==
[2025-08-12 20:19] LABS: Abs Immature Grans 0.03 10^3/uL (0.0-0.06); HCT 38.4 % (40.0-50.0); HGB 12.6 g/dL (13.5-17.5); Immature Grans % 0.4 %; MCH 30.5 pg (27.0-33.0); MCHC 32.8 % (32.0-36.0); MCV 93 fL (80-95); MPV 9.0 fL (8.0-11.0); Platelet Count 215 10^3/uL (130-400); RBC 4.13 10^6/uL (4.36-5.78); RDW 12.7 % (11.8-14.1); RDW-SD 43.4 fL; WBC 7.44 10^3/uL (4.4-10.8)
== END 2025-08-12 11:35 | disposition home or self-care (01) ==
LOC: NCHCN 11:34
PROVIDERS: PCP Internal Medicine; Visit Provider Internal Medicine
DX: F20.9 Schizophrenia, unspecified (principal)
CPT/HCPCS: 85025